=== PATIENT | female | born 1935 | race Caucasian/White ===

== ENCOUNTER → 2017-01-06 | Outpatient (CLI) | payer MEDICARE ==
[2016-04-15 11:15] VITALS: BP 99/36
[~2017-01-06] MED LIST: ASPI-630 PO; DORZ10DR3 OU; INSU100V11 IJ; MULT1TAB6 PO; NPH,100V SQ; NPH,100V5 SQ; TIMO5DRO26 OU; regular insulin SQ
--- NOTE | 2017-01-06 15:37 | RAD ---
Indication: Chronic low neck pain radiating to both shoulders. Time of exam 1510 hours. AP and lateral views of the cervical spine were obtained. Curvature is normal. There is minimal retrolisthesis of C2 on C3 and C3 on C4. There is multilevel degenerative disc disease, greatest at the C5-6 and C6-7 levels where there is moderate disc space narrowing and endplate osteophyte formation. There is multilevel facet arthropathy present as well. The prevertebral tissues are normal. No fractures are seen. Impression: Cervical spondylosis. No acute bony abnormality is detected.
--- NOTE | 2017-01-06 15:38 | RAD ---
Indication: Chronic back pain. Time of exam 1515 hours. AP and lateral views of the thoracic spine were obtained. Curvature and alignment of the thoracic spine is normal. The vertebral body heights are well-maintained. No acute compression fracture is detected. There is generalized degenerative disc disease. The pedicles and paraspinous line are intact. Impression: Thoracic spondylosis. No acute bony abnormality is detected.
== END | disposition home or self-care (01) ==
LOC: RAD 14:48
PROVIDERS: ATTEND Family Medicine
DX: M47.894 Other spondylosis, thoracic region (principal); M25.512 Pain in left shoulder; G89.29 Other chronic pain
CPT/HCPCS: 72040; 72072

== ENCOUNTER → 2017-01-19 | Outpatient (CLI) | payer MEDICARE ==
[2016-04-15 11:15] VITALS: BP 99/36
--- NOTE | 2017-01-19 13:37 | RAD ---
MRI of the cervical spine without contrast 01/19/2017 CLINICAL HISTORY: Neck pain with bilateral arm pain. TECHNIQUE: Unenhanced T1-weighted, T2-weighted and inversion recovery sagittal and gradient echo and T2-weighted axial images of the cervical spine were obtained. FINDINGS: Mild lateral curvature of the cervical spine is seen convex to the right. There is straightening of the normal cervical lordosis. Degenerative signal changes are seen involving all of the disks of the cervical spine. Degenerative signal changes are seen within the marrow surrounding all of the disks of the cervical spine. Loss of height of the C5-6 and C6-7 discs is noted. No area of abnormal signal intensity is seen involving the cervical spinal cord. Mild mucosal thickening is seen throughout the visualized paranasal sinuses. At the C2-3 disc space there is a mild generalized disc bulge. Degenerative changes are seen involving the uncovertebral and facet joints bilaterally. These findings do not result in significant central spinal canal or neural foraminal stenosis. At the C3-4 disc space there is a mild generalized disc bulge. Degenerative changes are seen involving the uncovertebral and facet joints, right greater than left. These findings do not result in significant central spinal canal or neural foraminal stenosis. At the C4-5 disc space there is a mild generalized disc bulge. Superimposed on this disc bulge is a central disc osteophyte complex. This measures 3 mm in AP diameter. Degenerative changes are seen involving the uncovertebral and facet joints, right greater than left. These findings efface the anterior and posterior CSF resulting in mild central spinal canal stenosis with mild cord impingement. Mild right-sided neural foraminal stenosis is seen. The left neural foramen is patent. At the C5-6 disc space there is a moderate generalized disc bulge. Degenerative changes are seen involving the uncovertebral and facet joints bilaterally. These findings efface the anterior and posterior CSF resulting in mild central spinal canal stenosis with mild cord impingement. Moderate bilateral neural foraminal stenosis is seen. At the C6-7 disc space there is a mild to moderate generalized disc bulge. Degenerative changes are seen uncovertebral and facet joints, left greater than right. These findings efface the anterior CSF resulting in mild central spinal canal stenosis without significant cord impingement. Mild left neural foraminal stenosis is seen. The right neural foramen is patent. At the C7-T1 disc space there is minimal generalized disc bulge. Degenerative changes are seen involving the facet joints bilaterally. These findings do not result in significant central spinal canal or neural foraminal stenosis. IMPRESSION: Degenerative changes are seen throughout the cervical spine. These findings result in mild central spinal canal stenosis with mild cord impingement at C4-5 and C5-6 and mild central spinal canal stenosis at C6-7. Mild right-sided neural foraminal stenosis is seen at C4-5. Moderate bilateral neural foraminal stenosis is seen at C5-6. Mild left neural foraminal stenosis is seen at C6-7. Electronically signed by: Dorian Rosa MD (01/19/2017 1:34 PM) [email or web address]
== END | disposition home or self-care (01) ==
LOC: MRI 13:50
PROVIDERS: ATTEND Family Medicine
DX: M47.892 Other spondylosis, cervical region (principal); M48.02 Spinal stenosis, cervical region
CPT/HCPCS: 72141

== ENCOUNTER → 2017-02-11 | Outpatient (CLI) | payer MEDICARE ==
[2016-04-15 11:15] VITALS: BP 99/36
[~2017-02-11] MED LIST changes: +methylPREDNISolone ACETATE 40 MG/ML VIAL. ONE; +methylPREDNISolone ACETATE 80 MG/ML VIAL. ONE
== END | disposition home or self-care (01) ==
LOC: PNCL 07:49
PROVIDERS: ATTEND Anesthesiology
DX: M50.123 Cervical disc disorder at C6-C7 level with radiculopathy (principal); M48.02 Spinal stenosis, cervical region; E66.9 Obesity, unspecified; F41.9 Anxiety disorder, unspecified; E78.00 Pure hypercholesterolemia, unspecified; F32.9 Major depressive disorder, single episode, unspecified; Z98.41 Cataract extraction status, right eye; Z98.42 Cataract extraction status, left eye; Z90.49 Acquired absence of other specified parts of digestive tract; Z68.45 Body mass index [BMI] 70 or greater, adult; Z86.39 Personal history of other endocrine, nutritional and metabolic disease; Z85.3 Personal history of malignant neoplasm of breast; Z83.3 Family history of diabetes mellitus; Z82.49 Family history of ischemic heart disease and other diseases of the circulatory system; Z88.1 Allergy status to other antibiotic agents; Z91.041 Radiographic dye allergy status; Z88.8 Allergy status to other drugs, medicaments and biological substances; Z91.048 Other nonmedicinal substance allergy status
CPT/HCPCS: 62321; J1030; J1040

== ENCOUNTER → 2017-06-21 | Outpatient (CLI) | payer MEDICARE ==
[2016-04-15 11:15] VITALS: BP 99/36
[~2017-06-21] MED LIST changes: -methylPREDNISolone ACETATE 40 MG/ML VIAL. ONE; -methylPREDNISolone ACETATE 80 MG/ML VIAL. ONE
--- NOTE | 2017-06-21 16:20 | CARD ---
APPROVED REPORT EXAM: Two-dimensional and M-mode echocardiogram with Doppler and color Doppler. Other Information Quality : GoodHR: 94bpm INDICATION Cardiomyopathy 2D DIMENSIONS RVDd2.8 (2.9-3.5cm)Left Atrium(2D)3.9 (1.6-4.0cm) IVSd1.3 (0.7-1.1cm)Aortic Root(2D)2.3 (2.0-3.7cm) LVDd5.2 (3.9-5.9cm)LVOT Diameter2.2 (1.8-2.4cm) PWd1.1 (0.7-1.1cm)LVDs3.3 (2.5-4.0cm) FS (%) 36.4 %PWs1.3 (0.8-1.2cm) SV83.4 mlLVEF(%)65.7 (>50%) Aortic Valve AoV Peak David.339.0cm/sAoV VTI72.7cm AO Peak GR.46.0mmHgLVOT Peak David.63.9cm/s LVOT VTI 12.27cmAO Mean GR.30mmHg DIGNA (VMAX)0.68xf2SAU (VTI)0.66cm2 AI P 1/2 Pngn370ql Mitral Valve MV E Qblvtqvq229.8cm/sMV E Peak Gr.138mmHg MV DECEL [id number] A Waqtbggx94.3cm/s MV SKM69dbR/A Ratio3.8 MVA (PHT)4.18cm2 TDI E/Lateral E'10.1E/Medial E'17.8 Tricuspid Valve TR P. Nbagezob394us/sRAP MGQMKDLU7veJa TR Peak Gr.40jdTzTDNN94fuFp Pulmonary Vein S1 Mnriokss59.2cm/sD2 Zyrwfutq37.2cm/s LEFT VENTRICLE The left ventricle is normal size. There is normal left ventricular wall thickness. Mild LV systolic dysfunction. EF 40-45% Septal motion suggestive of conduction abnormality, there is otherwise normal LV segmental wall motion. Tissue Doppler imaging reveals moderate left ventricular diastolic dysfunct ion. RIGHT VENTRICLE The right ventricle is normal size. The right ventricular systolic function is normal. ATRIA The left atrium is borderline dilated. The right atrium size is normal. The interatrial septum is int act with no evidence for an atrial septal defect or patent foramen ovale as noted on 2-D or Doppler i maging. AORTIC VALVE The aortic valve is moderately to severely calcified. Doppler and Color Flow revealed mild aortic reg urgitation. There is moderate to severe valvular aortic stenosis. MG 30 mm Hg, DIGNA 0.78. MG likely lo wer than actual due to mild LV dysfunction. MITRAL VALVE The mitral valve leaflets are thickened and calcified. There is no evidence of mitral valve prolapse. There is no mitral valve stenosis. Doppler and Color-flow revealed mild to moderate mitral regurgita tion. TRICUSPID VALVE The tricuspid valve leaflets are thickened or calcified, but open well. Doppler and Color Flow reveal ed mild to moderate tricuspid regurgitation. There is no tricuspid valve stenosis. PULMONIC VALVE Doppler and Color Flow revealed trace pulmonic valvular regurgitation. There is no pulmonic valvular stenosis. GREAT VESSELS The aortic root is normal in size. IVC was not enlarged but did not collape >50%. PERICARDIAL EFFUSION There is no pleural effusion. There is no evidence of significant pericardial effusion. Critical Notification Critical Value: No <Conclusion> Mild LV systolic dysfunction. EF 40-45% Septal motion suggestive of conduction abnormality, there is otherwise normal LV segmental wall motio n. Tissue Doppler imaging reveals moderate left ventricular diastolic dysfunction. There is moderate to severe valvular aortic stenosis. MG 30 mm Hg, DIGNA 0.78. MG likely lower than act ual due to mild LV dysfunction.
== END | disposition home or self-care (01) ==
LOC: ECHO 08:41
PROVIDERS: ATTEND Internal Medicine Cardiovascular Disease
DX: I42.9 Cardiomyopathy, unspecified (principal); I35.0 Nonrheumatic aortic (valve) stenosis; I34.0 Nonrheumatic mitral (valve) insufficiency
CPT/HCPCS: 93306

== ENCOUNTER 2017-07-16 07:32 | Emergency (ER) | payer MEDICARE ==
[2017-07-16] MEDS: IPRATRPIUM/ALBUTEROL 0.5/2.5MG 3 ML NEBU. NEB ×2 (07:59)
[2017-07-16 08:04] LABS: ADD MAN DIFF? NO
[2017-07-16 08:11] LABS: BASO # 0.1 x10^3/uL (0.0-0.2); BASO % 1 % (0-3); EOS # 0.2 x10^3/uL (0.0-0.7); EOS % 2 % (0-3); HEMATOCRIT 45.2 % (36.0-47.0); HEMOGLOBIN 14.8 g/dL (12.0-15.5); LYMPH % 15 % (24-48); MEAN CORPUSCULAR HEMOGLOBIN 29 pg (25-35); MEAN CORPUSCULAR HGB CONC 33 g/dL (31-37); MEAN CORPUSCULAR VOLUME 88 fL (79-100); MONO # 0.9 x10^3/uL (0.0-1.1); MONO % 13 % (0-9); NEUT # 4.8 x10^3uL (1.8-7.7); NEUT % 69 % (31-73); PLATELET COUNT 214 x10^3/uL (140-400); RED BLOOD COUNT 5.14 x10^6/uL (3.50-5.40); RED CELL DISTRIBUTION WIDTH 13.9 % (11.5-14.5); WHITE BLOOD COUNT 6.9 x10^3/uL (4.0-11.0)
[2017-07-16] MEDS ORDERED: ONDANSETRON PF 4 MG/2 ML VIAL. ×2 (08:14)
[2017-07-16 08:24] LABS: INFLUENZA A PATIENT NEGATIVE (NEGATIVE); INFLUENZA B PATIENT NEGATIVE (NEGATIVE); OBC FLU VALID
[2017-07-16] MEDS: ONDANSETRON PF 4 MG/2 ML VIAL. IV ×2 (08:25)
[2017-07-16 08:30] LABS: ANION GAP 6 (6-14); BLOOD UREA NITROGEN 13 mg/dL (7-20); BUN/CREATININE RATIO 19 (6-20); CALCIUM 8.7 mg/dL (8.5-10.1); CARBON DIOXIDE 27 mmol/L (21-32); CHLORIDE 102 mmol/L (98-107); CREATININE 0.7 mg/dL (0.6-1.0); GFR 80.3; GLUCOSE 177 mg/dL (70-99); POTASSIUM 4.3 mmol/L (3.5-5.1); SODIUM 135 mmol/L (136-145)
[2017-07-16 08:36] LABS: ALBUMIN 3.4 g/dL (3.4-5.0); ALBUMIN/GLOBULIN RATIO 0.9 (1.0-1.7); ALK PHOS 79 U/L (46-116); ALT (SGPT) 23 U/L (14-59); AST (SGOT) 22 U/L (15-37); TOTAL BILIRUBIN 0.5 mg/dL (0.2-1.0); TOTAL PROTEIN 7.3 g/dL (6.4-8.2)
[2017-07-16 08:40] LABS: TROPONINI < 0.017 ng/mL (0.000-0.055)
[2017-07-16 08:43] LABS: CKMB MASS 2.5 ng/mL (0.0-3.6); CREATINE KINASE 59 U/L (26-192)
[2017-07-16 08:43] LABS: NT-PRO BNP 1530 pg/mL (0-449)
[2017-07-16 09:05] LABS: BILIRUBIN,URINE NEGATIVE (NEG); CLARITY,URINE CLEAR; COLOR,URINE YELLOW; GLUCOSE,URINE 100 mg/dL (NEG); NITRITE,URINE NEGATIVE (NEG); PROTEIN,URINE NEGATIVE (NEG-TRACE); UROBILINOGEN,URINE 0.2 mg/dL (0.2 mg/dL)
[2017-07-16 09:17] LABS: BACTERIA,URINE FEW /HPF (0-FEW)
== END 2017-07-16 09:22 | disposition home or self-care (01) ==
LOC: ER 07:32
DX: J40 Bronchitis, not specified as acute or chronic (principal); N39.0 Urinary tract infection, site not specified; N30.00 Acute cystitis without hematuria; I25.10 Atherosclerotic heart disease of native coronary artery without angina pectoris; E10.40 Type 1 diabetes mellitus with diabetic neuropathy, unspecified; E10.39 Type 1 diabetes mellitus with other diabetic ophthalmic complication; H40.9 Unspecified glaucoma; H35.30 Unspecified macular degeneration; Z79.4 Long term (current) use of insulin; Z95.5 Presence of coronary angioplasty implant and graft; Z88.1 Allergy status to other antibiotic agents; Z88.5 Allergy status to narcotic agent; Z88.8 Allergy status to other drugs, medicaments and biological substances; Z91.041 Radiographic dye allergy status; Z90.12 Acquired absence of left breast and nipple; Z90.49 Acquired absence of other specified parts of digestive tract
CPT/HCPCS: 36415; 71046; 80053; 81001; 82553; 83880; 84484; 85025; 87086; 87186; 87804; 87804-59; 93005; 94640; 96374; 99285; 99285-25; J2405; J7620

== ENCOUNTER 2018-01-21 10:27 | Day surgery (SDC) | payer MEDICARE ==
[~2018-01-21 10:27] MED LIST changes: +0.9 % SODIUM CHLORIDE 10 ML DISP.SYRIN. IV; -ASPI-630 PO; -DORZ10DR3 OU; -INSU100V11 IJ; -MULT1TAB6 PO; -NPH,100V SQ; -NPH,100V5 SQ; -TIMO5DRO26 OU; -regular insulin SQ
[2018-01-21] MEDS: IV RINGERS,LACTATED 1000ML 1,000 ML IV (12:06)
[2018-01-21] MEDS ORDERED: LIDOCAINE 2% PF Vial for OR 5 ML VIAL. (12:21)
[2018-01-21] MEDS ORDERED: PROPOFOL 20 ML IV (12:21)
[2018-01-21 12:23] LABS: ANION GAP 8 (6-14); BLOOD UREA NITROGEN 17 mg/dL (7-20); CALCIUM 8.7 mg/dL (8.5-10.1); CARBON DIOXIDE 27 mmol/L (21-32); CHLORIDE 106 mmol/L (98-107); CREATININE 0.9 mg/dL (0.6-1.0); GFR 59.9; GLUCOSE 137 mg/dL (70-99); MAGNESIUM 1.8 mg/dL (1.8-2.4); POTASSIUM 4.1 mmol/L (3.5-5.1); SODIUM 141 mmol/L (136-145)
[2018-01-21 12:24] LABS: DIG < 0.2 ng/mL (0.9-2.0)
[2018-01-21 13:41] LABS: POC GLUCOSE 91 mg/dL (70-99)
== END 2018-01-21 14:54 | disposition home or self-care (01) ==
LOC: SURG 10:27
DX: I48.92 Unspecified atrial flutter (principal); I48.91 Unspecified atrial fibrillation; I25.10 Atherosclerotic heart disease of native coronary artery without angina pectoris; I35.0 Nonrheumatic aortic (valve) stenosis; E78.00 Pure hypercholesterolemia, unspecified; F41.9 Anxiety disorder, unspecified; Z88.1 Allergy status to other antibiotic agents; Z88.8 Allergy status to other drugs, medicaments and biological substances; Z98.42 Cataract extraction status, left eye; Z98.41 Cataract extraction status, right eye; Z96.1 Presence of intraocular lens; E11.39 Type 2 diabetes mellitus with other diabetic ophthalmic complication; H40.9 Unspecified glaucoma; Z95.5 Presence of coronary angioplasty implant and graft; Z95.0 Presence of cardiac pacemaker; Z87.01 Personal history of pneumonia (recurrent); Z90.49 Acquired absence of other specified parts of digestive tract; E66.9 Obesity, unspecified; Z85.3 Personal history of malignant neoplasm of breast; Z98.890 Other specified postprocedural states; Z79.4 Long term (current) use of insulin; Z79.82 Long term (current) use of aspirin; Z79.899 Other long term (current) drug therapy; Z68.27 Body mass index [BMI] 27.0-27.9, adult; Z83.3 Family history of diabetes mellitus; Z91.041 Radiographic dye allergy status; Z91.09 Other allergy status, other than to drugs and biological substances; Z95.4 Presence of other heart-valve replacement
CPT/HCPCS: 36415; 80048; 80162; 82962; 83735; 92960; 93005; J2001; J2704

== ENCOUNTER 2018-01-22 08:19 | Inpatient (IN) | payer MEDICARE ==
[2018-01-22 08:37] LABS: ADD MAN DIFF? NO
[2018-01-22 08:39] LABS: BASO % 0 % (0-3); EOS # 0.4 x10^3/uL (0.0-0.7); EOS % 6 % (0-3); HEMATOCRIT 38.9 % (36.0-47.0); LYMPH # 0.9 x10^3/uL (1.0-4.8); LYMPH % 14 % (24-48); MEAN CORPUSCULAR HEMOGLOBIN 30 pg (25-35); MEAN CORPUSCULAR HGB CONC 34 g/dL (31-37); MEAN CORPUSCULAR VOLUME 89 fL (79-100); MONO # 0.7 x10^3/uL (0.0-1.1); MONO % 11 % (0-9); NEUT # 4.6 x10^3uL (1.8-7.7); NEUT % 70 % (31-73); PLATELET COUNT 177 x10^3/uL (140-400); RED BLOOD COUNT 4.36 x10^6/uL (3.50-5.40); RED CELL DISTRIBUTION WIDTH 14.7 % (11.5-14.5); WHITE BLOOD COUNT 6.6 x10^3/uL (4.0-11.0)
[2018-01-22 08:48] LABS: INR 1.5 (0.8-1.1); PROTHROMBIN TIME PATIENT 17.7 SEC (11.7-14.0)
[2018-01-22 08:54] LABS: ANION GAP 5 (6-14); BLOOD UREA NITROGEN 20 mg/dL (7-20); BUN/CREATININE RATIO 22 (6-20); CALCIUM 8.8 mg/dL (8.5-10.1); CARBON DIOXIDE 28 mmol/L (21-32); CHLORIDE 102 mmol/L (98-107); CREATININE 0.9 mg/dL (0.6-1.0); GFR 59.9; GLUCOSE 262 mg/dL (70-99); POTASSIUM 4.6 mmol/L (3.5-5.1); SODIUM 135 mmol/L (136-145)
[2018-01-22 09:02] LABS: ALBUMIN 3.4 g/dL (3.4-5.0); ALK PHOS 111 U/L (46-116); ALT (SGPT) 37 U/L (14-59); AST (SGOT) 32 U/L (15-37); MAGNESIUM 1.7 mg/dL (1.8-2.4); TOTAL BILIRUBIN 1.1 mg/dL (0.2-1.0); TOTAL PROTEIN 6.8 g/dL (6.4-8.2)
[2018-01-22 09:03] LABS: TROPONINI < 0.017 ng/mL (0.000-0.055)
[2018-01-22 09:05] LABS: THYROID STIM HORMONE (TSH) 2.969 uIU/mL (0.358-3.74)
[2018-01-22 09:06] LABS: CKMB MASS 2.3 ng/mL (0.0-3.6); CREATINE KINASE 72 U/L (26-192)
[2018-01-22 09:06] LABS: NT-PRO BNP 1903 pg/mL (0-449)
[2018-01-22] MEDS ORDERED: ONDANSETRON PF 4 MG/2 ML VIAL. IV (10:30)
[2018-01-22 11:17] LABS: BILIRUBIN,URINE NEGATIVE (NEG); CLARITY,URINE CLEAR; COLOR,URINE YELLOW; GLUCOSE,URINE 100 mg/dL (NEG); NITRITE,URINE POSITIVE (NEG); PH,URINE 5.5; PROTEIN,URINE NEGATIVE (NEG-TRACE); UROBILINOGEN,URINE 0.2 mg/dL (0.2 mg/dL)
[2018-01-22 11:25] LABS: HYALINE CASTS, URINE FEW /HPF; SQUAMOUS EPITHELIAL CELL,UR FEW /LPF
[2018-01-22 11:27] LABS: BACTERIA,URINE MANY /HPF (0-FEW); WBC,URINE >40 /HPF (0-4)
[2018-01-22] MEDS: INSULIN LISPRO 300 UNITS/3 ML INSULN.PEN. SQ ×4 (12:00→21:00)
[2018-01-22] MEDS: DOXYCYCLINE HYCLATE 100 MG in IV DEXTROSE 5% 100ML 100 ML IV (12:04)
[2018-01-22 12:08] LABS: POC GLUCOSE 138 mg/dL (70-99)
[2018-01-22 15:03] LABS: TROPONINI < 0.017 ng/mL (0.000-0.055)
[2018-01-22] MEDS ORDERED: ENOXAPARIN 40 MG/0.4 ML SYRINGE. SQ (15:15)
[2018-01-22 15:34] LABS: ANION GAP 8 (6-14); BLOOD UREA NITROGEN 17 mg/dL (7-20); CALCIUM 8.8 mg/dL (8.5-10.1); CARBON DIOXIDE 27 mmol/L (21-32); CHLORIDE 103 mmol/L (98-107); CREATININE 0.8 mg/dL (0.6-1.0); GFR 68.7; GLUCOSE 189 mg/dL (70-99); POTASSIUM 4.2 mmol/L (3.5-5.1); SODIUM 138 mmol/L (136-145)
[2018-01-22] MEDS: TIMOLOL 0.5% OPHTH SOLUTION 5ML BOTTLE. OU (15:41)
[2018-01-22] MEDS: PANTOPRAZOLE 40 MG TABLET.DR. PO (15:49)
[2018-01-22] MEDS: ASPIRIN CHEWABLE 81 MG TABLET. PO (15:49)
[2018-01-22] MEDS: MULTIVITAMIN with MINERAL TABLET. PO ×2 (15:49→15:54)
[2018-01-22] MEDS: FUROSEMIDE 20 MG/2 ML VIAL. IVP (15:50)
[2018-01-22 15:58] LABS: POC GLUCOSE 187 mg/dL (70-99)
[2018-01-22] MEDS: INSULIN GLARGINE 300 UNITS/3 ML INSULN.PEN. SQ (21:00)
[2018-01-22 21:39] LABS: TROPONINI < 0.017 ng/mL (0.000-0.055)
[2018-01-22 22:01] LABS: POC GLUCOSE 57 mg/dL (70-99)
[2018-01-22] MEDS: DORZOLAMIDE 2% OPHTH SOLUTION 10ML BOTTLE. OU (22:04)
[2018-01-22] MEDS: APIXABAN 5 MG TABLET. PO (22:04)
[2018-01-22 22:22] LABS: POC GLUCOSE 72 mg/dL (70-99)
[2018-01-23 03:10] LABS: POC GLUCOSE 87 mg/dL (70-99)
[2018-01-23 04:05] LABS: ADD MAN DIFF? NO
[2018-01-23 04:22] LABS: BASO # 0.1 x10^3/uL (0.0-0.2); BASO % 2 % (0-3); EOS # 0.5 x10^3/uL (0.0-0.7); EOS % 7 % (0-3); HEMATOCRIT 38.8 % (36.0-47.0); HEMOGLOBIN 12.9 g/dL (12.0-15.5); LYMPH # 1.4 x10^3/uL (1.0-4.8); LYMPH % 20 % (24-48); MEAN CORPUSCULAR HEMOGLOBIN 29 pg (25-35); MEAN CORPUSCULAR HGB CONC 33 g/dL (31-37); MEAN CORPUSCULAR VOLUME 89 fL (79-100); MONO # 0.9 x10^3/uL (0.0-1.1); MONO % 14 % (0-9); NEUT # 4.1 x10^3uL (1.8-7.7); NEUT % 58 % (31-73); PLATELET COUNT 162 x10^3/uL (140-400); RED BLOOD COUNT 4.38 x10^6/uL (3.50-5.40)
[2018-01-23 04:37] LABS: ANION GAP 9 (6-14); BLOOD UREA NITROGEN 16 mg/dL (7-20); CALCIUM 8.5 mg/dL (8.5-10.1); CARBON DIOXIDE 27 mmol/L (21-32); CHLORIDE 105 mmol/L (98-107); CREATININE 0.9 mg/dL (0.6-1.0); GFR 59.9; GLUCOSE 96 mg/dL (70-99); MAGNESIUM 1.7 mg/dL (1.8-2.4); POTASSIUM 4.1 mmol/L (3.5-5.1); SODIUM 141 mmol/L (136-145)
[2018-01-23] MEDS: fentaNYL PF VIAL 100 MCG/2 ML VIAL IV (04:38)
[2018-01-23 05:01] LABS: TROPONINI < 0.017 ng/mL (0.000-0.055)
[2018-01-23 07:12] LABS: POC GLUCOSE 111 mg/dL (70-99)
[2018-01-23] MEDS: INSULIN LISPRO 300 UNITS/3 ML INSULN.PEN. SQ ×8 (07:30→21:00)
[2018-01-23] MEDS: PANTOPRAZOLE 40 MG TABLET.DR. PO (07:32)
[2018-01-23] MEDS: MULTIVITAMIN with MINERAL TABLET. PO (07:32)
[2018-01-23] MEDS: APIXABAN 5 MG TABLET. PO ×2 (07:33→21:26)
[2018-01-23] MEDS: FUROSEMIDE 20 MG/2 ML VIAL. IVP (07:33)
[2018-01-23] MEDS: ASPIRIN CHEWABLE 81 MG TABLET. PO (07:33)
[2018-01-23] MEDS: MAGNESIUM OXIDE 400 MG TABLET PO (08:18)
[2018-01-23] MEDS: DORZOLAMIDE 2% OPHTH SOLUTION 10ML BOTTLE. OU ×2 (08:19→21:26)
[2018-01-23] MEDS: INSULIN GLARGINE 300 UNITS/3 ML INSULN.PEN. SQ ×2 (08:21→21:27)
[2018-01-23] MEDS: TIMOLOL 0.5% OPHTH SOLUTION 5ML BOTTLE. OU (08:39)
[2018-01-23 11:09] LABS: POC GLUCOSE 236 mg/dL (70-99)
[2018-01-23] MEDS: ANTI-COAG MONITOR BY PHARMACY. MC (15:29)
[2018-01-23 16:52] LABS: POC GLUCOSE 75 mg/dL (70-99)
[2018-01-23 21:29] LABS: POC GLUCOSE 132 mg/dL (70-99)
[2018-01-24] MEDS: LORazepam 0.5 MG TABLET PO (00:28)
[2018-01-24] MEDS: INSULIN LISPRO 300 UNITS/3 ML INSULN.PEN. SQ ×7 (07:30→20:41)
[2018-01-24 08:10] LABS: POC GLUCOSE 102 mg/dL (70-99)
[2018-01-24] MEDS: INSULIN GLARGINE 300 UNITS/3 ML INSULN.PEN. SQ ×2 (08:18→20:42)
[2018-01-24] MEDS: MULTIVITAMIN with MINERAL TABLET. PO ×2 (09:00→09:47)
[2018-01-24] MEDS: TIMOLOL 0.5% OPHTH SOLUTION 5ML BOTTLE. OU (09:00)
[2018-01-24] MEDS: MAGNESIUM OXIDE 400 MG TABLET PO (09:47)
[2018-01-24] MEDS: DORZOLAMIDE 2% OPHTH SOLUTION 10ML BOTTLE. OU ×2 (09:47→20:51)
[2018-01-24] MEDS: PANTOPRAZOLE 40 MG TABLET.DR. PO (09:47)
[2018-01-24] MEDS: APIXABAN 5 MG TABLET. PO ×2 (09:47→20:40)
[2018-01-24] MEDS: ASPIRIN CHEWABLE 81 MG TABLET. PO (09:47)
[2018-01-24] MEDS: FUROSEMIDE 20 MG/2 ML VIAL. IVP (09:48)
[2018-01-24] MEDS: SMZ/TMP 800/160MG TABLET. PO ×2 (13:13→20:40)
[2018-01-24 13:55] LABS: MRSA BY PCR Negative (Negative)
[2018-01-24 17:09] LABS: POC GLUCOSE 140 mg/dL (70-99)
[2018-01-24 20:48] LABS: POC GLUCOSE 144 mg/dL (70-99)
[2018-01-25] MEDS: INSULIN LISPRO 300 UNITS/3 ML INSULN.PEN. SQ ×6 (07:30→17:36)
[2018-01-25] MEDS: PANTOPRAZOLE 40 MG TABLET.DR. PO (07:30)
[2018-01-25 07:49] LABS: POC GLUCOSE 98 mg/dL (70-99)
[2018-01-25] MEDS: ASPIRIN CHEWABLE 81 MG TABLET. PO (08:20)
[2018-01-25] MEDS: methylPREDNISolone SOD SUCC PF 125 MG/2 ML VIAL. IV (08:21)
[2018-01-25] MEDS: DORZOLAMIDE 2% OPHTH SOLUTION 10ML BOTTLE. OU (08:21)
[2018-01-25] MEDS: diphenhydrAMINE 50 MG/ML VIAL IV (08:21)
[2018-01-25] MEDS: FAMOTIDINE 20 MG/2 ML VIAL IVP (08:21)
[2018-01-25] MEDS ORDERED: IODIXANOL 320 MG/ML 100 ML VIAL. ×2 (08:37→09:22)
[2018-01-25] MEDS ORDERED: LIDOCAINE 2% 20 ML VIAL. (08:38)
[2018-01-25] MEDS: APIXABAN 5 MG TABLET. PO (09:00)
[2018-01-25] MEDS: MULTIVITAMIN with MINERAL TABLET. PO (09:00)
[2018-01-25] MEDS ORDERED: fentaNYL PF VIAL 100 MCG/2 ML VIAL (09:00)
[2018-01-25] MEDS: TIMOLOL 0.5% OPHTH SOLUTION 5ML BOTTLE. OU (09:00)
[2018-01-25] MEDS ORDERED: MIDAZOLAM HCL/PF 2 MG/2 ML VIAL. (09:00)
[2018-01-25] MEDS ORDERED: HEPARIN for IV BOLUS 10,000 UNIT/10 ML VIAL. (09:06)
[2018-01-25] MEDS ORDERED: VERAPAMIL 5 MG/2 ML VIAL. (09:06)
[2018-01-25] MEDS ORDERED: NITROGLYCERIN 200 MCG/2 ML SYRINGE FOR CATH/VASC LAB. (09:06)
[2018-01-25] MEDS: LIDOCAINE 2% 20 ML VIAL. IJ (09:15)
[2018-01-25] MEDS: fentaNYL PF VIAL 100 MCG/2 ML VIAL IV (09:42)
[2018-01-25] MEDS: VERAPAMIL 5 MG/2 ML VIAL. IART (09:43)
[2018-01-25] MEDS: NITROGLYCERIN 200 MCG/2 ML SYRINGE FOR CATH/VASC LAB. IART (09:43)
[2018-01-25] MEDS: MIDAZOLAM HCL/PF 2 MG/2 ML VIAL. IV (09:44)
[2018-01-25] MEDS: IODIXANOL 320 MG/ML 100 ML VIAL. IART (09:44)
[2018-01-25] MEDS: HEPARIN for IV BOLUS 10,000 UNIT/10 ML VIAL. IART (09:44)
[2018-01-25] MEDS ORDERED: NITROGLYCERIN SUBLINGUAL 0.4 MG BOTTLE OF 25. SL (10:30)
[2018-01-25] MEDS: MAGNESIUM OXIDE 400 MG TABLET PO (10:57)
[2018-01-25] MEDS: ISOSORBIDE MONONITRATE ER 30 MG TAB.ER.24H PO (10:57)
[2018-01-25] MEDS: FUROSEMIDE 20 MG TABLET PO (10:57)
[2018-01-25] MEDS: SMZ/TMP 800/160MG TABLET. PO (10:57)
[2018-01-25] MEDS: IV 1/2 NORMAL SALINE 1,000 ML IV (10:58)
[2018-01-25] MEDS: INSULIN GLARGINE 300 UNITS/3 ML INSULN.PEN. SQ (11:09)
[2018-01-25 11:58] LABS: POC GLUCOSE 239 mg/dL (70-99)
[2018-01-25 17:28] LABS: POC GLUCOSE 266 mg/dL (70-99)
[2018-01-25] MEDS ORDERED: LACTOBACILLUS RHAMNOSUS GG 1 CAPSULE. PO (21:00)
== END 2018-01-25 19:41 | disposition home or self-care (01) | DRG 286 ==
LOC: 1 WEST ICU 10:57 → ER 08:19 → 2 NORTH 01-24 09:30 → 1 WEST ICU 10:06
PROC: 4A023N7 Measurement of Cardiac Sampling and Pressure, Left Heart, Percutaneous Approach (ICD-10-PCS; principal; 2018-01-25)
PROC: B2111ZZ Fluoroscopy of Multiple Coronary Arteries using Low Osmolar Contrast (ICD-10-PCS; 2018-01-25)
DX: I11.0 Hypertensive heart disease with heart failure (principal); J96.01 Acute respiratory failure with hypoxia; I44.2 Atrioventricular block, complete; I48.92 Unspecified atrial flutter; N39.0 Urinary tract infection, site not specified; I20.1 Angina pectoris with documented spasm; I50.43 Acute on chronic combined systolic (congestive) and diastolic (congestive) heart failure; I42.9 Cardiomyopathy, unspecified; E11.40 Type 2 diabetes mellitus with diabetic neuropathy, unspecified; E78.5 Hyperlipidemia, unspecified; F41.9 Anxiety disorder, unspecified; H35.30 Unspecified macular degeneration; H40.9 Unspecified glaucoma; I25.111 Atherosclerotic heart disease of native coronary artery with angina pectoris with documented spasm; I35.0 Nonrheumatic aortic (valve) stenosis; I48.91 Unspecified atrial fibrillation; M19.90 Unspecified osteoarthritis, unspecified site; M48.02 Spinal stenosis, cervical region; Z82.49 Family history of ischemic heart disease and other diseases of the circulatory system; Z83.3 Family history of diabetes mellitus; Z85.3 Personal history of malignant neoplasm of breast; Z90.12 Acquired absence of left breast and nipple; Z90.49 Acquired absence of other specified parts of digestive tract; Z91.041 Radiographic dye allergy status; Z95.0 Presence of cardiac pacemaker; Z95.2 Presence of prosthetic heart valve
CPT/HCPCS: 36415; 71045; 80048; 80053; 80162; 81001; 82553; 82962; 83735; 83880; 84443; 84484; 85025; 85610; 87086; 87641; 93005; 93458; 93970; 97116-GP; 97161-GP; 99152; 99153; 99285; 99285-25; C1769; C1892; J1200; J1644; J1815; J2001; J2250; J2930; J3010; J3490; S0028

== ENCOUNTER → 2018-05-31 | Outpatient (CLI) | payer MEDICARE ==
[2018-01-25 15:00] VITALS: BP 152/61
[~2018-05-31] MED LIST changes: -0.9 % SODIUM CHLORIDE 10 ML DISP.SYRIN. IV; +APIX5TAB PO; +ASPI-630 PO; +DORZ10DR6 OU; +FURO20TA3 PO; +INSU100V11 IJ; +ISOS30TA4 PO; +MAGN400T22 PO; +MULT1TAB6 PO; +NPH,100V SQ; +NPH,100V5 SQ; +PANTOPRAZOLE PO; +PROAIR HFA8.5 GM INH; +SULF-143 PO; +TIMO5DRO26 OU; +regular insulin SQ
--- NOTE | 2018-05-31 12:25 | RAD ---
MRI Cervical Spine Without Contrast History: Worsening neck pain the last 2 years, left arm radiculopathy Technique: Multiplanar, multi sequential noncontrast MR imaging was performed of the cervical spine. Comparison: January 19, 2017 Findings: There is mild motion There is susceptibility artifact posteriorly of uncertain source. Cervical vertebral body stature is overall maintained. There is again advanced degenerative disc disease C6-7 and to lesser degree at C5-6. AP alignment is within normal limits. Cervical cord caliber is within limits without expansile signal change, limited evaluation for subtle signal change on this exam. There is trace C5-C6 endplate edema likely reactive/degenerative in etiology. C2-C3: There is buckling of the ligamentum flavum. There is very shallow posterior central protrusion. Central canal is borderline about 10 mm as measured on sagittal images. Neural foramina are adequate. C3-C4: Spinal canal and left neural foramen are adequate, mild narrowing of the right neural foramen due to minimal facet and uncovertebral degenerative change. C4-C5: There is mild buckling of the ligamentum flavum. There is fairly severe facet degenerative change bilaterally. There is posterior central protrusion as seen previously, indentation upon the ventral thecal sac with contact ventral cord. Central canal is narrowed to about 7 to 8 mm. There is very mild left and moderate to severe right neural foramina compromise, fairly similar. C5-C6: There is disc osteophyte complex and mild buckling of the ligamentum flavum, central canal narrowed to about 7 mm with effacement of ventral subarachnoid space and contact of the ventral surface of cord. There is bilateral facet and uncovertebral degenerative change contributing to severe left greater than right neural foramina compromise as seen previously. C6-C7: There is minimal disc osteophyte complex, central canal narrowed to 7-8 mm, effacement of ventral subarachnoid space. There is bilateral facet hypertrophic change and left uncovertebral degenerative change. There is again moderate to severe narrowing of the left neural foramen, right neural foramen overall adequate. C7-T1: Spinal canal and neural foramina are overall adequate. Impression: 1. Findings are similar compared with 2017 exam. There is again degenerative disc disease greatest at C6-7 and to lesser degree at C5-6. There is spinal stenosis on the order of 7 mm at C5-6 and to a somewhat lesser degree at C4-5 and C6-7. 2. Facet and uncovertebral degenerative change again contributes to neural foramina compromise as stated, more significant narrowing on the right at C4-C5, on the left at C6-7, and bilaterally at C5-6. Electronically signed by: Marck Stroud MD (05/31/2018 12:22 PM) [facility]
== END | disposition home or self-care (01) ==
LOC: MRI 10:48
PROVIDERS: ATTEND Family Medicine
DX: M50.322 Other cervical disc degeneration at C5-C6 level (principal); M50.221 Other cervical disc displacement at C4-C5 level; M48.02 Spinal stenosis, cervical region; M25.78 Osteophyte, vertebrae
CPT/HCPCS: 72141

== ENCOUNTER 2018-07-20 06:46 | Emergency (ER) | payer MEDICARE ==
[~2018-07-20] VITALS: Ht 172.7 cm; Wt 81.6 kg
[~2018-07-20 06:46] MED LIST changes: +ALBU2.5V8 INH; -PROAIR HFA8.5 GM INH
[2018-07-20] MEDS ORDERED: fentaNYL PF VIAL 100 MCG/2 ML VIAL IM ONE (07:15)
[2018-07-20] MEDS ORDERED: KETOROLAC 30 MG/ML VIAL. IM ONE (07:15)
--- NOTE | 2018-07-20 07:42 | PHYS DOC ---
Past Medical History Past Medical History: Arrhythmia, Bronchitis, CAD, Cancer, Diabetes-Type II, Glaucoma, Pneumonia Additional Past Medical Histor: DM neuropathy, degenerative disc disease, macular degeneration Past Surgical History: Appendectomy, Colectomy, Pacemaker, Other Additional Past Surgical Histo: L mastectomy, cardiac cath/stents x2, heart valve Alcohol Use: None Drug Use: None Adult General Chief Complaint Chief Complaint: BACK PAIN - NO INJURY HPI HPI Patient is an 82-year-old female who presents with complaint of right sided back pain. Patient has been suffering from upper respiratory viral infection for the last several days and has been coughing a lot. Patient states that she had a hard time sleeping last night because of the pain and states that she has not been Down flat. She states that at times the pain is worse with deep breathing. She denies any fever or shortness of breath. She states that the pain is intermittent in nature and only lasts for a few seconds at a time but states the pain is quite sharp and debilitated woman comes. She states that there appear to be no alleviating factors. Review of Systems Review of Systems Constitutional: Denies fever or chills [] Respiratory: Positive cough without shortness of breath [] Cardiovascular: No additional information not addressed in HPI [] GI: Denies abdominal pain, nausea, vomiting or diarrhea [] Musculoskeletal: Complains of right sided mid to upper back pain [] Integument: Denies rash or skin lesions [] Current Medications Current Medications Current Medications Medications (Trade) Dose Ordered Sig/Ashley Start Time Stop Time Status Last Admin Dose Admin Fentanyl Citrate (Fentanyl 2ml Vial) 50 mcg 1X ONCE 07/20/18 07:15 07/20/18 07:18 DC 07/20/18 07:35 50 MCG Ketorolac Tromethamine (Toradol 30mg Vial) 30 mg 1X ONCE 07/20/18 07:15 07/20/18 07:18 DC 07/20/18 07:35 30 MG Allergies Allergies Allergies Coded Allergies Type Severity Reaction Last Updated Verified iodine Allergy Severe Hives 01/23/18 Yes Shthksc-Ilu-Dul Reductase Inhibitor Allergy Intermediate 01/23/18 Yes clopidogrel Allergy Intermediate 01/23/18 Yes dobutamine Allergy Intermediate 01/22/18 Yes naproxen Allergy Intermediate 01/22/18 Yes prasugrel Allergy Intermediate 01/23/18 Yes fluticasone Allergy Unknown 07/20/18 Yes benzalkonium chloride Adverse Reaction Intermediate eye pain 01/23/18 Yes cefdinir Adverse Reaction Intermediate Nausea and Vomiting 01/19/18 Yes celecoxib Adverse Reaction Intermediate Nausea and Vomiting 01/19/18 Yes ciprofloxacin Adverse Reaction Intermediate Nausea and Vomiting 01/19/18 Yes clindamycin Adverse Reaction Intermediate Nausea and Vomiting 01/19/18 Yes cyclobenzaprine Adverse Reaction Intermediate Nausea and Vomiting 01/19/18 Yes dexamethasone Adverse Reaction Intermediate eye pain 01/23/18 Yes etodolac Adverse Reaction Intermediate Nausea and Vomiting 01/19/18 Yes gentamicin Adverse Reaction Intermediate eye pain and visioin changes (eye drops) 01/19/18 Yes hydrocodone Adverse Reaction Intermediate Nausea and Vomiting 01/19/18 Yes latanoprost Adverse Reaction Intermediate vision changes 01/19/18 Yes meloxicam Adverse Reaction Intermediate Nausea and Vomiting 01/19/18 Yes methocarbamol Adverse Reaction Intermediate Nausea and Vomiting 01/19/18 Yes omeprazole Adverse Reaction Intermediate nv 01/19/18 Yes oxycodone Adverse Reaction Intermediate SEVERE CONSTIPATION 01/19/18 Yes prednisone Adverse Reaction Intermediate Nausea and Vomiting 01/19/18 Yes ranitidine Adverse Reaction Intermediate Nausea and Vomiting 01/23/18 Yes timolol Adverse Reaction Intermediate vision changes 01/19/18 Yes travoprost Adverse Reaction Intermediate eye pain 01/23/18 Yes Physical Exam Physical Exam Constitutional: Well developed, well nourished, no acute distress, non-toxic appearance. [] Neck: Normal range of motion, no tenderness, supple, no stridor. [] Cardiovascular: Regular rate and rhythm [] Lungs & Thorax: Bilateral breath sounds clear to auscultation [] Skin: Warm, dry, no erythema, no rash. [] Back: There is tenderness to palpation in the right sided mid to upper paraspinal musculature. [] Current Patient Data Vital Signs Vital Signs Date Time Temp Pulse Resp B/P (MAP) Pulse Ox O2 Delivery O2 Flow Rate FiO2 07/20/18 07:00 97.5 80 18 126/83 (97) 99 Room Air 97.5 EKG EKG [] Radiology/Procedures Radiology/Procedures [] Impressions: PROCEDURE: RIBS RIGHT AND PA CHEST Right RIBS with chest, 3 views, 07/20/2017: HISTORY: Cough, back pain No right rib fracture is identified. A right-sided transvenous pacing device remains in place with 2 leads extending in the right heart. The heart is mildly enlarged. A stent-like radiopacity is projected over the aortic valve region probably representing an aortic valve replacement. There is calcific plaquing and tortuosity of the thoracic aorta. The pulmonary vascularity is normal. No pulmonary infiltrate is seen. There is no evidence of pleural fluid or pneumothorax. IMPRESSION: 1. No acute right rib abnormality is detected. 2. Mild cardiomegaly and aortic atherosclerosis. Electronically signed by: Tariq Castaneda MD (07/20/2018 7:51 AM) [facility] PROCEDURE: THORACIC SPINE 3V Thoracic spine, 07/20/2017: HISTORY: Cough, back pain The thoracic vertebral heights are well-maintained. There are mild scattered marginal spurs. No fracture or subluxation is evident. IMPRESSION: 1. Mild scattered degenerative changes. 2. No acute thoracic spine abnormality is detected. Electronically signed by: Tariq Castaneda MD (07/20/2018 7:52 AM) [facility] Course & Med Decision Making Course & Med Decision Making Pertinent Labs and Imaging studies reviewed. (See chart for details) [] Dragon Disclaimer Dragon Disclaimer This electronic medical record was generated, in whole or in part, using a voice recognition dictation system. Departure Departure Impression: Primary Impression: Upper back pain Additional Impression: Muscle spasm of back Disposition: 01 HOME, SELF-CARE Condition: STABLE Referrals: DE RANGEL MD (PCP) Patient Instructions: Back Pain, Adult Scripts Metaxalone (SKELAXIN) 800 Mg Tablet 0.5 TAB PO TID PRN for MUSCLE SPASMS, #30 TAB Prov: JEREMIAH ANDRADE Jr. DO 07/20/18 Problem Qualifiers JEREMIAH ANDRADE Jr. DO Jul 20, 2018 07:42
--- NOTE | 2018-07-20 07:55 | RAD ---
Right RIBS with chest, 3 views, 07/20/2017: HISTORY: Cough, back pain No right rib fracture is identified. A right-sided transvenous pacing device remains in place with 2 leads extending in the right heart. The heart is mildly enlarged. A stent-like radiopacity is projected over the aortic valve region probably representing an aortic valve replacement. There is calcific plaquing and tortuosity of the thoracic aorta. The pulmonary vascularity is normal. No pulmonary infiltrate is seen. There is no evidence of pleural fluid or pneumothorax. IMPRESSION: 1. No acute right rib abnormality is detected. 2. Mild cardiomegaly and aortic atherosclerosis. Electronically signed by: Tariq Castaneda MD (07/20/2018 7:51 AM) [facility]
--- NOTE | 2018-07-20 07:56 | RAD ---
Thoracic spine, 07/20/2017: HISTORY: Cough, back pain The thoracic vertebral heights are well-maintained. There are mild scattered marginal spurs. No fracture or subluxation is evident. IMPRESSION: 1. Mild scattered degenerative changes. 2. No acute thoracic spine abnormality is detected. Electronically signed by: Tariq Castaneda MD (07/20/2018 7:52 AM) [facility]
[2018-07-20] MEDS ORDERED: META-21 PO (08:14)
[2018-07-20 08:55] VITALS: BP 112/63
[2018-09-06] MEDS ORDERED: AMOX1TAB10 PO (17:01)
[2018-12-01] MEDS ORDERED: DOCU50LI12 PO (11:09)
[2018-12-01] MEDS ORDERED: POLY17PO28 PEG (12:04)
[2018-12-01] MEDS ORDERED: DOCU-109 PO (12:04)
[2018-12-01] MEDS ORDERED: PHEN177S7 PO (12:07)
[2019-02-09] MEDS ORDERED: SPIR25TA5 (17:07)
[2019-02-09] MEDS ORDERED: CARV3.123 (17:07)
[2019-02-10] MEDS ORDERED: HYDR25TA PO ×2 (08:28→08:46)
[2019-02-10] MEDS ORDERED: BUME1TAB3 PO ×2 (08:28)
[2019-02-10] MEDS ORDERED: SPIR25TA5 PO (08:28)
[2019-02-10] MEDS ORDERED: DOXY100C2 PO (08:48)
== END 2018-07-20 08:56 | disposition home or self-care (01) ==
LOC: ER 06:46
DX: M62.830 Muscle spasm of back (principal); R05 Cough; I51.7 Cardiomegaly; I70.0 Atherosclerosis of aorta; E11.40 Type 2 diabetes mellitus with diabetic neuropathy, unspecified; E11.39 Type 2 diabetes mellitus with other diabetic ophthalmic complication; I25.10 Atherosclerotic heart disease of native coronary artery without angina pectoris; Z90.89 Acquired absence of other organs; Z95.0 Presence of cardiac pacemaker; Z90.49 Acquired absence of other specified parts of digestive tract; Z95.5 Presence of coronary angioplasty implant and graft; Z91.041 Radiographic dye allergy status; Z88.5 Allergy status to narcotic agent; Z88.1 Allergy status to other antibiotic agents; Z88.6 Allergy status to analgesic agent; Z88.8 Allergy status to other drugs, medicaments and biological substances
CPT/HCPCS: 71101; 72072; 96372; 99283; J1885; J3010

== ENCOUNTER 2018-09-05 12:46 | Inpatient (IN) | payer MEDICARE ==
[~2018-09-05] VITALS: Ht 172.7 cm; Wt 88.6 kg
[~2018-09-05 12:46] MED LIST changes: +META-21 PO
--- NOTE | 2018-09-05 13:50 | NUR ---
The patient, PRATIMA COLON, 82 y/o, F admitted by DE ELENA MD, was given written information regarding hospital policies, unit procedures and contact persons. Valuables were checked and found to include clothing, socks and shoes. Pt oriented to room, hospital policies. Asked admission questions, with specific attention to allergies and code status. Pt and her son state she is a DNR, and DOES NOT wish to be resuscitated. Pt states this paperwork is on-file w/Dr. Elena, as well as the hospital records. Advised to bring a copy of DNR paperwork in to be placed in file.
[2018-09-05 15:00] VITALS: BP 112/75
[2018-09-05] MEDS ORDERED: PIP/TAZO PER PHARMACY MC PRN (16:15)
[2018-09-05] MEDS ORDERED: TIMOLOL 0.5% OPHTH SOLUTION 5ML BOTTLE. OU SCH (16:15)
--- NOTE | 2018-09-05 16:18 | RAD ---
DUPLEX SONOGRAPHY OF THE PERIPHERAL ARTERIAL SYSTEM OF [ ] Clinical indications: Diabetic left foot ulcer Findings: Duplex sonography of the peripheral arterial system of the left lower extremity including lai scale and color flow and spectral waveform analysis was performed. Biphasic No occlusive disease is seen. No significant plaque formation or stenosis is identified. The measurements were performed using the NASCET criteria. Peak systolic flow velocities are as follows: Left leg: common femoral artery- 167 cm/sec, profunda femoral artery -55 cm/sec, proximal superficial femoral artery- 129cm/sec, mid superficial femoral artery- 113 cm/sec, distal superficial femoral artery- 86 cm/sec, popliteal artery -87 cm/sec, distal posterior tibial artery- 65 cm/sec, peroneal artery -68 cm/sec, anterior tibial artery -69 cm/sec, dorsalis pedis artery- 107 cm/sec. Impression: No flow-limiting stenosis or occlusive disease of the left lower extremity is evident. Electronically signed by: Butch Stark MD (09/05/2018 4:15 PM) [facility]
[2018-09-05] MEDS: TIMOLOL 0.5% OPHTH SOLUTION 5ML BOTTLE. OU SCH (17:00)
--- NOTE | 2018-09-05 17:08 | RAD ---
Examination: CT left foot without contrast HISTORY: History of diabetic foot COMPARISON: None available Technique: Axial CT images of the left foot were performed without contrast. Coronal and sagittal reformats are performed. Exposure: One or more of the following individualized dose reduction techniques were utilized for this examination: 1. Automated exposure control 2. Adjustment of the mA and/or kV according to patient size 3. Use of iterative reconstruction technique FINDINGS: Hallux valgus identified. Mild degenerative changes identified in the first MTP joint. There is moderate degenerative changes identified in the tarsometatarsal joints. Os trigonum is identified. Small inferior calcaneal enthesophyte is identified. No evidence of cortical disruption is identified. Mild soft tissue edema identified in the foot diffusely. IMPRESSION: 1. No evidence of cortical disruption is identified. If there is clinical suspicion for osteomyelitis, recommend MRI or triphasic bone scan for further evaluation. 2. Moderate hallux valgus. Mild diffuse soft tissue swelling in the foot throughout. 3. Moderate degenerative changes tarsometatarsal joints. Electronically signed by: Conner Garcia MD (09/05/2018 5:05 PM) [facility]
--- NOTE | 2018-09-05 17:22 | HP ---
ADMIT DATE: 09/05/2018 CHIEF COMPLAINT: Left toe ulcer and leg swelling. HISTORY OF PRESENT ILLNESS AND HOSPITAL COURSE: This patient is an 82-year-old female who is seeing the photocopy operator and was found to have an open wound on left great toe. It was debrided and had redness consistent with possible infection. Therefore, she was transferred to the office for evaluation. She did have redness about her toe and some striations going upper extremity consistent with possible diabetic toe infection and cellulitis. Due to high risk for worsening infection and osteomyelitis, she was admitted for IV antibiotics and further evaluation by Infectious Disease and Wound Care. PAST MEDICAL HISTORY: Significant for: 1. Type 2 diabetes. 2. Valvular heart disease. 3. 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 4. Hyperlipidemia. 5. Macular degeneration. 6. Remote history of breast cancer. 7. Glaucoma. 8. History of atrial fibrillation status post cardioversion. 9. Aortic stenosis. ALLERGIES: The patient has a long list of allergies listed in multiple charts including PLAVIX, EFFIENT, IODINE, NAPROSYN, ZANTAC, MELOXICAM, PRILOSEC, CIPRO, FLEXERIL, CONTRAST DYE, STATIN MEDICATIONS, CLINDAMYCIN, METHOCARBAMOL, DOBUTAMINE, PROAIR, CODEINE, ZANAFLEX, ELIQUIS AND DOXYCYCLINE. MOST OF HER ALLERGIES ARE GI INTOLERANCES. 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 FAMILY HISTORY: Significant for mother who is and had osteoarthritis, father who is with complications of diabetes, and brother who is with complications of diabetes. SOCIAL HISTORY: The patient has never smoked. She does not use alcohol. She lives alone with support from her son. REVIEW OF SYSTEMS: The patient is having leg pains now for over 1 week, initially complaining of left heel pain as well as left leg swelling. She also had redness consistent with gouty arthritis. The patient developed an open wound on the day of admission and was debrided by Podiatry and felt to have a possible underlying infection. The patient complains of chronic back pains, neck pains, arm pains, lower extremity swelling. She denies fever, cough, congestion, nausea, vomiting or diarrhea. PHYSICAL EXAMINATION: GENERAL: This is a well-nourished, well-developed female, in mild distress. She is alert and oriented x 3. HEENT: Benign. NECK: Supple. CARDIAC: Regular rate and rhythm. LUNGS: Clear. ABDOMEN: Soft and nontender. EXTREMITIES: Poor pulses bilaterally with swelling and pallor noted. She also had a bleeding left great toe ulcer with crack in her metatarsal area and a bunion noted. She had redness and swelling to left lower extremity. ASSESSMENT: 1. Diabetic toe ulcer. 2. Peripheral vascular disease. 3. Coronary artery disease. 4. Osteoarthritis and spinal stenosis of lumbar spine and cervical spine. PLAN: To proceed with IV antibiotics. Infectious Disease consultation, Wound Care consultation and vascular studies. Consider consult to Vascular Surgery pending studies. DE RANGEL MD DR: GOYO/desirae JOB#: [id number] / [id number]
[2018-09-05 18:30] LABS: BASO % 1 % (0-3); EOS # 0.2 x10^3/uL (0.0-0.7); EOS % 3 % (0-3); HEMATOCRIT 41.5 % (36.0-47.0); HEMOGLOBIN 13.1 g/dL (12.0-15.5); LYMPH # 1.1 x10^3/uL (1.0-4.8); LYMPH % 18 % (24-48); MEAN CORPUSCULAR HEMOGLOBIN 27 pg (25-35); MEAN CORPUSCULAR HGB CONC 32 g/dL (31-37); MEAN CORPUSCULAR VOLUME 85 fL (79-100); MONO # 0.9 x10^3/uL (0.0-1.1); MONO % 15 % (0-9); NEUT # 3.9 x10^3uL (1.8-7.7); NEUT % 64 % (31-73); PLATELET COUNT 109 x10^3/uL (140-400); RED BLOOD COUNT 4.89 x10^6/uL (3.50-5.40); RED CELL DISTRIBUTION WIDTH 15.5 % (11.5-14.5); WHITE BLOOD COUNT 6.2 x10^3/uL (4.0-11.0)
[2018-09-05] MEDS: ENOXAPARIN 40 MG/0.4 ML SYRINGE. SQ SCH (18:31)
[2018-09-05] MEDS: INSULIN LISPRO 300 UNITS/3 ML INSULN.PEN. SQ SCH ×2 (18:38→21:54)
[2018-09-05 18:57] LABS: ALBUMIN 3.2 g/dL (3.4-5.0); ALBUMIN/GLOBULIN RATIO 0.9 (1.0-1.7); CALCIUM 8.9 mg/dL (8.5-10.1); CREATININE 1.3 mg/dL (0.6-1.0); GFR 39.2; POTASSIUM 3.8 mmol/L (3.5-5.1); TOTAL BILIRUBIN 1.1 mg/dL (0.2-1.0); TOTAL PROTEIN 6.7 g/dL (6.4-8.2)
[2018-09-05 19:00] VITALS: BP 119/74
[2018-09-05] MEDS: PIPERACILLIN/TAZOBACTAM 3.375 GM in IV NORMAL SALINE 50ML 50 ML IV SCH ×2 (19:52→23:51)
[2018-09-05] MEDS: TORSEMIDE 20 MG TABLET. PO SCH (21:44)
[2018-09-05] MEDS: DORZOLAMIDE 2% OPHTH SOLUTION 10ML BOTTLE. OU SCH (21:44)
[2018-09-05] MEDS: INSULIN GLARGINE 300 UNITS/3 ML INSULN.PEN. SQ SCH (21:53)
[2018-09-05 22:27] VITALS: BP 113/48
[2018-09-06 03:00] VITALS: BP 105/52
[2018-09-06 05:08] LABS: BASO # 0.1 x10^3/uL (0.0-0.2); BASO % 2 % (0-3); EOS # 0.2 x10^3/uL (0.0-0.7); EOS % 3 % (0-3); HEMATOCRIT 36.8 % (36.0-47.0); LYMPH # 1.2 x10^3/uL (1.0-4.8); LYMPH % 21 % (24-48); MEAN CORPUSCULAR HEMOGLOBIN 27 pg (25-35); MEAN CORPUSCULAR HGB CONC 33 g/dL (31-37); MEAN CORPUSCULAR VOLUME 84 fL (79-100); MONO % 17 % (0-9); NEUT # 3.5 x10^3uL (1.8-7.7); NEUT % 58 % (31-73); PLATELET COUNT 103 x10^3/uL (140-400); RED BLOOD COUNT 4.36 x10^6/uL (3.50-5.40); RED CELL DISTRIBUTION WIDTH 15.3 % (11.5-14.5)
[2018-09-06 05:22] LABS: CALCIUM 8.6 mg/dL (8.5-10.1); CREATININE 1.2 mg/dL (0.6-1.0); POTASSIUM 3.4 mmol/L (3.5-5.1)
[2018-09-06] MEDS: PIPERACILLIN/TAZOBACTAM 3.375 GM in IV NORMAL SALINE 50ML 50 ML IV SCH (06:14)
[2018-09-06] MEDS ORDERED: NITROGLYCERIN SUBLINGUAL 0.4 MG BOTTLE OF 25. SL ONE ×2 (06:36→07:00)
--- NOTE | 2018-09-06 06:44 | EKG ---
[facility] [address] [place] [address] Test Date: 2018-09-06 Test Time: 06:41:01 Pat Name: PRATIMA COLON Department: Room: [facility] Gender: F Emergency Manager: [facility] : 1935 Requested By: DE RANGEL Order Number: [id number] Reading MD: Cory Rothman Measurements Intervals [place] Rate: 86 P: 90 RI: 164 QRS: -77 QRSD: 188 T: 101 QT: 426 QTc: 513 Interpretive Statements ATRIAL SENSED VENTRICULAR PACED RHYTHM Electronically Signed On 09-13-2018 10:54:18 PRINT AND PATTERN DESIGNER by Cory Rothman
[2018-09-06 07:00] VITALS: BP 119/51
[2018-09-06] MEDS ORDERED: LIDO:MAALOX 1:1 20 ML SINGLE DOSE. SWSW ONE (07:30)
[2018-09-06] MEDS ORDERED: PANTOPRAZOLE 40 MG TABLET.DR. PO ONE (07:30)
--- NOTE | 2018-09-06 08:03 | NUR ---
Approximately 0615, patient reports chest discomfort, mid chest to epigastric pain, rapid called, 12 lead ekg obtained, Vanda, ICU chg nurse, read ekg, nitro x 1 sl given at 0637,reported a bit better, Monitor from crash cart connected as per Vanda rn request, call to Dr Hurley, orders rec d, ([id number]), denies to ae patient moved to monitored unit, to give protonix and GI cocktail and await troponin results, dressing changed, pictured.
[2018-09-06] MEDS: DORZOLAMIDE 2% OPHTH SOLUTION 10ML BOTTLE. OU SCH ×2 (08:31→21:18)
[2018-09-06] MEDS: TORSEMIDE 20 MG TABLET. PO SCH ×2 (08:32→21:19)
[2018-09-06] MEDS: TIMOLOL 0.5% OPHTH SOLUTION 5ML BOTTLE. OU SCH (08:34)
[2018-09-06] MEDS: INSULIN LISPRO 300 UNITS/3 ML INSULN.PEN. SQ SCH ×4 (08:48→21:25)
[2018-09-06] MEDS ORDERED: ASPIRIN CHEWABLE 81 MG TABLET. PO SCH (09:00)
[2018-09-06 11:00] VITALS: BP 115/52
--- NOTE | 2018-09-06 12:45 | PDOC ---
Infectious Disease Note Vital Sign Vital Signs Vital Signs Date Time Temp Pulse Resp B/P (MAP) Pulse Ox O2 Delivery O2 Flow Rate FiO2 09/06/18 11:00 98.1 76 19 115/52 (73) 98 Nasal Cannula 2.0 98.1 Labs Lab Laboratory Tests Test 09/05/18 13:41 09/05/18 17:40 09/05/18 18:15 09/05/18 21:30 Glucose (Fingerstick) 159 mg/dL (70-99) 253 mg/dL (70-99) 235 mg/dL (70-99) White Blood Count 6.2 x10^3/uL (4.0-11.0) Red Blood Count 4.89 x10^6/uL (3.50-5.40) Hemoglobin 13.1 g/dL (12.0-15.5) Hematocrit 41.5 % (36.0-47.0) Mean Corpuscular Volume 85 fL (79-100) Mean Corpuscular Hemoglobin 27 pg (25-35) Mean Corpuscular Hemoglobin Concent 32 g/dL (31-37) Red Cell Distribution Width 15.5 % (11.5-14.5) Platelet Count 109 x10^3/uL (140-400) Neutrophils (%) (Auto) 64 % (31-73) Lymphocytes (%) (Auto) 18 % (24-48) Monocytes (%) (Auto) 15 % (0-9) Eosinophils (%) (Auto) 3 % (0-3) Basophils (%) (Auto) 1 % (0-3) Neutrophils # (Auto) 3.9 x10^3uL (1.8-7.7) Lymphocytes # (Auto) 1.1 x10^3/uL (1.0-4.8) Monocytes # (Auto) 0.9 x10^3/uL (0.0-1.1) Eosinophils # (Auto) 0.2 x10^3/uL (0.0-0.7) Basophils # (Auto) 0.0 x10^3/uL (0.0-0.2) Erythrocyte Sedimentation Rate 1 (0-25) Sodium Level 138 mmol/L (136-145) Potassium Level 3.8 mmol/L (3.5-5.1) Chloride Level 98 mmol/L (98-107) Carbon Dioxide Level 35 mmol/L (21-32) Anion Gap 5 (6-14) Blood Urea Nitrogen 36 mg/dL (7-20) Creatinine 1.3 mg/dL (0.6-1.0) Estimated GFR (Cockcroft-Gault) 39.2 BUN/Creatinine Ratio 28 (6-20) Glucose Level 311 mg/dL (70-99) Uric Acid 8.1 mg/dL (2.6-6.0) Calcium Level 8.9 mg/dL (8.5-10.1) Total Bilirubin 1.1 mg/dL (0.2-1.0) Aspartate Amino Transf (AST/SGOT) 35 U/L (15-37) Alanine Aminotransferase (ALT/SGPT) 25 U/L (14-59) Alkaline Phosphatase 101 U/L (46-116) PG-Mrx-T-Type Natriuretic Peptide 1783 pg/mL (0-449) Total Protein 6.7 g/dL (6.4-8.2) Albumin 3.2 g/dL (3.4-5.0) Albumin/Globulin Ratio 0.9 (1.0-1.7) Test 09/06/18 04:10 09/06/18 07:25 09/06/18 07:32 White Blood Count 6.0 x10^3/uL (4.0-11.0) Red Blood Count 4.36 x10^6/uL (3.50-5.40) Hemoglobin 12.0 g/dL (12.0-15.5) Hematocrit 36.8 % (36.0-47.0) Mean Corpuscular Volume 84 fL (79-100) Mean Corpuscular Hemoglobin 27 pg (25-35) Mean Corpuscular Hemoglobin Concent 33 g/dL (31-37) Red Cell Distribution Width 15.3 % (11.5-14.5) Platelet Count 103 x10^3/uL (140-400) Neutrophils (%) (Auto) 58 % (31-73) Lymphocytes (%) (Auto) 21 % (24-48) Monocytes (%) (Auto) 17 % (0-9) Eosinophils (%) (Auto) 3 % (0-3) Basophils (%) (Auto) 2 % (0-3) Neutrophils # (Auto) 3.5 x10^3uL (1.8-7.7) Lymphocytes # (Auto) 1.2 x10^3/uL (1.0-4.8) Monocytes # (Auto) 1.0 x10^3/uL (0.0-1.1) Eosinophils # (Auto) 0.2 x10^3/uL (0.0-0.7) Basophils # (Auto) 0.1 x10^3/uL (0.0-0.2) Sodium Level 142 mmol/L (136-145) Potassium Level 3.4 mmol/L (3.5-5.1) Chloride Level 102 mmol/L (98-107) Carbon Dioxide Level 33 mmol/L (21-32) Anion Gap 7 (6-14) Blood Urea Nitrogen 36 mg/dL (7-20) Creatinine 1.2 mg/dL (0.6-1.0) Estimated GFR (Cockcroft-Gault) 43.0 Glucose Level 148 mg/dL (70-99) Calcium Level 8.6 mg/dL (8.5-10.1) Troponin I Quantitative 0.038 ng/mL (0.000-0.055) Glucose (Fingerstick) 131 mg/dL (70-99) Objective Assessment Left leg cellulitis Left foot wound DM HLD Plan Plan of Care change zosyn to augmentin leg elevation local care d/w dr Kassy DWYER,TESS [place] MD Sep 06, 2018 12:45
--- NOTE | 2018-09-06 13:12 | PDOC2 ---
NATALI JACOBS MEDICAL CODING SPECIALIST 09/06/18 1312: CARDIAC CONSULT DATE OF CONSULT Date of Consult DATE: 09/06/18 TIME: 12:52 REASON FOR CONSULT Reason for Consult: Chest pain REFERRING PHYSICIAN Referring Physician: Kassy SOURCE Source: Chart review, Patient HISTORY OF PRESENT ILLNESS HISTORY OF PRESENT ILLNESS This is a pleasant but anxious 82 yo female admitted for complains of leg swelling and redness to her LLE. Upon admission she has been noted with LLE cellulitis with toe wound needing IV antibiotics with possible osteomyelitis. She reports that since last night she has been having left chest discomfort none radiating felt like indigestion last night. This was not painful but just achy. No nausea or vomiting and no significant SOA compared to her baseline. No palpitations. She does not have any tele on 5 S as this is not equipped. She is currently sitting up in a WC getting ready for TTE and no discomfort or distress. PAST MEDICAL HISTORY Cardiovascular: AFIB (Past cardioversion), CAD, CHF, HTN, Hyperlipidemia, Aortic stenosis, Valve insufficiency Pulmonary: Pneumonia Heme/Onc: Cancer (breast) Psych: Anxiety Musculoskeletal: Osteoarthritis Rheumatologic: No pertinent hx Infectious disease: No pertinent hx ENT: Other (macular degeneration; glaucoma) Renal/: UTI Endocrine: Diabetes PAST SURGICAL HISTORY Past Surgical History: Pacemaker (medtronic), Other (TAVR; left lumpectomy) FAMILY HISTORY Family History: Diabetes SOCIAL HISTORY Smoke: Quit ALCOHOL: none Drugs: None Lives: Alone CURRENT MEDICATIONS CURRENT MEDICATIONS Current Medications Medications (Trade) Dose Ordered Sig/Ashley Route PRN Reason Start Time Stop Time Status Last Admin Dose Admin Aspirin (Children'S Aspirin) 81 mg DAILY PO 09/06/18 09:00 09/06/18 08:32 Dorzolamide HCl (Trusopt) 1 drop BID OU 09/05/18 21:00 09/06/18 08:31 Torsemide (Demadex) 20 mg BID PO 09/05/18 21:00 09/06/18 08:32 Insulin Glargine (Lantus) 15 units QHS SQ 09/05/18 21:00 09/05/18 21:53 Insulin Human Lispro (HumaLOG) 0-12 UNITS QIDACHS SQ 09/05/18 16:30 09/06/18 08:48 Enoxaparin Sodium (Lovenox 40mg Syringe) 40 mg Q24H SQ 09/05/18 17:00 09/05/18 18:31 Piperacillin Sod/ Tazobactam Sod 3.375 gm/Sodium Chloride 50 ml @ 100 mls/hr Q6HRS IV 09/05/18 17:00 09/06/18 12:44 DC 09/06/18 06:14 Pantoprazole Sodium (Protonix) 40 mg 1X ONCE PO 09/06/18 07:30 09/06/18 07:31 DC 09/06/18 07:47 Multi-Ingredient Mouthwash/Gargle (Gi Cocktail) 20 ml 1X ONCE SWSW 09/06/18 07:30 09/06/18 07:31 DC 09/06/18 07:46 ALLERGIES ALLERGIES: Coded Allergies: iodine (Verified Allergy, Severe, Hives, 01/23/18) Oiyswsa-Jdn-Nwe Reductase Inhibitor (Verified Allergy, Intermediate, ) clopidogrel (Verified Allergy, Intermediate, 01/23/18) dobutamine (Verified Allergy, Intermediate, 01/22/18) naproxen (Verified Allergy, Intermediate, 01/22/18) prasugrel (Verified Allergy, Intermediate, 01/23/18) fluticasone (Verified Allergy, Unknown, 07/20/18) benzalkonium chloride (Verified Adverse Reaction, Intermediate, eye pain, 01/23/18) cefdinir (Verified Adverse Reaction, Intermediate, Nausea and Vomiting, 05/29) celecoxib (Verified Adverse Reaction, Intermediate, Nausea and Vomiting, ) ciprofloxacin (Verified Adverse Reaction, Intermediate, Nausea and Vomiting, 01/19/18) clindamycin (Verified Adverse Reaction, Intermediate, Nausea and Vomiting , 01/19/18) cyclobenzaprine (Verified Adverse Reaction, Intermediate, Nausea and Vomiting, 01/19/18) dexamethasone (Verified Adverse Reaction, Intermediate, eye pain, 01/23/18) etodolac (Verified Adverse Reaction, Intermediate, Nausea and Vomiting, 05/29) gentamicin (Verified Adverse Reaction, Intermediate, eye pain and visioin changes (eye drops), 01/19/18) hydrocodone (Verified Adverse Reaction, Intermediate, Nausea and Vomiting , 01/19/18) DIARRHEA latanoprost (Verified Adverse Reaction, Intermediate, vision changes, 01/19) meloxicam (Verified Adverse Reaction, Intermediate, Nausea and Vomiting, ) methocarbamol (Verified Adverse Reaction, Intermediate, Nausea and Vomiting, 01/19/18) omeprazole (Verified Adverse Reaction, Intermediate, nv, 01/19/18) oxycodone (Verified Adverse Reaction, Intermediate, SEVERE CONSTIPATION, ) SEVERE CONSTIPATION prednisone (Verified Adverse Reaction, Intermediate, Nausea and Vomiting, 01/19/18) ranitidine (Verified Adverse Reaction, Intermediate, Nausea and Vomiting, 01/23/18) timolol (Verified Adverse Reaction, Intermediate, vision changes, 01/19/18) travoprost (Verified Adverse Reaction, Intermediate, eye pain, 01/23/18) ROS Review of System 14 point ROS evaluated with pertinent positives noted per HPI PHYSICAL EXAM General: Alert, Oriented X3, Cooperative, No acute distress HEENT: Atraumatic, Mucous membr. moist/pink Lungs: Other (diminished bases) Heart: Regular rate (paced per EKG), Other (3/6 systolic murmur to LLS border) Abdomen: Soft Extremities: No cyanosis, Other (2+ bilateral LE pitting edema) Skin: Other Neuro: Normal speech, Sensation intact Psych/Mental Status: Mental status NL, Other (anxious) MUSCULOSKELETAL: Osteoarthritic changes both hands VITALS VITALS Vital Signs Date Time Temp Pulse Resp B/P (MAP) Pulse Ox O2 Delivery O2 Flow Rate FiO2 09/06/18 11:00 98.1 76 19 115/52 (73) 98 Nasal Cannula 2.0 98.1 LABS Lab: Laboratory Tests Test 09/05/18 13:41 09/05/18 17:40 09/05/18 18:15 09/05/18 21:30 Glucose (Fingerstick) 159 mg/dL (70-99) 253 mg/dL (70-99) 235 mg/dL (70-99) White Blood Count 6.2 x10^3/uL (4.0-11.0) Red Blood Count 4.89 x10^6/uL (3.50-5.40) Hemoglobin 13.1 g/dL (12.0-15.5) Hematocrit 41.5 % (36.0-47.0) Mean Corpuscular Volume 85 fL (79-100) Mean Corpuscular Hemoglobin 27 pg (25-35) Mean Corpuscular Hemoglobin Concent 32 g/dL (31-37) Red Cell Distribution Width 15.5 % (11.5-14.5) Platelet Count 109 x10^3/uL (140-400) Neutrophils (%) (Auto) 64 % (31-73) Lymphocytes (%) (Auto) 18 % (24-48) Monocytes (%) (Auto) 15 % (0-9) Eosinophils (%) (Auto) 3 % (0-3) Basophils (%) (Auto) 1 % (0-3) Neutrophils # (Auto) 3.9 x10^3uL (1.8-7.7) Lymphocytes # (Auto) 1.1 x10^3/uL (1.0-4.8) Monocytes # (Auto) 0.9 x10^3/uL (0.0-1.1) Eosinophils # (Auto) 0.2 x10^3/uL (0.0-0.7) Basophils # (Auto) 0.0 x10^3/uL (0.0-0.2) Erythrocyte Sedimentation Rate 1 (0-25) Sodium Level 138 mmol/L (136-145) Potassium Level 3.8 mmol/L (3.5-5.1) Chloride Level 98 mmol/L (98-107) Carbon Dioxide Level 35 mmol/L (21-32) Anion Gap 5 (6-14) Blood Urea Nitrogen 36 mg/dL (7-20) Creatinine 1.3 mg/dL (0.6-1.0) Estimated GFR (Cockcroft-Gault) 39.2 BUN/Creatinine Ratio 28 (6-20) Glucose Level 311 mg/dL (70-99) Uric Acid 8.1 mg/dL (2.6-6.0) Calcium Level 8.9 mg/dL (8.5-10.1) Total Bilirubin 1.1 mg/dL (0.2-1.0) Aspartate Amino Transf (AST/SGOT) 35 U/L (15-37) Alanine Aminotransferase (ALT/SGPT) 25 U/L (14-59) Alkaline Phosphatase 101 U/L (46-116) FJ-Udc-U-Type Natriuretic Peptide 1783 pg/mL (0-449) Total Protein 6.7 g/dL (6.4-8.2) Albumin 3.2 g/dL (3.4-5.0) Albumin/Globulin Ratio 0.9 (1.0-1.7) Test 09/06/18 04:10 09/06/18 07:25 09/06/18 07:32 09/06/18 12:41 White Blood Count 6.0 x10^3/uL (4.0-11.0) Red Blood Count 4.36 x10^6/uL (3.50-5.40) Hemoglobin 12.0 g/dL (12.0-15.5) Hematocrit 36.8 % (36.0-47.0) Mean Corpuscular Volume 84 fL (79-100) Mean Corpuscular Hemoglobin 27 pg (25-35) Mean Corpuscular Hemoglobin Concent 33 g/dL (31-37) Red Cell Distribution Width 15.3 % (11.5-14.5) Platelet Count 103 x10^3/uL (140-400) Neutrophils (%) (Auto) 58 % (31-73) Lymphocytes (%) (Auto) 21 % (24-48) Monocytes (%) (Auto) 17 % (0-9) Eosinophils (%) (Auto) 3 % (0-3) Basophils (%) (Auto) 2 % (0-3) Neutrophils # (Auto) 3.5 x10^3uL (1.8-7.7) Lymphocytes # (Auto) 1.2 x10^3/uL (1.0-4.8) Monocytes # (Auto) 1.0 x10^3/uL (0.0-1.1) Eosinophils # (Auto) 0.2 x10^3/uL (0.0-0.7) Basophils # (Auto) 0.1 x10^3/uL (0.0-0.2) Sodium Level 142 mmol/L (136-145) Potassium Level 3.4 mmol/L (3.5-5.1) Chloride Level 102 mmol/L (98-107) Carbon Dioxide Level 33 mmol/L (21-32) Anion Gap 7 (6-14) Blood Urea Nitrogen 36 mg/dL (7-20) Creatinine 1.2 mg/dL (0.6-1.0) Estimated GFR (Cockcroft-Gault) 43.0 Glucose Level 148 mg/dL (70-99) Calcium Level 8.6 mg/dL (8.5-10.1) Troponin I Quantitative 0.038 ng/mL (0.000-0.055) Glucose (Fingerstick) 131 mg/dL (70-99) 189 mg/dL (70-99) ECHOCARDIOGRAM ECHOCARDIOGRAM <Conclusion> Mild LV systolic dysfunction. EF 40-45% Septal motion suggestive of conduction abnormality, there is otherwise normal LV segmental wall motion. Tissue Doppler imaging reveals moderate left ventricular diastolic dysfunction. There is moderate to severe valvular aortic stenosis. MG 30 mm Hg, DIGNA 0.78. MG likely lower than actual due to mild LV dysfunction. DATE: 06/21/17 1619 HEART CATH HEART CATH FINDINGS 1. Hemodynamics: Left ventricular end-diastolic pressure of 15 mmHg. No pullback gradient across the aortic valve. 2. Coronary angiography: a. The left main coronary artery arose from the left sinus of Valsalva, gave rise to the left anterior descending and left circumflex arteries and did not show any significant stenosis. b. The left anterior descending artery showed widely patent stent in the midsegment. c. The left circumflex artery showed chronic total occlusion involving the obtuse marginal branch (described in prior cardiac catheterizations) with distal reconstitution from right to left collaterals. d. The right coronary artery was a large and dominant vessel arising from the right sinus of Valsalva that showed long 70% stenosis involving the proximal to midsegment of the posterolateral branch that was medium caliber vessel at the most. Conclusion Widely patent previously placed stent in the left anterior descending artery, chronic total occlusion involving the obtuse marginal branch of left circumflex artery that was described in prior cardiac catheterizations and 70% stenosis involving a medium caliber posterolateral branch of right coronary artery that was described in last cardiac catheterization as well. Recommendations Medical Therapy DATE: 01/25/18 1020 ASSESSMENT/PLAN ASSESSMENT/PLAN 1. LLE cellulitis with toe wound with possible osteomyelitis: ID following 2. Atypical CP: no EKG changes Likely GI in etiology. 3. CAD: recent LHC as noted above. 4. Chronic systolic CHF: compensated 5. Hx of with TAVR 6. PPM in situ:CHB, medtronic Currently V paced. 7. PAFlutter: intrinsic atrial beat with V paced. 8. HTN: controlled 9. DM2/HLP 10. Multiple allergies including antiplatelets and iodine 11. JAVI vs CKD Recommendations TTE, PCXR, lipids, trend trop Replace K, continue diuretic. PPI Will consider for Outpt stress test. Limited options due to multiple allergies [facility]. Transfer to for tele TOR HUYNH MD 09/06/182032: CARDIAC CONSULT ASSESSMENT/PLAN ASSESSMENT/PLAN Patient seen and examined. Agree with [employer]INET ATTENDANT's assessment and plan. CP with atypical features and most probably GI etiology. TN ruled out. Recent cath results noted above. 2D echo showed EF 40-45%, unchanged from prior echo with normally functioning bioprosthetic aortic valve Chronic systolic HF well compensated. Continue current treatment for cellulitis. Thank you for your consultation. NATAIL JACOBS APRN Sep 06, 2018 13:12 TOR HUYNH MD Sep 06, 2018 20:33
--- NOTE | 2018-09-06 13:17 | PDOC ---
PROGRESS NOTES Subjective Subjective Patient eval shows no evidence of osteo. patient ready for d/c but had episode of Chest pain with sob card eval in progress. Objective Objective Vital Signs Date Time Temp Pulse Resp B/P (MAP) Pulse Ox O2 Delivery O2 Flow Rate FiO2 09/06/18 11:00 98.1 76 19 115/52 (73) 98 Nasal Cannula 2.0 98.1 Intake and Output 09/06/18 07:00 Intake Total 350 ml Output Total 200 ml Balance 150 ml Intake Oral 300 ml IV Total 50 ml Output Urine Total 200 ml # Voids 2 Physical Exam Abdomen: Normal bowel sounds Heart: Regular rate Extremities: No edema, Other (redness left pretibia area) General: Alert Assessment Assessment 1. Cellulitis left leg 2. Left great toe ulcer 3. Chest pain 4. Hyperlipidemia. 5. Type 2 diabetes 6. History of atrial fibrillation status post cardioversion 7. Aortic stenosis. 8. Valvular heart disease.. 9. Remote history of breast cancer 10..Macular degeneration. 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 Labs Laboratory Tests Test 09/05/18 13:41 09/05/18 17:40 09/05/18 18:15 09/05/18 21:30 Glucose (Fingerstick) 159 mg/dL (70-99) 253 mg/dL (70-99) 235 mg/dL (70-99) White Blood Count 6.2 x10^3/uL (4.0-11.0) Red Blood Count 4.89 x10^6/uL (3.50-5.40) Hemoglobin 13.1 g/dL (12.0-15.5) Hematocrit 41.5 % (36.0-47.0) Mean Corpuscular Volume 85 fL (79-100) Mean Corpuscular Hemoglobin 27 pg (25-35) Mean Corpuscular Hemoglobin Concent 32 g/dL (31-37) Red Cell Distribution Width 15.5 % (11.5-14.5) Platelet Count 109 x10^3/uL (140-400) Neutrophils (%) (Auto) 64 % (31-73) Lymphocytes (%) (Auto) 18 % (24-48) Monocytes (%) (Auto) 15 % (0-9) Eosinophils (%) (Auto) 3 % (0-3) Basophils (%) (Auto) 1 % (0-3) Neutrophils # (Auto) 3.9 x10^3uL (1.8-7.7) Lymphocytes # (Auto) 1.1 x10^3/uL (1.0-4.8) Monocytes # (Auto) 0.9 x10^3/uL (0.0-1.1) Eosinophils # (Auto) 0.2 x10^3/uL (0.0-0.7) Basophils # (Auto) 0.0 x10^3/uL (0.0-0.2) Erythrocyte Sedimentation Rate 1 (0-25) Sodium Level 138 mmol/L (136-145) Potassium Level 3.8 mmol/L (3.5-5.1) Chloride Level 98 mmol/L (98-107) Carbon Dioxide Level 35 mmol/L (21-32) Anion Gap 5 (6-14) Blood Urea Nitrogen 36 mg/dL (7-20) Creatinine 1.3 mg/dL (0.6-1.0) Estimated GFR (Cockcroft-Gault) 39.2 BUN/Creatinine Ratio 28 (6-20) Glucose Level 311 mg/dL (70-99) Uric Acid 8.1 mg/dL (2.6-6.0) Calcium Level 8.9 mg/dL (8.5-10.1) Total Bilirubin 1.1 mg/dL (0.2-1.0) Aspartate Amino Transf (AST/SGOT) 35 U/L (15-37) Alanine Aminotransferase (ALT/SGPT) 25 U/L (14-59) Alkaline Phosphatase 101 U/L (46-116) UP-Tui-E-Type Natriuretic Peptide 1783 pg/mL (0-449) Total Protein 6.7 g/dL (6.4-8.2) Albumin 3.2 g/dL (3.4-5.0) Albumin/Globulin Ratio 0.9 (1.0-1.7) Test 09/06/18 04:10 09/06/18 07:25 09/06/18 07:32 2/26/19 12:41 White Blood Count 6.0 x10^3/uL (4.0-11.0) Red Blood Count 4.36 x10^6/uL (3.50-5.40) Hemoglobin 12.0 g/dL (12.0-15.5) Hematocrit 36.8 % (36.0-47.0) Mean Corpuscular Volume 84 fL (79-100) Mean Corpuscular Hemoglobin 27 pg (25-35) Mean Corpuscular Hemoglobin Concent 33 g/dL (31-37) Red Cell Distribution Width 15.3 % (11.5-14.5) Platelet Count 103 x10^3/uL (140-400) Neutrophils (%) (Auto) 58 % (31-73) Lymphocytes (%) (Auto) 21 % (24-48) Monocytes (%) (Auto) 17 % (0-9) Eosinophils (%) (Auto) 3 % (0-3) Basophils (%) (Auto) 2 % (0-3) Neutrophils # (Auto) 3.5 x10^3uL (1.8-7.7) Lymphocytes # (Auto) 1.2 x10^3/uL (1.0-4.8) Monocytes # (Auto) 1.0 x10^3/uL (0.0-1.1) Eosinophils # (Auto) 0.2 x10^3/uL (0.0-0.7) Basophils # (Auto) 0.1 x10^3/uL (0.0-0.2) Sodium Level 142 mmol/L (136-145) Potassium Level 3.4 mmol/L (3.5-5.1) Chloride Level 102 mmol/L (98-107) Carbon Dioxide Level 33 mmol/L (21-32) Anion Gap 7 (6-14) Blood Urea Nitrogen 36 mg/dL (7-20) Creatinine 1.2 mg/dL (0.6-1.0) Estimated GFR (Cockcroft-Gault) 43.0 Glucose Level 148 mg/dL (70-99) Calcium Level 8.6 mg/dL (8.5-10.1) Troponin I Quantitative 0.038 ng/mL (0.000-0.055) Glucose (Fingerstick) 131 mg/dL (70-99) 189 mg/dL (70-99) Laboratory Tests Test 2/25/19 13:41 09/05/18 17:40 09/05/18 18:15 09/05/18 21:30 Glucose (Fingerstick) 159 mg/dL (70-99) 253 mg/dL (70-99) 235 mg/dL (70-99) White Blood Count 6.2 x10^3/uL (4.0-11.0) Red Blood Count 4.89 x10^6/uL (3.50-5.40) Hemoglobin 13.1 g/dL (12.0-15.5) Hematocrit 41.5 % (36.0-47.0) Mean Corpuscular Volume 85 fL (79-100) Mean Corpuscular Hemoglobin 27 pg (25-35) Mean Corpuscular Hemoglobin Concent 32 g/dL (31-37) Red Cell Distribution Width 15.5 % (11.5-14.5) Platelet Count 109 x10^3/uL (140-400) Neutrophils (%) (Auto) 64 % (31-73) Lymphocytes (%) (Auto) 18 % (24-48) Monocytes (%) (Auto) 15 % (0-9) Eosinophils (%) (Auto) 3 % (0-3) Basophils (%) (Auto) 1 % (0-3) Neutrophils # (Auto) 3.9 x10^3uL (1.8-7.7) Lymphocytes # (Auto) 1.1 x10^3/uL (1.0-4.8) Monocytes # (Auto) 0.9 x10^3/uL (0.0-1.1) Eosinophils # (Auto) 0.2 x10^3/uL (0.0-0.7) Basophils # (Auto) 0.0 x10^3/uL (0.0-0.2) Erythrocyte Sedimentation Rate 1 (0-25) Sodium Level 138 mmol/L (136-145) Potassium Level 3.8 mmol/L (3.5-5.1) Chloride Level 98 mmol/L (98-107) Carbon Dioxide Level 35 mmol/L (21-32) Anion Gap 5 (6-14) Blood Urea Nitrogen 36 mg/dL (7-20) Creatinine 1.3 mg/dL (0.6-1.0) Estimated GFR (Cockcroft-Gault) 39.2 BUN/Creatinine Ratio 28 (6-20) Glucose Level 311 mg/dL (70-99) Uric Acid 8.1 mg/dL (2.6-6.0) Calcium Level 8.9 mg/dL (8.5-10.1) Total Bilirubin 1.1 mg/dL (0.2-1.0) Aspartate Amino Transf (AST/SGOT) 35 U/L (15-37) Alanine Aminotransferase (ALT/SGPT) 25 U/L (14-59) Alkaline Phosphatase 101 U/L (46-116) ZA-Lda-U-Type Natriuretic Peptide 1783 pg/mL (0-449) Total Protein 6.7 g/dL (6.4-8.2) Albumin 3.2 g/dL (3.4-5.0) Albumin/Globulin Ratio 0.9 (1.0-1.7) Test 09/06/18 04:10 09/06/18 07:25 09/06/18 07:32 09/06/18 12:41 White Blood Count 6.0 x10^3/uL (4.0-11.0) Red Blood Count 4.36 x10^6/uL (3.50-5.40) Hemoglobin 12.0 g/dL (12.0-15.5) Hematocrit 36.8 % (36.0-47.0) Mean Corpuscular Volume 84 fL (79-100) Mean Corpuscular Hemoglobin 27 pg (25-35) Mean Corpuscular Hemoglobin Concent 33 g/dL (31-37) Red Cell Distribution Width 15.3 % (11.5-14.5) Platelet Count 103 x10^3/uL (140-400) Neutrophils (%) (Auto) 58 % (31-73) Lymphocytes (%) (Auto) 21 % (24-48) Monocytes (%) (Auto) 17 % (0-9) Eosinophils (%) (Auto) 3 % (0-3) Basophils (%) (Auto) 2 % (0-3) Neutrophils # (Auto) 3.5 x10^3uL (1.8-7.7) Lymphocytes # (Auto) 1.2 x10^3/uL (1.0-4.8) Monocytes # (Auto) 1.0 x10^3/uL (0.0-1.1) Eosinophils # (Auto) 0.2 x10^3/uL (0.0-0.7) Basophils # (Auto) 0.1 x10^3/uL (0.0-0.2) Sodium Level 142 mmol/L (136-145) Potassium Level 3.4 mmol/L (3.5-5.1) Chloride Level 102 mmol/L (98-107) Carbon Dioxide Level 33 mmol/L (21-32) Anion Gap 7 (6-14) Blood Urea Nitrogen 36 mg/dL (7-20) Creatinine 1.2 mg/dL (0.6-1.0) Estimated GFR (Cockcroft-Gault) 43.0 Glucose Level 148 mg/dL (70-99) Calcium Level 8.6 mg/dL (8.5-10.1) Troponin I Quantitative 0.038 ng/mL (0.000-0.055) Glucose (Fingerstick) 131 mg/dL (70-99) 189 mg/dL (70-99) Medications Current Medications Aspirin (Children'S Aspirin) 81 mg DAILY PO Last administered on 09/06/18 08: 32; Start 09/06/18 at 09:00 Dorzolamide HCl (Trusopt) 1 drop BID OU Last administered on 09/06/18at 08:31; Start 09/05/18 at 21:00 Timolol Maleate (Timoptic 0.5% [facility]) 1 drop DAILY OU ; Start 09/05/18 at 16:15 ; Stop 09/05/18 at 16:37; Status DC Torsemide (Demadex) 20 mg BID PO Last administered on 09/06/18at 08:32; Start at 21:00 Insulin Glargine (Lantus) 15 units QHS SQ Last administered on 09/05/18at 21:53 ; Start 09/05/18 at 21:00 Insulin Human Lispro (HumaLOG) 0-12 UNITS QIDACHS SQ Last administered on at 12:52; Start 09/05/18 at 16:30 Piperacillin Sod/ Tazobactam Sod (Zosyn Per Pharmacy) 1 each PRN DAILY PRN MC SEE COMMENTS; Start 09/05/18 at 16:15; Stop 09/06/18 at 12:46; Status DC Enoxaparin Sodium (Lovenox 40mg Syringe) 40 mg Q24H SQ Last administered on at 18:31; Start 09/05/18 at 17:00 Piperacillin Sod/ Tazobactam Sod 3.375 gm/Sodium Chloride 50 ml @ 100 mls/hr Q6HRS IV Last administered on 09/06/18at 06:14; Start 09/05/18 at 17:00; Stop at 12:44; Status DC Timolol Maleate (Timoptic 0.5% Ophth) 1 drop DAILY OU ; Start 09/05/18 at 17:00 Nitroglycerin (Nitrostat) 0.4 mg STK-MED ONCE SL ; Start 09/06/18 at 06:36; Stop 09/06/18 at 06:37; Status DC Pantoprazole Sodium (Protonix) 40 mg 1X ONCE PO Last administered on at 07:47; Start 09/06/18 at 07:30; Stop 09/06/18 at 07:31; Status DC Multi-Ingredient Mouthwash/Gargle (Gi Cocktail) 20 ml 1X ONCE SWSW Last administered on 09/06/18at 07:46; Start 09/06/18 at 07:30; Stop 09/06/18 at 07:31 ; Status DC Amoxicillin/ Clavulanate Potassium (Augmentin 500/ 125mg) 1 tab BID PO ; Start 09/06/18 at 13:30 Active Scripts Active Mag-Oxide (Magnesium Oxide) 400 Mg Tablet 400 Mg PO DAILY 30 Days Furosemide 20 Mg Tablet 20 Mg PO DAILY 30 Days Reported [Pantoprazole] 40 Mg PO DAILY Novolin R (Insulin Regular, Human) 100 Unit/1 Ml Vial 5 Unit IJ SUPPER TIME Novolin N (Nph, Human Insulin Isophane) 100 Unit/1 Ml Vial 5 Unit SQ HS Novolin N (Nph, Human Insulin Isophane) 100 Unit/1 Ml Vial 25 Unit SQ EVERY A.M. Centrum Complete Multivit Tab (Multivitamin/Iron/Folic Acid) 1 Each Tablet 1 Each PO DAILY LAST DOSE GIVEN: DATE:04/15/16 TIME:9:00 a.m. NEXT DOSE DUE: DATE:04/16/16 TIME:9:00 a.m. Aspirin 81 Mg Tab.chew 81 Mg PO DAILY continue home schedule Dorzolamide Hcl 10 Ml Drops 1 Drop OU BID LAST DOSE GIVEN: DATE:04/15/16 TIME:9:00 p.m. NEXT DOSE DUE: DATE:04/15/16 TIME:9:00 p.m. Betimol (Timolol) 5 Ml Drops 1 Drop OU DAILY Vitals/I & O Vital Sign - Last 24 Hours 09/05/18 09/05/18 09/05/18 09/05/18 13:50 13:50 15:00 19:00 Temp 97.8 97.8 97.8 97.8 Pulse 75 74 Resp 18 18 B/P (MAP) 112/75 (87) 119/74 (89) Pulse Ox 96 97 O2 Delivery Room Air Room Air Room Air Room Air 09/05/18 09/05/18 09/06/18 09/06/18 20:00 22:27 03:00 07:00 Temp 97.6 97.6 98.0 97.6 97.6 98.0 Pulse 84 67 83 Resp 16 17 21 B/P (MAP) 113/48 (69) 105/52 (69) 119/51 (73) Pulse Ox 96 96 98 O2 Delivery Room Air Room Air Room Air Room Air 09/06/18 09/06/18 08:00 11:00 Temp 98.1 98.1 Pulse 76 Resp 19 B/P (MAP) 115/52 (73) Pulse Ox 98 O2 Delivery Nasal Cannula Nasal Cannula O2 Flow Rate 2.0 Intake and Output 09/05/18 09/05/18 09/06/18 15:00 23:00 07:00 Intake Total 350 ml 0 ml Output Total 200 ml Balance 150 ml 0 ml DE RANGEL MD Sep 06, 2018 13:17
[2018-09-06] MEDS: AMOXICILLIN/K CLAV 500/125MG TABLET. PO SCH ×2 (13:30→21:19)
[2018-09-06 13:40] LABS: CHOLESTEROL/HDL RATIO 2.5
--- NOTE | 2018-09-06 14:03 | RAD ---
EXAM: Chest, single view. HISTORY: Shortness of air. COMPARISON: 01/21/2018 FINDINGS: A frontal view the chest obtained. There is stable central interstitial prominence without la congestion. There is stable suspected bilateral basilar atelectasis. There is a stable prominent cardiac silhouette and there are cardiac pacemaker leads in expected position. There is a calcified granuloma within the right upper lobe. IMPRESSION: 1. Stable mild central and interstitial prominence without la congestion. 2. Stable suspected bilateral basilar atelectasis and prominent cardiac silhouette. Electronically signed by: Rica Herring MD (09/06/2018 2:00 PM) [place] [id number]
--- NOTE | 2018-09-06 14:50 | NUR ---
This nurse spoke with Dr. Rose at nurses station before administering pt. 1200 zosyn. stated it was ok to administer and would be DC'd later. This nurse scanned and administered the medication but was unable to save the scan r/t already discontinuing medication in the eMAR.
--- NOTE | 2018-09-06 15:03 | PDOC2 ---
CONSULT Date of Consult Date of Consult DATE: 09/06/18 TIME: 14:51 Reason for Consult Reason for Consult: Left foot ulceration and cellulitis Referring Physician Referring Physician: Dr. Elena Identification/Chief Complaint Chief Complaint Left toe ulcer with swelling in a diabetic patient Source Source: Chart review, Patient History of Present Illness Reason for Visit: This is an 82-year-old patient recently admitted to the hospital with ulceration to the left medial forefoot. Evidence of cellulitis and concern for bone infection prompted hospital admission and IV antibiotic therapy. At this point she has undergone CT scan which was negative for bone involvement, sedimentation rate is 1 and arterial system duplex sonography demonstrated no flow limiting stenosis or occlusive disease of the left lower extremity. Patient reports improved redness. She is aware of some modest discomfort. She was not aware of other foot ulcerations or injuries. She does not wear special shoe wear. She has not been aware of fever, chills or significant change in energy level. Appetite and intake are marginal. Infectious diseases is managing an IV antibiotic therapy regimen. Past Medical History Cardiovascular: AFIB (Past cardioversion), CAD, CHF, HTN, Hyperlipidemia, Aortic stenosis, Valve insufficiency Pulmonary: Pneumonia Heme/Onc: Cancer (breast) Musculoskeletal: Osteoarthritis ENT: Other (macular degeneration; glaucoma) Renal/: UTI Endocrine: Diabetes Past Surgical History Past Surgical History: Pacemaker (medtronic), Other (TAVR; left lumpectomy) Family History Family History: Diabetes Social History Quit ALCOHOL: none Drugs: None Lives: Alone Current Medications Current Medications Current Medications Aspirin (Children'S Aspirin) 81 mg DAILY PO Last administered on 09/06/18at 08: 32; Start 09/06/18 at 09:00 Dorzolamide HCl (Trusopt) 1 drop BID OU Last administered on 09/06/18at 08:31; Start 09/05/18 at 21:00 Timolol Maleate (Timoptic 0.5% [facility]) 1 drop DAILY OU ; Start 09/05/18 at 16:15 ; Stop 09/05/18 at 16:37; Status DC Torsemide (Demadex) 20 mg BID PO Last administered on 09/06/18at 08:32; Start at 21:00 Insulin Glargine (Lantus) 15 units QHS SQ Last administered on 09/05/18at 21:53 ; Start 09/05/18 at 21:00 Insulin Human Lispro (HumaLOG) 0-12 UNITS QIDACHS SQ Last administered on at 12:52; Start 09/05/18 at 16:30 Piperacillin Sod/ Tazobactam Sod (Zosyn Per Pharmacy) 1 each PRN DAILY PRN MC SEE COMMENTS; Start 09/05/18 at 16:15; Stop 09/06/18 at 12:46; Status DC Enoxaparin Sodium (Lovenox 40mg Syringe) 40 mg Q24H SQ Last administered on at 18:31; Start 09/05/18 at 17:00 Piperacillin Sod/ Tazobactam Sod 3.375 gm/Sodium Chloride 50 ml @ 100 mls/hr Q6HRS IV Last administered on 09/06/18at 06:14; Start 09/05/18 at 17:00; Stop at 12:44; Status DC Timolol Maleate (Timoptic 0.5% Oph) 1 drop DAILY OU ; Start 09/05/18 at 17:00 Nitroglycerin (Nitrostat) 0.4 mg STK-MED ONCE SL ; Start 09/06/18 at 06:36; Stop 09/06/18 at 06:37; Status DC Pantoprazole Sodium (Protonix) 40 mg 1X ONCE PO Last administered on at 07:47; Start 09/06/18 at 07:30; Stop 09/06/18 at 07:31; Status DC Multi-Ingredient Mouthwash/Gargle (Gi Cocktail) 20 ml 1X ONCE SWSW Last administered on 09/06/18at 07:46; Start 09/06/18 at 07:30; Stop 09/06/18 at 07:31 ; Status DC Amoxicillin/ Clavulanate Potassium (Augmentin 500/ 125mg) 1 tab BID PO ; Start 09/06/18 at 13:30 Lactobacillus Rhamnosus (Culturelle) 1 cap BID PO ; Start 09/06/18 at 21:00 Active Scripts Active Mag-Oxide (Magnesium Oxide) 400 Mg Tablet 400 Mg PO DAILY 30 Days Furosemide 20 Mg Tablet 20 Mg PO DAILY 30 Days Reported [Pantoprazole] 40 Mg PO DAILY Novolin R (Insulin Regular, Human) 100 Unit/1 Ml Vial 5 Unit IJ SUPPER TIME Novolin N (Nph, Human Insulin Isophane) 100 Unit/1 Ml Vial 5 Unit SQ HS Novolin N (Nph, Human Insulin Isophane) 100 Unit/1 Ml Vial 25 Unit SQ EVERY A.M. Centrum Complete Multivit Tab (Multivitamin/Iron/Folic Acid) 1 Each Tablet 1 Each PO DAILY LAST DOSE GIVEN: DATE:04/15/16 TIME:9:00 a.m. NEXT DOSE DUE: DATE:04/16/16 TIME:9:00 a.m. Aspirin 81 Mg Tab.chew 81 Mg PO DAILY continue home schedule Dorzolamide Hcl 10 Ml Drops 1 Drop OU BID LAST DOSE GIVEN: DATE:04/15/16 TIME:9:00 p.m. NEXT DOSE DUE: DATE:04/15/16 TIME:9:00 p.m. Betimol (Timolol) 5 Ml Drops 1 Drop OU DAILY Allergies Allergies: Coded Allergies: iodine (Verified Allergy, Severe, Hives, 01/23/18) Dwgrwyh-Lja-Bkc Reductase Inhibitor (Verified Allergy, Intermediate, ) clopidogrel (Verified Allergy, Intermediate, 01/23/18) dobutamine (Verified Allergy, Intermediate, 01/22/18) naproxen (Verified Allergy, Intermediate, 01/22/18) prasugrel (Verified Allergy, Intermediate, 01/23/18) fluticasone (Verified Allergy, Unknown, 07/20/18) benzalkonium chloride (Verified Adverse Reaction, Intermediate, eye pain, 01/23/18) cefdinir (Verified Adverse Reaction, Intermediate, Nausea and Vomiting, 05/29) celecoxib (Verified Adverse Reaction, Intermediate, Nausea and Vomiting, ) ciprofloxacin (Verified Adverse Reaction, Intermediate, Nausea and Vomiting, 01/19/18) clindamycin (Verified Adverse Reaction, Intermediate, Nausea and Vomiting , 01/19/18) cyclobenzaprine (Verified Adverse Reaction, Intermediate, Nausea and Vomiting, 01/19/18) dexamethasone (Verified Adverse Reaction, Intermediate, eye pain, 01/23/18) etodolac (Verified Adverse Reaction, Intermediate, Nausea and Vomiting, 05/29) gentamicin (Verified Adverse Reaction, Intermediate, eye pain and visioin changes (eye drops), 01/19/18) hydrocodone (Verified Adverse Reaction, Intermediate, Nausea and Vomiting , 01/19/18) DIARRHEA latanoprost (Verified Adverse Reaction, Intermediate, vision changes, 01/19) meloxicam (Verified Adverse Reaction, Intermediate, Nausea and Vomiting, ) methocarbamol (Verified Adverse Reaction, Intermediate, Nausea and Vomiting, 01/19/18) omeprazole (Verified Adverse Reaction, Intermediate, nv, 01/19/18) oxycodone (Verified Adverse Reaction, Intermediate, SEVERE CONSTIPATION, ) SEVERE CONSTIPATION prednisone (Verified Adverse Reaction, Intermediate, Nausea and Vomiting, 01/19/18) ranitidine (Verified Adverse Reaction, Intermediate, Nausea and Vomiting, 01/23/18) timolol (Verified Adverse Reaction, Intermediate, vision changes, 01/19/18) travoprost (Verified Adverse Reaction, Intermediate, eye pain, 01/23/18) ROS Review of System Review of systems negative except as reported below Musculoskeletal: Yes Joint Pain (particularly large joints), Yes Joint Stiffness, Yes Other (chronic low back pain) Neurological: Yes Numbness/Tingling (lower extremities) Skin: Yes Dry Skin (she is aware of cracking in the feet and hands) Physical Exam General: Alert, Oriented X3, Cooperative, No acute distress HEENT: Atraumatic, Mucous membr. moist/pink Lungs: Clear to auscultation, Normal air movement Heart: Regular rate Abdomen: Soft, No tenderness Extremities: No clubbing, No cyanosis, No edema, Other (quanta flow is 1.05 on the left and 1.18 on the right) Skin: Other (left first MTP area medially demonstrates a diabetic Marshall 1 ulceration measuring 0.3 cm x 2.5 cm x 0.2 cm with evidence of skin breakdown only. Right third toe distal tip demonstrates a diabetic Marshall 1 ulceration measuring 0.3 cm x 0.3 cm x 0.3 cm with evidence of fat layer exposure. Modest periwound erythema is identified at the left great MTP ulceration.) Neuro: Normal speech, Other (patient requires assistance of walker for ambulation. Poor sensation is demonstrated at the plantar surface bilateral feet ) MUSCULOSKELETAL: Not examined Vitals VITALS Vital Signs Date Time Temp Pulse Resp B/P (MAP) Pulse Ox O2 Delivery O2 Flow Rate FiO2 09/06/18 11:00 98.1 76 19 115/52 (73) 98 Nasal Cannula 2.0 98.1 Labs Labs Laboratory Tests Test 09/05/18 13:41 2/25/19 17:40 09/05/18 18:15 09/05/18 21:30 Glucose (Fingerstick) 159 mg/dL (70-99) 253 mg/dL (70-99) 235 mg/dL (70-99) White Blood Count 6.2 x10^3/uL (4.0-11.0) Red Blood Count 4.89 x10^6/uL (3.50-5.40) Hemoglobin 13.1 g/dL (12.0-15.5) Hematocrit 41.5 % (36.0-47.0) Mean Corpuscular Volume 85 fL (79-100) Mean Corpuscular Hemoglobin 27 pg (25-35) Mean Corpuscular Hemoglobin Concent 32 g/dL (31-37) Red Cell Distribution Width 15.5 % (11.5-14.5) Platelet Count 109 x10^3/uL (140-400) Neutrophils (%) (Auto) 64 % (31-73) Lymphocytes (%) (Auto) 18 % (24-48) Monocytes (%) (Auto) 15 % (0-9) Eosinophils (%) (Auto) 3 % (0-3) Basophils (%) (Auto) 1 % (0-3) Neutrophils # (Auto) 3.9 x10^3uL (1.8-7.7) Lymphocytes # (Auto) 1.1 x10^3/uL (1.0-4.8) Monocytes # (Auto) 0.9 x10^3/uL (0.0-1.1) Eosinophils # (Auto) 0.2 x10^3/uL (0.0-0.7) Basophils # (Auto) 0.0 x10^3/uL (0.0-0.2) Erythrocyte Sedimentation Rate 1 (0-25) Sodium Level 138 mmol/L (136-145) Potassium Level 3.8 mmol/L (3.5-5.1) Chloride Level 98 mmol/L (98-107) Carbon Dioxide Level 35 mmol/L (21-32) Anion Gap 5 (6-14) Blood Urea Nitrogen 36 mg/dL (7-20) Creatinine 1.3 mg/dL (0.6-1.0) Estimated GFR (Cockcroft-Gault) 39.2 BUN/Creatinine Ratio 28 (6-20) Glucose Level 311 mg/dL (70-99) Uric Acid 8.1 mg/dL (2.6-6.0) Calcium Level 8.9 mg/dL (8.5-10.1) Total Bilirubin 1.1 mg/dL (0.2-1.0) Aspartate Amino Transf (AST/SGOT) 35 U/L (15-37) Alanine Aminotransferase (ALT/SGPT) 25 U/L (14-59) Alkaline Phosphatase 101 U/L (46-116) ZU-Tba-D-Type Natriuretic Peptide 1783 pg/mL (0-449) Total Protein 6.7 g/dL (6.4-8.2) Albumin 3.2 g/dL (3.4-5.0) Albumin/Globulin Ratio 0.9 (1.0-1.7) Test 09/06/18 04:10 09/06/18 07:25 09/06/18 07:32 09/06/18 12:10 White Blood Count 6.0 x10^3/uL (4.0-11.0) Red Blood Count 4.36 x10^6/uL (3.50-5.40) Hemoglobin 12.0 g/dL (12.0-15.5) Hematocrit 36.8 % (36.0-47.0) Mean Corpuscular Volume 84 fL (79-100) Mean Corpuscular Hemoglobin 27 pg (25-35) Mean Corpuscular Hemoglobin Concent 33 g/dL (31-37) Red Cell Distribution Width 15.3 % (11.5-14.5) Platelet Count 103 x10^3/uL (140-400) Neutrophils (%) (Auto) 58 % (31-73) Lymphocytes (%) (Auto) 21 % (24-48) Monocytes (%) (Auto) 17 % (0-9) Eosinophils (%) (Auto) 3 % (0-3) Basophils (%) (Auto) 2 % (0-3) Neutrophils # (Auto) 3.5 x10^3uL (1.8-7.7) Lymphocytes # (Auto) 1.2 x10^3/uL (1.0-4.8) Monocytes # (Auto) 1.0 x10^3/uL (0.0-1.1) Eosinophils # (Auto) 0.2 x10^3/uL (0.0-0.7) Basophils # (Auto) 0.1 x10^3/uL (0.0-0.2) Sodium Level 142 mmol/L (136-145) Potassium Level 3.4 mmol/L (3.5-5.1) Chloride Level 102 mmol/L (98-107) Carbon Dioxide Level 33 mmol/L (21-32) Anion Gap 7 (6-14) Blood Urea Nitrogen 36 mg/dL (7-20) Creatinine 1.2 mg/dL (0.6-1.0) Estimated GFR (Cockcroft-Gault) 43.0 Glucose Level 148 mg/dL (70-99) Calcium Level 8.6 mg/dL (8.5-10.1) Triglycerides Level 40 mg/dL (0-150) Cholesterol Level 96 mg/dL (0-200) LDL Cholesterol, Calculated 50 mg/dL (0-100) VLDL Cholesterol, Calculated 8 mg/dL (0-40) Non-HDL Cholesterol Calculated 58 mg/dL (0-129) HDL Cholesterol 38 mg/dL (40-60) Cholesterol/HDL Ratio 2.5 Troponin I Quantitative 0.038 ng/mL (0.000-0.055) 0.031 ng/mL (0.000-0.055) Glucose (Fingerstick) 131 mg/dL (70-99) Test 09/06/18 12:41 Glucose (Fingerstick) 189 mg/dL (70-99) Laboratory Tests Test 09/05/18 17:40 09/05/18 18:15 09/05/18 21:30 09/06/18 04:10 Glucose (Fingerstick) 253 mg/dL (70-99) 235 mg/dL (70-99) White Blood Count 6.2 x10^3/uL (4.0-11.0) 6.0 x10^3/uL (4.0-11.0) Red Blood Count 4.89 x10^6/uL (3.50-5.40) 4.36 x10^6/uL (3.50-5.40) Hemoglobin 13.1 g/dL (12.0-15.5) 12.0 g/dL (12.0-15.5) Hematocrit 41.5 % (36.0-47.0) 36.8 % (36.0-47.0) Mean Corpuscular Volume 85 fL (79-100) 84 fL (79-100) Mean Corpuscular Hemoglobin 27 pg (25-35) 27 pg (25-35) Mean Corpuscular Hemoglobin Concent 32 g/dL (31-37) 33 g/dL (31-37) Red Cell Distribution Width 15.5 % (11.5-14.5) 15.3 % (11.5-14.5) Platelet Count 109 x10^3/uL (140-400) 103 x10^3/uL (140-400) Neutrophils (%) (Auto) 64 % (31-73) 58 % (31-73) Lymphocytes (%) (Auto) 18 % (24-48) 21 % (24-48) Monocytes (%) (Auto) 15 % (0-9) 17 % (0-9) Eosinophils (%) (Auto) 3 % (0-3) 3 % (0-3) Basophils (%) (Auto) 1 % (0-3) 2 % (0-3) Neutrophils # (Auto) 3.9 x10^3uL (1.8-7.7) 3.5 x10^3uL (1.8-7.7) Lymphocytes # (Auto) 1.1 x10^3/uL (1.0-4.8) 1.2 x10^3/uL (1.0-4.8) Monocytes # (Auto) 0.9 x10^3/uL (0.0-1.1) 1.0 x10^3/uL (0.0-1.1) Eosinophils # (Auto) 0.2 x10^3/uL (0.0-0.7) 0.2 x10^3/uL (0.0-0.7) Basophils # (Auto) 0.0 x10^3/uL (0.0-0.2) 0.1 x10^3/uL (0.0-0.2) Erythrocyte Sedimentation Rate 1 (0-25) Sodium Level 138 mmol/L (136-145) 142 mmol/L (136-145) Potassium Level 3.8 mmol/L (3.5-5.1) 3.4 mmol/L (3.5-5.1) Chloride Level 98 mmol/L (98-107) 102 mmol/L (98-107) Carbon Dioxide Level 35 mmol/L (21-32) 33 mmol/L (21-32) Anion Gap 5 (6-14) 7 (6-14) Blood Urea Nitrogen 36 mg/dL (7-20) 36 mg/dL (7-20) Creatinine 1.3 mg/dL (0.6-1.0) 1.2 mg/dL (0.6-1.0) Estimated GFR (Cockcroft-Gault) 39.2 43.0 BUN/Creatinine Ratio 28 (6-20) Glucose Level 311 mg/dL (70-99) 148 mg/dL (70-99) Uric Acid 8.1 mg/dL (2.6-6.0) Calcium Level 8.9 mg/dL (8.5-10.1) 8.6 mg/dL (8.5-10.1) Total Bilirubin 1.1 mg/dL (0.2-1.0) Aspartate Amino Transf (AST/SGOT) 35 U/L (15-37) Alanine Aminotransferase (ALT/SGPT) 25 U/L (14-59) Alkaline Phosphatase 101 U/L (46-116) PR-Wgc-L-Type Natriuretic Peptide 1783 pg/mL (0-449) Total Protein 6.7 g/dL (6.4-8.2) Albumin 3.2 g/dL (3.4-5.0) Albumin/Globulin Ratio 0.9 (1.0-1.7) Triglycerides Level 40 mg/dL (0-150) Cholesterol Level 96 mg/dL (0-200) LDL Cholesterol, Calculated 50 mg/dL (0-100) VLDL Cholesterol, Calculated 8 mg/dL (0-40) Non-HDL Cholesterol Calculated 58 mg/dL (0-129) HDL Cholesterol 38 mg/dL (40-60) Cholesterol/HDL Ratio 2.5 Test 09/06/18 07:25 09/06/18 07:32 09/06/18 12:10 09/06/18 12:41 Troponin I Quantitative 0.038 ng/mL (0.000-0.055) 0.031 ng/mL (0.000-0.055) Glucose (Fingerstick) 131 mg/dL (70-99) 189 mg/dL (70-99) Images Images Arterial duplex sonogram and CT scan findings are reviewed Assessment/Plan Assessment/Plan Diabetic Marshall 1 ulceration left forefoot with evidence of skin breakdown only complicated by cellulitis Diabetic Marshall 1 ulceration right third toe with evidence of fat layer exposure Appropriate Xeroform dressings ordered and applied. These can be changed on every 2-3 day basis. Will accomplish transcutaneous oximetry in the next day to assess microvascular perfusion status. We'll be happy to follow along if needed. We do not she has retained podiatry care thank you for allowing us per to participate in this patient's care ERICK CLARKE DO Sep 06, 2018 15:03
--- NOTE | 2018-09-06 15:54 | NUR ---
Transfer Note: Received report on pt transferring to [facility]. Assessment, orientation to unit. Valuables checked. Verbalized understanding.
--- NOTE | 2018-09-06 16:10 | CARD ---
MR#: [id number] Date of Study: 09/06/2018 Ordering Physician: NATALI JACOBS, Referring Physician: DE RANGEL Tech: Giovana Gan JONAS APPROVED REPORT EXAM: Two-dimensional and M-mode echocardiogram with Doppler and color Doppler. Other Information Quality : Fair INDICATION Dyspnea Surgery/Intervention Pacemaker: Date: 2016 2D DIMENSIONS RVDd3.8 (2.9-3.5cm)Left Atrium(2D)4.9 (1.6-4.0cm) IVSd1.0 (0.7-1.1cm)Aortic Root(2D)2.1 (2.0-3.7cm) LVDd5.9 (3.9-5.9cm)LVOT Diameter2.0 (1.8-2.4cm) PWd1.0 (0.7-1.1cm)LVDs3.2 (2.5-4.0cm) FS (%) 20.0 %SV130.9 ml Aortic Valve AoV Peak David.164.1cm/sAoV VTI27.8cm AO Peak GR.10.8mmHgLVOT Peak David.64.9cm/s AO Mean GR.5mmHgAVA (VMAX)1.22cm2 DIGNA (VTI)1.43cm2 Mitral Valve MV E Ynkwbirl780.4cm/sMV DECEL [id number] MV A Vlzlwkzb03.9cm/sE/A Ratio2.1 Tricuspid Valve TR P. Doueurht523yf/sRAP EDVARZQB32dxVm TR Peak Gr.40hrJfIQUE48kuQk Pulmonary Vein S1 Weyauczp76.7cm/sD2 Jagycpto46.7cm/s LEFT VENTRICLE The Left Ventricle is borderline dilated. There is normal left ventricular wall thickness. Left ventr icle systolic function is mildly impaired. The Ejection Fraction is 40-45%. Apical motion consistent with pacemaker activation. There is global hypokinesis of the left ventricle. Transmitral Doppler mariam w pattern is Grade II-pseudonormal filling dynamics. RIGHT VENTRICLE The right ventricle is mild to moderately dilated. Systolic function is mildly reduced. There is a de vice lead in the right ventricle. ATRIA The left atrium is mildly dilated. The right atrium is mildly dilated. A device lead is seen in the r ight atrium consistent with history. The interatrial septum is intact with no evidence for an atrial septal defect or patent foramen ovale as noted on 2-D or Doppler imaging. AORTIC VALVE Doppler and Color Flow revealed no significant aortic regurgitation. Calculated aortic valve area is 1.4 cm2 with maximum pressure gradient of 11 mmHg and mean pressure gradient of 6 mmHg. A TAVR proced ure was done on this patient in 2017. MITRAL VALVE The mitral valve is mildly thickened but opens well. There is no evidence of mitral valve prolapse. T here is no mitral valve stenosis. Doppler and Color-flow revealed moderate mitral regurgitation. TRICUSPID VALVE The tricuspid valve is normal in structure and function. Doppler and Color Flow revealed moderate tri cuspid regurgitation. The PA pressure was estimated at 42 mmHg. There is no tricuspid valve stenosis. PULMONIC VALVE The pulmonic valve is not well visualized. Doppler and Color Flow revealed trace to mild pulmonic leia vular regurgitation. There is no pulmonic valvular stenosis. GREAT VESSELS The aortic root is normal in size. The ascending aorta is normal in size. The IVC is dilated and darrel apses <50% with inspiration. PERICARDIAL EFFUSION There is no evidence of significant pericardial effusion. Critical Notification Critical Value: No <Conclusion> The Left Ventricle is borderline dilated. Left ventricle systolic function is mildly impaired. The Ejection Fraction is 40-45%. Apical motion consistent with pacemaker activation. There is global hypokinesis of the left ventricle. The right ventricle is mild to moderately dilated. There is a device lead in the right ventricle. A TAVR procedure was done on this patient in 2017. Calculated aortic valve area is 1.4 cm2 with maximum pressure gradient of 11 mmHg and mean pressure g radient of 6 mmHg. Doppler and Color Flow revealed no significant aortic regurgitation. Doppler and Color-flow revealed moderate mitral regurgitation. Doppler and Color Flow revealed moderate tricuspid regurgitation. The PA pressure was estimated at 42 mmHg. Signed by : Jorge L Aldrich MD Electronically Approved : 09/06/2018 16:10:40
[2018-09-06] MEDS: ENOXAPARIN 40 MG/0.4 ML SYRINGE. SQ SCH (17:00)
[2018-09-06] MEDS ORDERED: AMOX1TAB10 PO (17:01)
[2018-09-06] MEDS ORDERED: POTASSIUM CHLORIDE 20 MEQ TABLET.ER. PO ONE (17:45)
[2018-09-06 19:00] VITALS: BP 104/49
[2018-09-06] MEDS ORDERED: LACTOBACILLUS RHAMNOSUS GG 1 CAPSULE. PO SCH (21:00)
[2018-09-06] MEDS: INSULIN GLARGINE 300 UNITS/3 ML INSULN.PEN. SQ SCH (21:26)
[2018-09-06 23:00] VITALS: BP 119/53
--- NOTE | 2018-09-07 00:53 | CONS ---
DATE OF CONSULTATION: 09/06/2018 REQUESTING PHYSICIAN: Dr. Elena. REASON FOR CONSULTATION: Cellulitis. HISTORY OF PRESENT ILLNESS: This is an 82-year-old female, who was admitted with left leg redness, swelling, and some pain. The patient was diagnosed with cellulitis, started from the left big toe. The patient was put on Zosyn and consult has been requested. The patient denies any fever or chills. Denies any nausea, vomiting, diarrhea, chest pain, or shortness of breath. Denies any trauma, although she is not able to see and not much able to feel. PAST MEDICAL HISTORY: Positive for diabetes mellitus, hyperlipidemia, macular degeneration, history of breast cancer in the past, glaucoma, history of atrial fibrillation with cardioversion done as well as aortic stenosis. ALLERGIES: SHE IS LISTED ALLERGIC TO MULTIPLE MEDICATIONS. She does not remember what happens with what, but SHE HAS LISTED CIPRO, CLINDAMYCIN, AND DOXYCYCLINE ANTIBIOTIC ALLERGIES. SOCIAL HISTORY: Negative for smoking, alcohol, or illicit drug use. CURRENT MEDICATIONS: Reviewed. REVIEW OF SYSTEMS: As per HPI, all other systems reviewed are negative. PHYSICAL EXAMINATION: GENERAL: Alert, oriented female, not in distress. VITAL SIGNS: Stable, afebrile. HEENT: NAD. NECK: Supple, no JVP, no lymphadenopathy. LUNGS: Clear. HEART: S1, S2 regular. ABDOMEN: Benign. EXTREMITIES: Right lower extremity is unremarkable. Left lower extremity, on the plantar surface, there appears to have a cut on first metatarsophalangeal area and there is erythema starting from there, the foot, and going to the leg. NEUROLOGIC: The patient is alert, awake, and appropriate, although vision is very poor. LABORATORY DATA: White count is normal. Sed rate is 1. BUN and creatinine is 36 and 1.2. IMPRESSION: 1. Left lower extremity cellulitis. 2. Left big toe laceration with secondary infection. 3. Diabetes. 4. Hypertension. 5. Peripheral vascular disease. 6. Coronary artery disease. PLAN: Recommend change Zosyn to p.o. Augmentin. Leg elevation, supportive care. Discussed with Dr. Elena. Thank you very much, Dr. Elena, for giving me the opportunity to participate in this patient's care. TESS R. DWYER, MD DR: ELBA/desirae JOB#: [id number] / [id number]
[2018-09-07 03:00] VITALS: BP 114/50
[2018-09-07] MEDS: INSULIN LISPRO 300 UNITS/3 ML INSULN.PEN. SQ SCH (07:30)
--- NOTE | 2018-09-07 08:52 | NUR ---
Discharge Note: PRATIMA COLON Discharge instructions and discharge home medications reviewed with Patient and a copy given. All questions have been answered and understanding verbalized. Discontinued lines and drains: peripheral line. Patient discharged to Home or Self Care with Family Member via Wheelchair
== END 2018-09-07 09:00 | disposition home or self-care (01) | DRG 683 ==
LOC: 5 SOUTH 12:58 → 5 NORTH 09-06 14:23
PROVIDERS: ADMIT Family Medicine; ATTEND Family Medicine
DX: N17.9 Acute kidney failure, unspecified (principal); L03.116 Cellulitis of left lower limb; I50.22 Chronic systolic (congestive) heart failure; I13.0 Hypertensive heart and chronic kidney disease with heart failure and stage 1 through stage 4 chronic kidney disease, or unspecified chronic kidney disease; L97.529 Non-pressure chronic ulcer of other part of left foot with unspecified severity; E11.621 Type 2 diabetes mellitus with foot ulcer; L97.519 Non-pressure chronic ulcer of other part of right foot with unspecified severity; E11.51 Type 2 diabetes mellitus with diabetic peripheral angiopathy without gangrene; I25.10 Atherosclerotic heart disease of native coronary artery without angina pectoris; M47.812 Spondylosis without myelopathy or radiculopathy, cervical region; M19.90 Unspecified osteoarthritis, unspecified site; I11.0 Hypertensive heart disease with heart failure; S91.112A Laceration without foreign body of left great toe without damage to nail, initial encounter; E11.22 Type 2 diabetes mellitus with diabetic chronic kidney disease; N18.9 Chronic kidney disease, unspecified; E78.5 Hyperlipidemia, unspecified; R07.89 Other chest pain; H35.30 Unspecified macular degeneration; H40.9 Unspecified glaucoma; I35.0 Nonrheumatic aortic (valve) stenosis; I48.91 Unspecified atrial fibrillation; M48.061 Spinal stenosis, lumbar region without neurogenic claudication; Z83.3 Family history of diabetes mellitus; Z85.3 Personal history of malignant neoplasm of breast; F41.9 Anxiety disorder, unspecified; I45.9 Conduction disorder, unspecified; Z87.01 Personal history of pneumonia (recurrent); Z87.440 Personal history of urinary (tract) infections; Z88.6 Allergy status to analgesic agent; Z88.4 Allergy status to anesthetic agent; Z88.1 Allergy status to other antibiotic agents; Z88.8 Allergy status to other drugs, medicaments and biological substances; Z91.048 Other nonmedicinal substance allergy status
CPT/HCPCS: 36415; 71045; 73700; 80048; 80053; 80061; 82962; 83880; 84484; 84550; 85025; 85651; 93005; 93306; 93926; J1650; J1815; J2543

== ENCOUNTER → 2018-09-14 | Outpatient (CLI) | payer MEDICARE ==
[2018-09-07 03:00] VITALS: BP 114/50
[~2018-09-14] MED LIST changes: +AMOX1TAB10 PO; +DOCU-109 PO; +DOCU50LI12 PO; +LATA2.5D3 EACHEYE; +PHEN177S7 PO; +POLY17PO28 PEG
== END | disposition home or self-care (01) ==
LOC: PMGWOUND 11:15
PROVIDERS: ATTEND Preventive Medicine Undersea and Hyperbaric Medicine
DX: E11.621 Type 2 diabetes mellitus with foot ulcer (principal); L97.511 Non-pressure chronic ulcer of other part of right foot limited to breakdown of skin; L97.421 Non-pressure chronic ulcer of left heel and midfoot limited to breakdown of skin; E11.51 Type 2 diabetes mellitus with diabetic peripheral angiopathy without gangrene; E11.40 Type 2 diabetes mellitus with diabetic neuropathy, unspecified; E11.39 Type 2 diabetes mellitus with other diabetic ophthalmic complication; H40.9 Unspecified glaucoma; I13.0 Hypertensive heart and chronic kidney disease with heart failure and stage 1 through stage 4 chronic kidney disease, or unspecified chronic kidney disease; E11.22 Type 2 diabetes mellitus with diabetic chronic kidney disease; N18.9 Chronic kidney disease, unspecified; I50.22 Chronic systolic (congestive) heart failure; L84 Corns and callosities; E78.5 Hyperlipidemia, unspecified; I48.91 Unspecified atrial fibrillation; F41.9 Anxiety disorder, unspecified; H35.30 Unspecified macular degeneration; M19.90 Unspecified osteoarthritis, unspecified site; E78.00 Pure hypercholesterolemia, unspecified; I25.10 Atherosclerotic heart disease of native coronary artery without angina pectoris; E66.9 Obesity, unspecified; Z68.31 Body mass index [BMI] 31.0-31.9, adult; Z79.4 Long term (current) use of insulin; Z85.3 Personal history of malignant neoplasm of breast; Z90.49 Acquired absence of other specified parts of digestive tract
CPT/HCPCS: 99214; G0463

== ENCOUNTER → 2018-09-19 | Outpatient (CLI) | payer MEDICARE ==
[2018-09-07 03:00] VITALS: BP 114/50
[~2018-09-19] MED LIST changes: +REGADENOSON 0.4 MG/5 ML DISP.SYRIN. IV ONE
--- NOTE | 2018-09-19 14:42 | RAD ---
MR#: [id number] Date of Study: 09/19/2018 Ordering Physician: TOR HUYNH Referring Physician: RY MO Tech: JOÃO Vergara APPROVED REPORT Test Type: Pharmacological Stress Nurse/Tech: Vijaya Barrientos RN Test Indications: Dyspnea, CAD Cardiac History: Diabetes,2 stents, heart valve,CHF,breast cancer Medications: See Electronic Medical Record Medical History: See Electronic Medical Record Resting ECG: Paced rhythm Resting Heart Rate: 78 bpm Resting Blood Pressure: 115/56mmHg Pretest Chest Pain: No chest pain Nurse/Tech Notes S1,S2 with click present. Lungs are diminished throughout. Consent: The procedure was explained to the patient in lay terms. Informed consent was witnessed. Jamel eout was entered into [employer]. History and Stress Test performed by JOÃO Vergara Pharm. Details Pharmacologic stress testing was performed using 0.4mg per 5ml of regadenoson given intravenously ove r 7-10 seconds. Stress Symptoms Shortness of breath. POST EXERCISE Reason for Termination: Infusion complete Target HR: Yes Max HR: 160 bpm Max Blood Pressure: 125/61mmHg Blood Pressure response to exercise: Normal blood pressure response during stress. Heart Rate response to exercise: WNL Chest Pain: No. Arrhythmia: No. ST Change: No. INTERPRETATION Stress EKG Conclusion: The resting EKG shows an A sensed, V paced rhythm. The patient remains in a V paced rhythm throughout the exam. Imaging Protocol IMAGE PROTOCOL: Rest Tc-99m/stress Tc-99m 1 day Rest: Stress: Viability: Radiopharm.Tc99m [id number] Sestamibi Dose10.9mCi 32mCi Duration 16min. 13min. Img Date 09/19/2018 09/19/2018 Inj-Img [id number]. 60min. Rest Admin Site:IV - Right HandAdministrator:JOÃO Vergara Stress Admin Site: IV - Right HandAdministrator: DANY Hall, ARRT (R)(N) STRESS DATA End Diast. Vol.132.0mlLVEDV index BSA65.0ml End Syst. Vol.59.0mlLVESV index BSA29.0ml Myocardial Xhjw444.0gEject. Ivafwcwo89.0% Stress Scores Regional WT0.00Summed WT21.00 Regional WM0.00Summed WM16.00 LV Perfusion The stress scans show a mild inferior and a mild anterior septal defect. The rest scans show any mild inferior and a mild anterior septal defect. 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 Wall Motion Left ventricular systolic function is normal with an ejection fraction of 55%. LV Perf. Quant 17 Seg. SSS16.00 17 Seg. SRS4.00 17 Seg. SDS12.00 Stress Defect Extent (% LAD)24.40Rest Defect Extent (% LAD)18.80Rev. Defect Extent (% LAD)0.60 Stress Defect Extent (% LCX) 53.80Rest Defect Extent (% LCX)17.50Rev. Defect Extent (% LCX)45.00 Stress Defect Extent (% RCA)15.60Rest Defect Extent (% RCA)0.00Rev. Defect Extent (% RCA)15.60 Stress Defect Extent (% MARIAM)29.10Rest Defect Extent (% MARIAM)11.50Rev. Defect Extent (% MARIAM)16.10 Conclusion 1. The patient remains in a V paced rhythm throughout the study. 2. Nuclear imaging shows a previous infarct in the anterior septal region. 3. Nuclear imaging shows a previous infarct in the inferior region with mild trevin-infarction reversib le ischemia. 4. Left ventricular systolic function is intact with an ejection fraction of 55%. 5. Moderate to moderately low risk test most significant for intact LV systolic function and trevin-inf arct ischemia in the inferior wall. Signed by : Jorge L Aldrich MD Electronically Approved : 09/19/2018 14:41:17
== END | disposition home or self-care (01) ==
LOC: NM 09:12
PROVIDERS: ATTEND Internal Medicine Cardiovascular Disease
DX: I25.10 Atherosclerotic heart disease of native coronary artery without angina pectoris (principal)
CPT/HCPCS: 78452; 93017; 96374; A9500; J2785

== ENCOUNTER → 2018-09-28 | Outpatient (CLI) | payer MEDICARE ==
[2018-09-07 03:00] VITALS: BP 114/50
[~2018-09-28] MED LIST changes: -REGADENOSON 0.4 MG/5 ML DISP.SYRIN. IV ONE
== END | disposition home or self-care (01) ==
LOC: PMGWOUND 10:20
PROVIDERS: ATTEND Preventive Medicine Undersea and Hyperbaric Medicine
DX: E11.621 Type 2 diabetes mellitus with foot ulcer (principal); L97.421 Non-pressure chronic ulcer of left heel and midfoot limited to breakdown of skin; L97.511 Non-pressure chronic ulcer of other part of right foot limited to breakdown of skin; E11.36 Type 2 diabetes mellitus with diabetic cataract; E11.40 Type 2 diabetes mellitus with diabetic neuropathy, unspecified; E11.51 Type 2 diabetes mellitus with diabetic peripheral angiopathy without gangrene; E11.319 Type 2 diabetes mellitus with unspecified diabetic retinopathy without macular edema; E11.39 Type 2 diabetes mellitus with other diabetic ophthalmic complication; H40.9 Unspecified glaucoma; L84 Corns and callosities; I13.0 Hypertensive heart and chronic kidney disease with heart failure and stage 1 through stage 4 chronic kidney disease, or unspecified chronic kidney disease; E11.22 Type 2 diabetes mellitus with diabetic chronic kidney disease; N18.9 Chronic kidney disease, unspecified; I50.22 Chronic systolic (congestive) heart failure; H35.30 Unspecified macular degeneration; I25.10 Atherosclerotic heart disease of native coronary artery without angina pectoris; I50.9 Heart failure, unspecified; I48.91 Unspecified atrial fibrillation; E78.00 Pure hypercholesterolemia, unspecified; M19.90 Unspecified osteoarthritis, unspecified site; F41.9 Anxiety disorder, unspecified; E66.9 Obesity, unspecified; Z68.31 Body mass index [BMI] 31.0-31.9, adult; Z95.0 Presence of cardiac pacemaker; Z79.4 Long term (current) use of insulin; Z88.4 Allergy status to anesthetic agent; Z88.6 Allergy status to analgesic agent; Z88.1 Allergy status to other antibiotic agents; Z85.3 Personal history of malignant neoplasm of breast; Z95.5 Presence of coronary angioplasty implant and graft; Z90.49 Acquired absence of other specified parts of digestive tract; Z88.8 Allergy status to other drugs, medicaments and biological substances
CPT/HCPCS: 11042

== ENCOUNTER 2018-11-28 08:46 | Inpatient (IN) | payer MEDICARE ==
[~2018-11-28] VITALS: Ht 165.1 cm; Wt 79.4 kg
[~2018-11-28 08:46] MED LIST changes: -DOCU-109 PO; -DOCU50LI12 PO; -LATA2.5D3 EACHEYE; -PHEN177S7 PO; -POLY17PO28 PEG
--- NOTE | 2018-11-28 09:15 | PHYS DOC ---
Past Medical History Past Medical History: Arrhythmia, Bronchitis, CAD, Cancer, Diabetes-Type II, Glaucoma, Pneumonia Additional Past Medical Histor: DM neuropathy, degenerative disc disease, macular degeneration (CASSANDRA OAKLEY APRN) Past Surgical History: Appendectomy, Colectomy, Pacemaker, Other Additional Past Surgical Histo: L mastectomy, cardiac cath/stents x2, heart valve (CASSANDRA OAKLEY APRN) Alcohol Use: None Drug Use: None (CASSANDRA OAKLEY APRN) Adult General Chief Complaint Chief Complaint: [facility] HPI Patient is a 83 year old female who presents with a large hematoma to her right forehead after she fell through the night. The patient states that she did not lose consciousness. She states that she purposefully kept herself awake. She did have a skin tear to her right forearm as well as a small abrasion to her right knee. She is able to move all extremities. The patient does have macular degeneration and has decreased vision. She also has a pacemaker that was placed after a valve replacement. The patient was recently hospitalized at [facility] for her congestive heart failure. Her daughter states that the were able to take approximately 40 pounds of excess fluid off of her. The daughter is upset thinking that she is losing too much weight currently. (CASSANDRA OAKLEY APRN) Review of Systems Review of Systems Constitutional: Denies fever or chills [] Eyes: Denies change in visual acuity, redness, or eye pain [] HENT: Denies nasal congestion or sore throat [] Respiratory: Denies cough or shortness of breath [] Cardiovascular: No additional information not addressed in HPI [] GI: Denies abdominal pain, nausea, vomiting, bloody stools or diarrhea [] : Denies dysuria or hematuria [] Musculoskeletal: Denies back pain or joint pain [] Integument: See history of present illness Neurologic: See history of present illness Endocrine: Denies polyuria or polydipsia [] All other systems were reviewed and found to be within normal limits, except as documented in this note. (CASSANDRA OAKLEY APRN) Allergies Allergies Allergies Coded Allergies Type Severity Reaction Last Updated Verified iodine Allergy Severe Hives 01/23/18 Yes Vmyifiv-Djn-Ndi Reductase Inhibitor Allergy Intermediate 01/23/18 Yes clopidogrel Allergy Intermediate 01/23/18 Yes dobutamine Allergy Intermediate 01/22/18 Yes naproxen Allergy Intermediate 01/22/18 Yes prasugrel Allergy Intermediate 01/23/18 Yes fluticasone Allergy Unknown 07/20/18 Yes benzalkonium chloride Adverse Reaction Intermediate eye pain 01/23/18 Yes cefdinir Adverse Reaction Intermediate Nausea and Vomiting 01/19/18 Yes celecoxib Adverse Reaction Intermediate Nausea and Vomiting 01/19/18 Yes ciprofloxacin Adverse Reaction Intermediate Nausea and Vomiting 01/19/18 Yes clindamycin Adverse Reaction Intermediate Nausea and Vomiting 01/19/18 Yes cyclobenzaprine Adverse Reaction Intermediate Nausea and Vomiting 01/19/18 Yes dexamethasone Adverse Reaction Intermediate eye pain 01/23/18 Yes etodolac Adverse Reaction Intermediate Nausea and Vomiting 01/19/18 Yes gentamicin Adverse Reaction Intermediate eye pain and visioin changes (eye drops) 01/19/18 Yes hydrocodone Adverse Reaction Intermediate Nausea and Vomiting 01/19/18 Yes latanoprost Adverse Reaction Intermediate vision changes 01/19/18 Yes meloxicam Adverse Reaction Intermediate Nausea and Vomiting 01/19/18 Yes methocarbamol Adverse Reaction Intermediate Nausea and Vomiting 01/19/18 Yes omeprazole Adverse Reaction Intermediate nv 01/19/18 Yes oxycodone Adverse Reaction Intermediate SEVERE CONSTIPATION 01/19/18 Yes prednisone Adverse Reaction Intermediate Nausea and Vomiting 01/19/18 Yes ranitidine Adverse Reaction Intermediate Nausea and Vomiting 01/23/18 Yes timolol Adverse Reaction Intermediate vision changes 01/19/18 Yes travoprost Adverse Reaction Intermediate eye pain 01/23/18 Yes (MERT LANTIGUA MD) Physical Exam Physical Exam Constitutional: Well developed, well nourished, no acute distress, non-toxic appearance. [] HENT: Normocephalic, hematoma to the right forehead with ecchymosis extending in to her right eyelid, no tenderness to the orbit, bilateral external ears normal, oropharynx moist, no oral exudates, nose normal. [] Eyes: PERRLA, EOMI, conjunctiva normal, no discharge. [] Neck: Normal range of motion, no tenderness, supple, no stridor. [] Cardiovascular:Heart rate irregular rhythm, paced, no murmur [] Lungs & Thorax: Bilateral breath sounds clear to auscultation [] Abdomen: Bowel sounds normal, soft, no tenderness, no masses, no pulsatile masses. [] Skin: Skin tear to the right forearm, small abrasion to the right knee Back: No tenderness, no CVA tenderness. [] Extremities: No tenderness, no cyanosis, no clubbing, ROM intact, no edema. [] Neurologic: Alert and oriented X 3, normal motor function, normal sensory function, no focal deficits noted. [] Psychologic: Affect normal, judgement normal, mood normal. [] (CASSANDRA OAKLEY Arnav CEVALLOS) Current Patient Data Vital Signs Vital Signs Date Time Temp Pulse Resp B/P (MAP) Pulse Ox O2 Delivery O2 Flow Rate FiO2 11/28/18 10:55 68 11/28/18 10:05 14 93 11/28/18 08:46 97.0 111/59 (76) Room Air 97.0 (MERT LANTIGUA MD) Lab Values Laboratory Tests Test 11/28/18 09:15 11/28/18 10:25 11/28/18 10:35 White Blood Count 13.1 x10^3/uL (4.0-11.0) H Red Blood Count 6.08 x10^6/uL (3.50-5.40) H Hemoglobin 15.4 g/dL (12.0-15.5) Hematocrit 47.5 % (36.0-47.0) H Mean Corpuscular Volume 78 fL (79-100) L Mean Corpuscular Hemoglobin 25 pg (25-35) Mean Corpuscular Hemoglobin Concent 32 g/dL (31-37) Red Cell Distribution Width 19.9 % (11.5-14.5) H Platelet Count 206 x10^3/uL (140-400) Neutrophils (%) (Auto) 76 % (31-73) H Lymphocytes (%) (Auto) 14 % (24-48) L Monocytes (%) (Auto) 9 % (0-9) Eosinophils (%) (Auto) 0 % (0-3) Basophils (%) (Auto) 1 % (0-3) Neutrophils # (Auto) 10.0 x10^3uL (1.8-7.7) H Lymphocytes # (Auto) 1.8 x10^3/uL (1.0-4.8) Monocytes # (Auto) 1.2 x10^3/uL (0.0-1.1) H Eosinophils # (Auto) 0.0 x10^3/uL (0.0-0.7) Basophils # (Auto) 0.1 x10^3/uL (0.0-0.2) Sodium Level 125 mmol/L (136-145) L Potassium Level 2.5 mmol/L (3.5-5.1) *L Chloride Level 80 mmol/L (98-107) L Carbon Dioxide Level 42 mmol/L (21-32) H Anion Gap 3 (6-14) L Blood Urea Nitrogen 116 mg/dL (7-20) H Creatinine 1.7 mg/dL (0.6-1.0) H Estimated GFR (Cockcroft-Gault) 28.7 BUN/Creatinine Ratio 68 (6-20) H Glucose Level 284 mg/dL (70-99) H Calcium Level 10.1 mg/dL (8.5-10.1) Magnesium Level 2.8 mg/dL (1.8-2.4) H Total Bilirubin 1.4 mg/dL (0.2-1.0) H Aspartate Amino Transferase (AST) 61 U/L (15-37) H Alanine Aminotransferase (ALT) 41 U/L (14-59) Alkaline Phosphatase 160 U/L (46-116) H Creatine Kinase 170 U/L (26-192) AA-Chv-Y-Type Natriuretic Peptide 1839 pg/mL (0-449) H Total Protein 8.1 g/dL (6.4-8.2) Albumin 3.8 g/dL (3.4-5.0) Albumin/Globulin Ratio 0.9 (1.0-1.7) L Urine Collection Type Unknown Urine Color Yellow Urine Clarity Clear Urine pH 7.0 Urine Specific [place] 1.010 Urine Protein Negative mg/dL (NEG-TRACE) Urine Glucose (UA) Negative mg/dL (NEG) Urine Ketones (Stick) Negative mg/dL (NEG) Urine Blood Negative (NEG) Urine Nitrite Negative (NEG) Urine Bilirubin Negative (NEG) Urine Urobilinogen Dipstick 0.2 mg/dL (0.2 mg/dL) Urine Leukocyte Esterase Moderate (NEG) Urine RBC 0 /HPF (0-2) Urine WBC >40 /HPF (0-4) Urine Squamous Epithelial Cells Occ /LPF Urine Bacteria Moderate /HPF (0-FEW) Urine Hyaline Casts Moderate /HPF Laboratory Tests 11/28/18 09:15 Laboratory Tests 11/28/18 10:25 (MERT LANTIGUA MD) Lab Values Laboratory Tests Test 11/28/18 09:15 11/28/18 10:25 11/28/18 10:35 White Blood Count 13.1 x10^3/uL (4.0-11.0) H Red Blood Count 6.08 x10^6/uL (3.50-5.40) H Hemoglobin 15.4 g/dL (12.0-15.5) Hematocrit 47.5 % (36.0-47.0) H Mean Corpuscular Volume 78 fL (79-100) L Mean Corpuscular Hemoglobin 25 pg (25-35) Mean Corpuscular Hemoglobin Concent 32 g/dL (31-37) Red Cell Distribution Width 19.9 % (11.5-14.5) H Platelet Count 206 x10^3/uL (140-400) Neutrophils (%) (Auto) 76 % (31-73) H Lymphocytes (%) (Auto) 14 % (24-48) L Monocytes (%) (Auto) 9 % (0-9) Eosinophils (%) (Auto) 0 % (0-3) Basophils (%) (Auto) 1 % (0-3) Neutrophils # (Auto) 10.0 x10^3uL (1.8-7.7) H Lymphocytes # (Auto) 1.8 x10^3/uL (1.0-4.8) Monocytes # (Auto) 1.2 x10^3/uL (0.0-1.1) H Eosinophils # (Auto) 0.0 x10^3/uL (0.0-0.7) Basophils # (Auto) 0.1 x10^3/uL (0.0-0.2) Sodium Level 125 mmol/L (136-145) L Potassium Level 2.5 mmol/L (3.5-5.1) *L Chloride Level 80 mmol/L (98-107) L Carbon Dioxide Level 42 mmol/L (21-32) H Anion Gap 3 (6-14) L Blood Urea Nitrogen 116 mg/dL (7-20) H Creatinine 1.7 mg/dL (0.6-1.0) H Estimated GFR (Cockcroft-Gault) 28.7 BUN/Creatinine Ratio 68 (6-20) H Glucose Level 284 mg/dL (70-99) H Calcium Level 10.1 mg/dL (8.5-10.1) Total Bilirubin 1.4 mg/dL (0.2-1.0) H Aspartate Amino Transferase (AST) 61 U/L (15-37) H Alanine Aminotransferase (ALT) 41 U/L (14-59) Alkaline Phosphatase 160 U/L (46-116) H GC-Pmp-W-Type Natriuretic Peptide 1839 pg/mL (0-449) H Total Protein 8.1 g/dL (6.4-8.2) Albumin 3.8 g/dL (3.4-5.0) Albumin/Globulin Ratio 0.9 (1.0-1.7) L Urine Collection Type Unknown Urine Color Yellow Urine Clarity Clear Urine pH 7.0 Urine Specific [place] 1.010 Urine Protein Negative mg/dL (NEG-TRACE) Urine Glucose (UA) Negative mg/dL (NEG) Urine Ketones (Stick) Negative mg/dL (NEG) Urine Blood Negative (NEG) Urine Nitrite Negative (NEG) Urine Bilirubin Negative (NEG) Urine Urobilinogen Dipstick 0.2 mg/dL (0.2 mg/dL) Urine Leukocyte Esterase Moderate (NEG) Urine RBC 0 /HPF (0-2) Urine WBC >40 /HPF (0-4) Urine Squamous Epithelial Cells Occ /LPF Urine Bacteria Moderate /HPF (0-FEW) Urine Hyaline Casts Moderate /HPF Laboratory Tests 11/28/18 09:15 Laboratory Tests 11/28/18 10:25 (CASSANDRA OAKLEY APRN) EKG EKG [] (CASSANDRA OAKLEY APRN) Radiology/Procedures Radiology/Procedures [] PATIENT: PRATIMA COLON ACCOUNT: [id number] : 1935 LOCATION: ER AGE: 83 SEX: F EXAM STATUS: REG ER ORD. PHYSICIAN: CASSANDRA OAKLEY APRN REASON: fall last night, hematoma to right forehead, on aspirin PROCEDURE: CT HEAD AND CERVICAL SPINE WO CT of the head without contrast, 11/28/2018: HISTORY: Head trauma, patient on aspirin There is a moderate scalp hematoma in the right frontal region. No underlying fracture is evident. There is mild cerebral atrophy compatible with patient's age. The ventricles are within normal limits in size. There is no shift of the midline structures. There is no evidence of acute intracranial hemorrhage or mass effect. There is calcific plaquing of the distal internal carotid and vertebral arteries. IMPRESSION: No acute intracranial abnormality is detected. CT of the cervical spine without contrast, 11/28/2018: Moderate disc space narrowing and marginal spurring at multiple levels in the lower cervical spine. Additional moderate spurs are present in the upper cervical spine. There are moderate degenerative changes involving multiple facet joints bilaterally. There is a sclerotic bony fragment related to the right superior articular facet at C5 which is probably due to old trauma. No acute fracture or subluxation is seen. At C4-5 there is a moderate focal partially calcified disc protrusion at the midline producing mild central spinal stenosis. Moderate posterior marginal spurring at C5-6 is causing moderate central spinal stenosis as well as moderate bilateral foraminal narrowing at that level. The lower cervical disc margins are not clearly defined due to artifacts. There is mild to moderate central spinal stenosis and mild foraminal narrowing at C6-7. There is moderate calcific plaquing at both carotid bifurcations. IMPRESSION: 1. Moderate to severe multilevel degenerative change in the cervical spine as described above. 2. No acute bony abnormality is detected. PQRS Compliance Statement: One or more of the following individualized dose reduction techniques were utilized for this examination: 1. Automated exposure control 2. Adjustment of the mA and/or kV according to patient size 3. Use of iterative reconstruction technique Electronically signed by: Tariq Castaneda MD (11/28/2018 10:01 AM) [facility] (CASSANDRA OAKLEY APRN) Course & Med Decision Making Course & Med Decision Making Pertinent Labs and Imaging studies reviewed. (See chart for details) []The patient's BUN was found to be 116. She also has hypokalemia at 2.5. Dr. Elena was notified and she has been accepted to his service. The patient was given by mouth potassium in the emergency department for replacement. The patient is on a fluid restriction to 1500 mL per day for her congestive heart failure. The patient is compliant with this. (CASSANDRA OAKLEY APRN) Course & Med Decision Making Staff Physician Addendum: I was working in the ER during the course of this patient's visit. I was available for consultation as needed, but I was not directly involved in the care of this patient. (MERT LANTIGUA MD) Dragon Disclaimer Dragon Disclaimer This electronic medical record was generated, in whole or in part, using a voice recognition dictation system. (CASSANDRA OAKLEY APRN) Departure Departure Impression: Primary Impression: Weakness Additional Impressions: Hypokalemia Acute kidney injury Disposition: ADMITTED INPATIENT Admitting Physician: Wm Elena (CASSANDRA OAKLEY APRN) Condition: GOOD Referrals: WM ELENA MD (PCP) Problem Qualifiers CASSANDRA OAKLEY APRN November 28, 2018 09:15 MERT LANTIGUA MD November 29, 2018 18:21
[2018-11-28 09:52] LABS: BASO # 0.1 x10^3/uL (0.0-0.2); BASO % 1 % (0-3); EOS % 0 % (0-3); HEMATOCRIT 47.5 % (36.0-47.0); HEMOGLOBIN 15.4 g/dL (12.0-15.5); LYMPH # 1.8 x10^3/uL (1.0-4.8); LYMPH % 14 % (24-48); MEAN CORPUSCULAR HEMOGLOBIN 25 pg (25-35); MEAN CORPUSCULAR HGB CONC 32 g/dL (31-37); MEAN CORPUSCULAR VOLUME 78 fL (79-100); MONO # 1.2 x10^3/uL (0.0-1.1); MONO % 9 % (0-9); NEUT % 76 % (31-73); PLATELET COUNT 206 x10^3/uL (140-400); RED BLOOD COUNT 6.08 x10^6/uL (3.50-5.40); RED CELL DISTRIBUTION WIDTH 19.9 % (11.5-14.5); WHITE BLOOD COUNT 13.1 x10^3/uL (4.0-11.0)
--- NOTE | 2018-11-28 10:04 | RAD ---
CT of the head without contrast, 11/28/2018: HISTORY: Head trauma, patient on aspirin There is a moderate scalp hematoma in the right frontal region. No underlying fracture is evident. There is mild cerebral atrophy compatible with patient's age. The ventricles are within normal limits in size. There is no shift of the midline structures. There is no evidence of acute intracranial hemorrhage or mass effect. There is calcific plaquing of the distal internal carotid and vertebral arteries. IMPRESSION: No acute intracranial abnormality is detected. CT of the cervical spine without contrast, 11/28/2018: Moderate disc space narrowing and marginal spurring at multiple levels in the lower cervical spine. Additional moderate spurs are present in the upper cervical spine. There are moderate degenerative changes involving multiple facet joints bilaterally. There is a sclerotic bony fragment related to the right superior articular facet at C5 which is probably due to old trauma. No acute fracture or subluxation is seen. At C4-5 there is a moderate focal partially calcified disc protrusion at the midline producing mild central spinal stenosis. Moderate posterior marginal spurring at C5-6 is causing moderate central spinal stenosis as well as moderate bilateral foraminal narrowing at that level. The lower cervical disc margins are not clearly defined due to artifacts. There is mild to moderate central spinal stenosis and mild foraminal narrowing at C6-7. There is moderate calcific plaquing at both carotid bifurcations. IMPRESSION: 1. Moderate to severe multilevel degenerative change in the cervical spine as described above. 2. No acute bony abnormality is detected. PQRS Compliance Statement: One or more of the following individualized dose reduction techniques were utilized for this examination: 1. Automated exposure control 2. Adjustment of the mA and/or kV according to patient size 3. Use of iterative reconstruction technique Electronically signed by: Tariq Castaneda MD (11/28/2018 10:01 AM) [facility]
[2018-11-28 10:49] LABS: ALBUMIN 3.8 g/dL (3.4-5.0); ALBUMIN/GLOBULIN RATIO 0.9 (1.0-1.7); CALCIUM 10.1 mg/dL (8.5-10.1); CREATININE 1.7 mg/dL (0.6-1.0); GFR 28.7; TOTAL BILIRUBIN 1.4 mg/dL (0.2-1.0); TOTAL PROTEIN 8.1 g/dL (6.4-8.2)
[2018-11-28 10:52] LABS: POTASSIUM 2.5 mmol/L (3.5-5.1)
[2018-11-28 10:56] LABS: BILIRUBIN,URINE NEGATIVE (NEG); CLARITY,URINE CLEAR; COLOR,URINE YELLOW; NITRITE,URINE NEGATIVE (NEG); PROTEIN,URINE NEGATIVE (NEG-TRACE); UROBILINOGEN,URINE 0.2 mg/dL (0.2 mg/dL)
[2018-11-28 11:15] LABS: BACTERIA,URINE MODERATE /HPF (0-FEW); HYALINE CASTS, URINE MODERATE /HPF; RBC,URINE 0 /HPF (0-2); SQUAMOUS EPITHELIAL CELL,UR OCC /LPF; WBC,URINE >40 /HPF (0-4)
[2018-11-28] MEDS ORDERED: POTASSIUM CHLORIDE 20 MEQ TABLET.ER. PO ONE (11:30)
--- NOTE | 2018-11-28 12:53 | EKG ---
[facility] [address] [place] [address] Test Date: 2018-11-28 Test Time: 09:05:20 Pat Name: PRATIMA COLON Department: Room: [facility] Gender: F [employer]: : 1935 Requested By: CASSANDRA OAKLEY Order Number: [id number] Reading MD: Cory Rothman Measurements Intervals [place] Rate: 67 P: -167 VA: 168 QRS: -84 QRSD: 230 T: 97 QT: 508 QTc: 540 Interpretive Statements ATRIAL SENSED VENTRICULAR PACED RHYTHM Electronically Signed On 12-16-2018 12:53:08 CDT by Cory Rothman
--- NOTE | 2018-11-28 14:06 | NUR ---
Patient arrived on the 6th floor around 1230 from the ED with her daughter accompanying her. Patient was oriented to the room and the unit and made comfortable in her bed.
[2018-11-28] MEDS ORDERED: ACETAMINOPHEN 325 MG TABLET. PO PRN (14:30)
[2018-11-28 15:00] VITALS: BP 115/51
[2018-11-28] MEDS: ASPIRIN CHEWABLE 81 MG TABLET. PO SCH (15:00)
[2018-11-28] MEDS: MULTIVITAMIN with MINERAL TABLET. PO SCH (15:20)
[2018-11-28] MEDS: MAGNESIUM OXIDE 400 MG TABLET PO SCH (15:20)
[2018-11-28] MEDS: SMZ/TMP 800/160MG TABLET. PO SCH (15:20)
--- NOTE | 2018-11-28 15:23 | PDOC2 ---
NATALI JACOBS SENIOR ACCOUNTANT 11/28/18 1523: CARDIAC CONSULT DATE OF CONSULT Date of Consult DATE: 11/28/18 TIME: 15:03 REASON FOR CONSULT Reason for Consult: Valvular heart disease REFERRING PHYSICIAN Referring Physician: Kassy SOURCE Source: Chart review, Patient HISTORY OF PRESENT ILLNESS HISTORY OF PRESENT ILLNESS This is a pleasant 83 yo female admitted for complains of fall. Family particularly the daughter told me that her carpet fidel is filled with irregularities and she use a walker. Many times in the past they have been trying to convince the pt to at least live with her daughter but has been defiant in regards to moving. She also has been treated at [facility] recently for CHF and significantly got diuresed significantly and has lost significant amount of wt. She also has constipation issues to which she took several laxatives and had diarrhea the other day as a result. Yesterday morning she was witnessed by her son falling to the floor and sustained a laceration to her right forearm. He thought that the walker got stuck on the carpet and she has also been weak lately resulting to fall. There was no lost of consciousness. Again last night this happened she was walking and fell. There was no lost of consciousness accdg to her and no lapse in memory from being upright to falling on the floor. she sustained large forehead hematoma and right knee abrasion. There was not concussion nor lost of consciousness post fall. No associated SOA, chest pain nor palpitations. It is unclear if hypoglycemia is also a culprit as her blood sugar was not checked. Last night she crawled to her bed and slept and eventually this morning she was checked by her children and was brought in ED. She also has visual issues due to macular degeneration. PAST MEDICAL HISTORY Past Medical History Cardiovascular: AFIB (Past cardioversion), CAD, CHF, HTN, Hyperlipidemia, Aortic stenosis, Valve insufficiency Pulmonary: Pneumonia Heme/Onc: Cancer (breast) Psych: Anxiety Musculoskeletal: Osteoarthritis Rheumatologic: No pertinent hx Infectious disease: No pertinent hx ENT: Other (macular degeneration; glaucoma) Renal/: UTI Endocrine: Diabetes PAST SURGICAL HISTORY Past Surgical History Pacemaker (medtronic), Other (TAVR; left lumpectomy), PCI/stent to LAD FAMILY HISTORY Family History: Diabetes SOCIAL HISTORY Smoke: No ALCOHOL: none Drugs: None Lives: with Family CURRENT MEDICATIONS CURRENT MEDICATIONS Current Medications Medications (Trade) Dose Ordered Sig/Ashley Route PRN Reason Start Time Stop Time Status Last Admin Dose Admin Potassium Chloride (Klor-Con) 40 meq 1X ONCE PO 11/28/18 11:30 11/28/18 11:31 DC 11/28/18 11:31 ALLERGIES ALLERGIES: Coded Allergies: iodine (Verified Allergy, Severe, Hives, 01/23/18) Ccofzbn-Uul-Eft Reductase Inhibitor (Verified Allergy, Intermediate, 01/23/18) clopidogrel (Verified Allergy, Intermediate, 01/23/18) dobutamine (Verified Allergy, Intermediate, 01/22/18) naproxen (Verified Allergy, Intermediate, 01/22/18) prasugrel (Verified Allergy, Intermediate, 01/23/18) fluticasone (Verified Allergy, Unknown, 07/20/18) benzalkonium chloride (Verified Adverse Reaction, Intermediate, eye pain, 01/23/18) cefdinir (Verified Adverse Reaction, Intermediate, Nausea and Vomiting, 05/29) celecoxib (Verified Adverse Reaction, Intermediate, Nausea and Vomiting, 01/19/18) ciprofloxacin (Verified Adverse Reaction, Intermediate, Nausea and Vomiting, 01/19/18) clindamycin (Verified Adverse Reaction, Intermediate, Nausea and Vomiting, 01/19/18) cyclobenzaprine (Verified Adverse Reaction, Intermediate, Nausea and Vomiting, 01/19/18) dexamethasone (Verified Adverse Reaction, Intermediate, eye pain, 01/23/18) etodolac (Verified Adverse Reaction, Intermediate, Nausea and Vomiting, 01/19/18) gentamicin (Verified Adverse Reaction, Intermediate, eye pain and visioin changes (eye drops), 01/19/18) hydrocodone (Verified Adverse Reaction, Intermediate, Nausea and Vomiting, 01/19/18) DIARRHEA latanoprost (Verified Adverse Reaction, Intermediate, vision changes, 01/19/18) meloxicam (Verified Adverse Reaction, Intermediate, Nausea and Vomiting, 01/19/18) methocarbamol (Verified Adverse Reaction, Intermediate, Nausea and Vomiting, 01/19/18) omeprazole (Verified Adverse Reaction, Intermediate, nv, 01/19/18) oxycodone (Verified Adverse Reaction, Intermediate, SEVERE CONSTIPATION, 01/19/18) SEVERE CONSTIPATION prednisone (Verified Adverse Reaction, Intermediate, Nausea and Vomiting, 01/19/18) ranitidine (Verified Adverse Reaction, Intermediate, Nausea and Vomiting, 01/23/18) timolol (Verified Adverse Reaction, Intermediate, vision changes, 01/19/18) travoprost (Verified Adverse Reaction, Intermediate, eye pain, 01/23/18) ROS Review of System 14 point ROS evaluated with pertinent positives noted per HPI PHYSICAL EXAM General: Alert, Oriented X3, Cooperative, No acute distress HEENT: Mucous membr. moist/pink, Other (large right forehead hematoma) Heart: Regular rate Abdomen: Soft, No tenderness Extremities: No cyanosis, No edema Skin: No breakdown, No significant lesion, Other (RFA laceration, right knee abrasion) Neuro: Normal speech, Sensation intact Psych/Mental Status: Mental status NL, Mood NL MUSCULOSKELETAL: Osteoarthritic changes both hands VITALS VITALS Vital Signs Date Time Temp Pulse Resp B/P (MAP) Pulse Ox O2 Delivery O2 Flow Rate FiO2 11/28/18 11:35 66 95 11/28/18 10:05 14 11/28/18 08:46 97.0 111/59 (76) Room Air 97.0 LABS Lab: Laboratory Tests Test 11/28/18 09:15 11/28/18 10:25 11/28/18 10:35 White Blood Count 13.1 x10^3/uL (4.0-11.0) Red Blood Count 6.08 x10^6/uL (3.50-5.40) Hemoglobin 15.4 g/dL (12.0-15.5) Hematocrit 47.5 % (36.0-47.0) Mean Corpuscular Volume 78 fL (79-100) Mean Corpuscular Hemoglobin 25 pg (25-35) Mean Corpuscular Hemoglobin Concent 32 g/dL (31-37) Red Cell Distribution Width 19.9 % (11.5-14.5) Platelet Count 206 x10^3/uL (140-400) Neutrophils (%) (Auto) 76 % (31-73) Lymphocytes (%) (Auto) 14 % (24-48) Monocytes (%) (Auto) 9 % (0-9) Eosinophils (%) (Auto) 0 % (0-3) Basophils (%) (Auto) 1 % (0-3) Neutrophils # (Auto) 10.0 x10^3uL (1.8-7.7) Lymphocytes # (Auto) 1.8 x10^3/uL (1.0-4.8) Monocytes # (Auto) 1.2 x10^3/uL (0.0-1.1) Eosinophils # (Auto) 0.0 x10^3/uL (0.0-0.7) Basophils # (Auto) 0.1 x10^3/uL (0.0-0.2) Sodium Level 125 mmol/L (136-145) Potassium Level 2.5 mmol/L (3.5-5.1) Chloride Level 80 mmol/L (98-107) Carbon Dioxide Level 42 mmol/L (21-32) Anion Gap 3 (6-14) Blood Urea Nitrogen 116 mg/dL (7-20) Creatinine 1.7 mg/dL (0.6-1.0) Estimated GFR (Cockcroft-Gault) 28.7 BUN/Creatinine Ratio 68 (6-20) Glucose Level 284 mg/dL (70-99) Calcium Level 10.1 mg/dL (8.5-10.1) Total Bilirubin 1.4 mg/dL (0.2-1.0) Aspartate Amino Transf (AST/SGOT) 61 U/L (15-37) Alanine Aminotransferase (ALT/SGPT) 41 U/L (14-59) Alkaline Phosphatase 160 U/L (46-116) BA-Mui-A-Type Natriuretic Peptide 1839 pg/mL (0-449) Total Protein 8.1 g/dL (6.4-8.2) Albumin 3.8 g/dL (3.4-5.0) Albumin/Globulin Ratio 0.9 (1.0-1.7) Urine Collection Type Unknown Urine Color Yellow Urine Clarity Clear Urine pH 7.0 Urine Specific [place] 1.010 Urine Protein Negative mg/dL (NEG-TRACE) Urine Glucose (UA) Negative mg/dL (NEG) Urine Ketones (Stick) Negative mg/dL (NEG) Urine Blood Negative (NEG) Urine Nitrite Negative (NEG) Urine Bilirubin Negative (NEG) Urine Urobilinogen Dipstick 0.2 mg/dL (0.2 mg/dL) Urine Leukocyte Esterase Moderate (NEG) Urine RBC 0 /HPF (0-2) Urine WBC >40 /HPF (0-4) Urine Squamous Epithelial Cells Occ /LPF Urine Bacteria Moderate /HPF (0-FEW) Urine Hyaline Casts Moderate /HPF ECHOCARDIOGRAM ECHOCARDIOGRAM <Conclusion> The Left Ventricle is borderline dilated. Left ventricle systolic function is mildly impaired. The Ejection Fraction is 40-45%. Apical motion consistent with pacemaker activation. There is global hypokinesis of the left ventricle. The right ventricle is mild to moderately dilated. There is a device lead in the right ventricle. A TAVR procedure was done on this patient in 2017. Calculated aortic valve area is 1.4 cm2 with maximum pressure gradient of 11 mmHg and mean pressure gradient of 6 mmHg. Doppler and Color Flow revealed no significant aortic regurgitation. Doppler and Color-flow revealed moderate mitral regurgitation. Doppler and Color Flow revealed moderate tricuspid regurgitation. The PA pressure was estimated at 42 mmHg. DATE: 09/06/18 1610 STRESS TEST STRESS TEST Conclusion 1. The patient remains in a V paced rhythm throughout the study. 2. Nuclear imaging shows a previous infarct in the anterior septal region. 3. Nuclear imaging shows a previous infarct in the inferior region with mild trevin-infarction reversible ischemia. 4. Left ventricular systolic function is intact with an ejection fraction of 55%. 5. Moderate to moderately low risk test most significant for intact LV systolic function and trevin-infarct ischemia in the inferior wall. DATE: 09/19/18 1441 HEART CATH HEART CATH Conclusion Widely patent previously placed stent in the left anterior descending artery, chronic total occlusion involving the obtuse marginal branch of left circumflex artery that was described in prior cardiac catheterizations and 70% stenosis involving a medium caliber posterolateral branch of right coronary artery that was described in last cardiac catheterization as well. Recommendations Medical Therapy DATE: 01/25/18 1020 ASSESSMENT/PLAN ASSESSMENT/PLAN 1. Mechanical fall with multiple contusions: verbalized no lost of consciousness. No orthostasis 2. UTI/weakness 3. JAVI on CKD3: uremic, dehydration associated with diuretics, poor hydration, laxatives. 4. Hyponatremia/hypokalemia 5. Chronic diastolic/systolic CHF: compensated 6. S/P TAVR: 2017, recent TTE revealed moderate . 7. 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 8. 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 Medtronic. Currently V paced 9. PAFIB/flutter: V paced with artifact 10. HTN: controlled 11. DM2/HLP; could not rule out contributing hypoglycemia wwith insulin use. 12. Multiple allergies including antiplatelets and iodine Recommendations 1. Interrogate device 2. Hold diuretics. Pt does take benadryl prior to bumex and aldactone due to pruritus. She is also on zaroxylyn. 3. Hold ARB or ACEi. IV hydrate. Consider alternative to bactrim given her JAVI 4. Check CK, Mg, INR. 5. Limited TTE. K replacement 6. Consult nephrology 7. Continue coreg per BP trend. ASA. Poor candidate for shelter OAC/NOAC 8. High risk for falls with also macular degeneration, Consider [facility] TOR HUYNH MD 11/28/18 1730: CARDIAC CONSULT ASSESSMENT/PLAN ASSESSMENT/PLAN Patient seen and examined. Agree with CAR INSTALLATIONS SUPERVISOR's assessment and plan. Fall appears to be mechanical based on patient's and family's account She is clinically dehydrated and prerenal - agree with holding Lasix and intravenous hydration Recent 2-D echo showed LVEF 40-45% TAVR, CAD status clinically stable Device interrogation showed normal function Thank you for your consultation NATALI JACOBS APRN November 28, 2018 15:23 TOR HUYNH MD November 28, 2018 17:30
[2018-11-28 16:42] LABS: MAGNESIUM 2.8 mg/dL (1.8-2.4)
[2018-11-28] MEDS: INSULIN LISPRO 300 UNITS/3 ML INSULN.PEN. SQ SCH (17:19)
[2018-11-28 17:29] LABS: PROTHROMBIN TIME PATIENT 13.9 SEC (11.7-14.0)
[2018-11-28 19:30] VITALS: BP 99/56
[2018-11-28] MEDS: DORZOLAMIDE 2% OPHTH SOLUTION 10ML BOTTLE. OU SCH (20:44)
[2018-11-28] MEDS ORDERED: INSULIN GLARGINE 300 UNITS/3 ML INSULN.PEN. SQ SCH (21:00)
[2018-11-28 23:35] VITALS: BP 111/61
[2018-11-29 03:35] VITALS: BP 99/50
[2018-11-29 03:59] LABS: BASO # 0.1 x10^3/uL (0.0-0.2); BASO % 1 % (0-3); EOS # 0.1 x10^3/uL (0.0-0.7); EOS % 1 % (0-3); HEMATOCRIT 46.9 % (36.0-47.0); HEMOGLOBIN 15.3 g/dL (12.0-15.5); LYMPH # 1.9 x10^3/uL (1.0-4.8); LYMPH % 20 % (24-48); MEAN CORPUSCULAR HEMOGLOBIN 25 pg (25-35); MEAN CORPUSCULAR HGB CONC 33 g/dL (31-37); MEAN CORPUSCULAR VOLUME 78 fL (79-100); MONO # 1.1 x10^3/uL (0.0-1.1); MONO % 11 % (0-9); NEUT # 6.3 x10^3uL (1.8-7.7); NEUT % 67 % (31-73); PLATELET COUNT 196 x10^3/uL (140-400); RED BLOOD COUNT 6.02 x10^6/uL (3.50-5.40); RED CELL DISTRIBUTION WIDTH 20.2 % (11.5-14.5); WHITE BLOOD COUNT 9.3 x10^3/uL (4.0-11.0)
[2018-11-29 04:32] LABS: CALCIUM 9.3 mg/dL (8.5-10.1); CREATININE 1.4 mg/dL (0.6-1.0); GFR 35.9
[2018-11-29 04:49] LABS: POTASSIUM 2.2 mmol/L (3.5-5.1)
[2018-11-29 07:00] VITALS: BP 115/60
[2018-11-29] MEDS: PANTOPRAZOLE 40 MG TABLET.DR. PO SCH (08:24)
[2018-11-29] MEDS: DORZOLAMIDE 2% OPHTH SOLUTION 10ML BOTTLE. OU SCH ×2 (08:25→21:19)
[2018-11-29] MEDS: INSULIN LISPRO 300 UNITS/3 ML INSULN.PEN. SQ SCH ×3 (08:28→17:38)
[2018-11-29] MEDS: INSULIN GLARGINE 300 UNITS/3 ML INSULN.PEN. SQ SCH (08:29)
[2018-11-29] MEDS: ASPIRIN CHEWABLE 81 MG TABLET. PO SCH (08:33)
[2018-11-29] MEDS: MAGNESIUM OXIDE 400 MG TABLET PO SCH (08:34)
[2018-11-29] MEDS: MULTIVITAMIN with MINERAL TABLET. PO SCH (08:34)
[2018-11-29] MEDS: SMZ/TMP 800/160MG TABLET. PO SCH (08:34)
[2018-11-29] MEDS ORDERED: TIMOLOL OU SCH (09:00)
--- NOTE | 2018-11-29 09:47 | HP ---
ADMIT DATE: 11/28/2018 ADDENDUM PLAN: Proceed with gentle hydration, proceed with potassium supplementation. Consult Cardiology for further evaluation. Proceed with PT and OT modalities. Treat sepsis with p.o. antibiotics at this time due to multiple allergies. Continue to follow the patient's physical status and proceed with fdc when stable. DE RANGEL MD DR: GOYO/desirae JOB#: [id number] / [id number]
--- NOTE | 2018-11-29 09:47 | HP ---
ADMIT DATE: 11/28/2018 CHIEF COMPLAINT: Multiple falls. HISTORY OF PRESENT ILLNESS AND HOSPITAL COURSE: This is an 83-year-old female with known history of significant spinal stenosis and arthritis as well as congestive heart failure due to valvular heart disease, has been noted by family to have fallen, thinking that she had tripped with her walker. She did hit her head. Initially, the patient was not taken to the ER, but on followup and second fall the patient was brought to the ER by family. There she was found to have a UTI as well as significant dehydration with BUN of 116 and creatinine of 1.7. She did sustain a hematoma above her right eye, but had no evidence of loss of consciousness or concussion. The patient did have a slightly elevated white count at 13.1. She also had significant hyponatremia with a sodium of 125 and hypokalemia with a potassium of 2.5. Due to these multiple findings, she was admitted for hydration, PT, OT modalities, antibiotic treatment and Cardiology consultation. PAST MEDICAL HISTORY: Significant for: 1. Type 2 diabetes. 2. Coronary artery disease. 3. Aortic stenosis, status post TAVR. 4. Atrial fibrillation, status post cardioversion. 5. Osteoarthritis with spinal stenosis of L-spine and C-spine. 6. Macular degeneration. 7. Hyperlipidemia. 8. Remote history of breast cancer. 9. Recent hospitalization for congestive heart failure. 10. Sick sinus syndrome with pacer. PAST SURGICAL HISTORY: Significant for: 1. Pacemaker placement after complete heart block immediately post TAVR procedure. 2. TAVR. 3. Left lumpectomy. 4. Stent to LAD. 5. Cholecystectomy. 6. Laminectomy L2 and L3. FAMILY HISTORY: Mother with arthritis. Father with complications of diabetes. She had a brother who is with complications of diabetes. SOCIAL HISTORY: The patient lives with support from her daughter who works and a son who is on disability at home 24 hours a day. The patient has never smoked. She has never used alcohol. ALLERGIES: THE PATIENT HAS MULTIPLE ALLERGIES LISTED WITH NO REACTIONS LISTED. ALLERGIES INCLUDE PLAVIX, EFFIENT, IODINE, NAPROSYN, WHICH CAUSES UPSET STOMACH; ZANTAC, MELOXICAM, AGAIN UPSET STOMACH; OMEPRAZOLE, CIPROFLOXACIN, FLEXERIL, CONTRAST DYE, STATIN MEDICATIONS, CLINDAMYCIN, METHOCARBAMOL, DOBUTAMINE CAUSING CHEST PAIN, PROAIR CAUSING THROAT ITCHING, CODEINE, ZANAFLEX, ELIQUIS CAUSING THROAT SWELLING, DOXYCYCLINE. REVIEW OF SYSTEMS: The patient has had a significant weight loss, had recent hospitalization at [facility], losing almost 40 pounds. PHYSICAL EXAMINATION: GENERAL: This is a frail-appearing female, in no apparent distress with ecchymosis above her right eye. She is alert and oriented. HEENT: Benign. NECK: Supple. CARDIAC: Regular rate and rhythm. LUNGS: Clear. ABDOMEN: Soft and nontender. EXTREMITIES: No edema. NEUROLOGIC: Showed no unilateral findings. ASSESSMENT: 1. Mechanical fall with contusion. 2. Acute renal failure with baseline creatinine of 0.85 up to 1.7 and baseline BUN of 19 up to 116. 3. Hyponatremia. 4. Hypokalemia. 5. Urinary tract infection. 6. Suspected sepsis. 7. Debilitation. PLAN: To proceed with PT, OT modalities. Proceed DE RANGEL MD DR: GOYO/desirae JOB#: [id number] / [id number]
[2018-11-29 11:00] VITALS: BP 100/42
--- NOTE | 2018-11-29 12:27 | HP ---
ADMIT DATE: 11/28/2018 CHIEF COMPLAINT: Multiple falls. HISTORY OF PRESENT ILLNESS AND HOSPITAL COURSE: This is an 83-year-old female with known history of significant spinal stenosis and arthritis as well as congestive heart failure due to valvular heart disease, has been noted by family to have fallen, thinking that she had tripped with her walker. She did hit her head. Initially, the patient was not taken to the ER, but on followup and second fall the patient was brought to the ER by family. There she was found to have a UTI as well as significant dehydration with BUN of 116 and creatinine of 1.7. She did sustain a hematoma above her right eye, but had no evidence of loss of consciousness or concussion. The patient did have a slightly elevated white count at 13.1. She also had significant hyponatremia with a sodium of 125 and hypokalemia with a potassium of 2.5. Due to these multiple findings, she was admitted for hydration, PT, OT modalities, antibiotic treatment and Cardiology consultation. PAST MEDICAL HISTORY: Significant for: 1. Type 2 diabetes. 2. Coronary artery disease. 3. Aortic stenosis, status post TAVR. 4. Atrial fibrillation, status post cardioversion. 5. Osteoarthritis with spinal stenosis of L-spine and C-spine. 6. Macular degeneration. 7. Hyperlipidemia. 8. Remote history of breast cancer. 9. Recent hospitalization for congestive heart failure. 10. Sick sinus syndrome with pacer. PAST SURGICAL HISTORY: Significant for: 1. Pacemaker placement after complete heart block immediately post TAVR procedure. 2. TAVR. 3. Left lumpectomy. 4. Stent to LAD. 5. Cholecystectomy. 6. Laminectomy L2 and L3. FAMILY HISTORY: Mother with arthritis. Father with complications of diabetes. She had a brother who is with complications of diabetes. SOCIAL HISTORY: The patient lives with support from her daughter who works and a son who is on disability at home 24 hours a day. The patient has never smoked. She has never used alcohol. ALLERGIES: THE PATIENT HAS MULTIPLE ALLERGIES LISTED WITH NO REACTIONS LISTED. ALLERGIES INCLUDE PLAVIX, EFFIENT, IODINE, NAPROSYN, WHICH CAUSES UPSET STOMACH; ZANTAC, MELOXICAM, AGAIN UPSET STOMACH; OMEPRAZOLE, CIPROFLOXACIN, FLEXERIL, CONTRAST DYE, STATIN MEDICATIONS, CLINDAMYCIN, METHOCARBAMOL, DOBUTAMINE CAUSING CHEST PAIN, PROAIR CAUSING THROAT ITCHING, CODEINE, ZANAFLEX, ELIQUIS CAUSING THROAT SWELLING, DOXYCYCLINE. REVIEW OF SYSTEMS: The patient has had a significant weight loss, had recent hospitalization at [facility], losing almost 40 pounds. PHYSICAL EXAMINATION: GENERAL: This is a frail-appearing female, in no apparent distress with ecchymosis above her right eye. She is alert and oriented. HEENT: Benign. NECK: Supple. CARDIAC: Regular rate and rhythm. LUNGS: Clear. ABDOMEN: Soft and nontender. EXTREMITIES: No edema. NEUROLOGIC: Showed no unilateral findings. ASSESSMENT: 1. Mechanical fall with contusion. 2. Acute renal failure with baseline creatinine of 0.85 up to 1.7 and baseline BUN of 19 up to 116. 3. Hyponatremia. 4. Hypokalemia. 5. Urinary tract infection. 6. Suspected sepsis. 7. Debilitation. PLAN: Proceed with gentle hydration, proceed with potassium supplementation. Consult Cardiology for further evaluation. Proceed with PT and OT modalities. Treat sepsis with p.o. antibiotics at this time due to multiple allergies. Continue to follow the patient's physical status and proceed with assisted when stable. DE RANGEL MD DR: GOYO/desirae JOB#: [id number] / [id number]
[2018-11-29] MEDS ORDERED: POTASSIUM CHLORIDE 20 MEQ TABLET.ER. PO ONE (12:30)
[2018-11-29] MEDS ORDERED: POTASSIUM CHLORIDE 20 MEQ/15 ML ORAL LIQUID. PO ONE (13:00)
--- NOTE | 2018-11-29 13:04 | PDOC ---
PROGRESS NOTES Subjective Subjective Patient c/o right arm pain but cannot tolerate pain meds. Patient having issues with swallowing will change k+ and antibx to liquid. c/o constipation as well. K+ down despite supplement. Objective Objective Vital Signs Date Time Temp Pulse Resp B/P (MAP) Pulse Ox O2 Delivery O2 Flow Rate FiO2 11/29/18 11:00 96.5 66 18 100/42 (61) Room Air 91.0 96.5 11/29/18 07:00 95 Intake and Output 11/29/18 06:59 Intake Total 2580 ml Output Total 300 ml Balance 2280 ml Intake Oral 1580 ml IV Total 1000 ml Output Urine Total 300 ml # Voids 10 Physical Exam Abdomen: Normal bowel sounds Heart: Regular rate Extremities: No edema General: Alert Lungs: Clear to auscultation Assessment Assessment Problems Medical Problems: (1) Acute kidney injury Status: Acute 1. Mechanical fall with contusion. 2. Acute renal failure with baseline creatinine of 0.85 up to 1.7 and baseline BUN of 19 up to 116. 3. Hyponatremia. 4. Hypokalemia. 5. Urinary tract infection. 6. Suspected sepsis. 7. Debilitation. 8. Constipation 9. Dysphasia Plan Plan of Care Increased hydration increase K+ supplementation continue card care consult renal med PT/OT as tolerated speech eval follow labs miralax and Colace daily Comment Review of Relevant I have reviewed the following items vito (where applicable) has been applied. Labs Laboratory Tests Test 11/28/18 09:15 11/28/18 10:25 11/28/18 10:35 11/28/18 16:20 White Blood Count 13.1 x10^3/uL (4.0-11.0) Red Blood Count 6.08 x10^6/uL (3.50-5.40) Hemoglobin 15.4 g/dL (12.0-15.5) Hematocrit 47.5 % (36.0-47.0) Mean Corpuscular Volume 78 fL (79-100) Mean Corpuscular Hemoglobin 25 pg (25-35) Mean Corpuscular Hemoglobin Concent 32 g/dL (31-37) Red Cell Distribution Width 19.9 % (11.5-14.5) Platelet Count 206 x10^3/uL (140-400) Neutrophils (%) (Auto) 76 % (31-73) Lymphocytes (%) (Auto) 14 % (24-48) Monocytes (%) (Auto) 9 % (0-9) Eosinophils (%) (Auto) 0 % (0-3) Basophils (%) (Auto) 1 % (0-3) Neutrophils # (Auto) 10.0 x10^3uL (1.8-7.7) Lymphocytes # (Auto) 1.8 x10^3/uL (1.0-4.8) Monocytes # (Auto) 1.2 x10^3/uL (0.0-1.1) Eosinophils # (Auto) 0.0 x10^3/uL (0.0-0.7) Basophils # (Auto) 0.1 x10^3/uL (0.0-0.2) Sodium Level 125 mmol/L (136-145) Potassium Level 2.5 mmol/L (3.5-5.1) Chloride Level 80 mmol/L (98-107) Carbon Dioxide Level 42 mmol/L (21-32) Anion Gap 3 (6-14) Blood Urea Nitrogen 116 mg/dL (7-20) Creatinine 1.7 mg/dL (0.6-1.0) Estimated GFR (Cockcroft-Gault) 28.7 BUN/Creatinine Ratio 68 (6-20) Glucose Level 284 mg/dL (70-99) Calcium Level 10.1 mg/dL (8.5-10.1) Magnesium Level 2.8 mg/dL (1.8-2.4) Total Bilirubin 1.4 mg/dL (0.2-1.0) Aspartate Amino Transf (AST/SGOT) 61 U/L (15-37) Alanine Aminotransferase (ALT/SGPT) 41 U/L (14-59) Alkaline Phosphatase 160 U/L (46-116) Creatine Kinase 170 U/L (26-192) WU-Pwb-F-Type Natriuretic Peptide 1839 pg/mL (0-449) Total Protein 8.1 g/dL (6.4-8.2) Albumin 3.8 g/dL (3.4-5.0) Albumin/Globulin Ratio 0.9 (1.0-1.7) Urine Collection Type Unknown Urine Color Yellow Urine Clarity Clear Urine pH 7.0 Urine Specific [place] 1.010 Urine Protein Negative mg/dL (NEG-TRACE) Urine Glucose (UA) Negative mg/dL (NEG) Urine Ketones (Stick) Negative mg/dL (NEG) Urine Blood Negative (NEG) Urine Nitrite Negative (NEG) Urine Bilirubin Negative (NEG) Urine Urobilinogen Dipstick 0.2 mg/dL (0.2 mg/dL) Urine Leukocyte Esterase Moderate (NEG) Urine RBC 0 /HPF (0-2) Urine WBC >40 /HPF (0-4) Urine Squamous Epithelial Cells Occ /LPF Urine Bacteria Moderate /HPF (0-FEW) Urine Hyaline Casts Moderate /HPF Glucose (Fingerstick) 219 mg/dL (70-99) Test 11/28/18 16:50 11/28/18 20:49 11/29/18 02:55 11/29/18 07:25 Prothrombin Time 13.9 SEC (11.7-14.0) Prothromb Time International Ratio 1.1 (0.8-1.1) Glucose (Fingerstick) 348 mg/dL (70-99) 149 mg/dL (70-99) White Blood Count 9.3 x10^3/uL (4.0-11.0) Red Blood Count 6.02 x10^6/uL (3.50-5.40) Hemoglobin 15.3 g/dL (12.0-15.5) Hematocrit 46.9 % (36.0-47.0) Mean Corpuscular Volume 78 fL (79-100) Mean Corpuscular Hemoglobin 25 pg (25-35) Mean Corpuscular Hemoglobin Concent 33 g/dL (31-37) Red Cell Distribution Width 20.2 % (11.5-14.5) Platelet Count 196 x10^3/uL (140-400) Neutrophils (%) (Auto) 67 % (31-73) Lymphocytes (%) (Auto) 20 % (24-48) Monocytes (%) (Auto) 11 % (0-9) Eosinophils (%) (Auto) 1 % (0-3) Basophils (%) (Auto) 1 % (0-3) Neutrophils # (Auto) 6.3 x10^3uL (1.8-7.7) Lymphocytes # (Auto) 1.9 x10^3/uL (1.0-4.8) Monocytes # (Auto) 1.1 x10^3/uL (0.0-1.1) Eosinophils # (Auto) 0.1 x10^3/uL (0.0-0.7) Basophils # (Auto) 0.1 x10^3/uL (0.0-0.2) Sodium Level 127 mmol/L (136-145) Potassium Level 2.2 mmol/L (3.5-5.1) Chloride Level 83 mmol/L (98-107) Carbon Dioxide Level 36 mmol/L (21-32) Anion Gap 8 (6-14) Blood Urea Nitrogen 99 mg/dL (7-20) Creatinine 1.4 mg/dL (0.6-1.0) Estimated GFR (Cockcroft-Gault) 35.9 Glucose Level 208 mg/dL (70-99) Calcium Level 9.3 mg/dL (8.5-10.1) Test 11/29/18 12:21 Glucose (Fingerstick) 185 mg/dL (70-99) Laboratory Tests Test 11/28/18 16:20 11/28/18 16:50 11/28/18 20:49 11/29/18 02:55 Glucose (Fingerstick) 219 mg/dL (70-99) 348 mg/dL (70-99) Prothrombin Time 13.9 SEC (11.7-14.0) Prothromb Time International Ratio 1.1 (0.8-1.1) White Blood Count 9.3 x10^3/uL (4.0-11.0) Red Blood Count 6.02 x10^6/uL (3.50-5.40) Hemoglobin 15.3 g/dL (12.0-15.5) Hematocrit 46.9 % (36.0-47.0) Mean Corpuscular Volume 78 fL (79-100) Mean Corpuscular Hemoglobin 25 pg (25-35) Mean Corpuscular Hemoglobin Concent 33 g/dL (31-37) Red Cell Distribution Width 20.2 % (11.5-14.5) Platelet Count 196 x10^3/uL (140-400) Neutrophils (%) (Auto) 67 % (31-73) Lymphocytes (%) (Auto) 20 % (24-48) Monocytes (%) (Auto) 11 % (0-9) Eosinophils (%) (Auto) 1 % (0-3) Basophils (%) (Auto) 1 % (0-3) Neutrophils # (Auto) 6.3 x10^3uL (1.8-7.7) Lymphocytes # (Auto) 1.9 x10^3/uL (1.0-4.8) Monocytes # (Auto) 1.1 x10^3/uL (0.0-1.1) Eosinophils # (Auto) 0.1 x10^3/uL (0.0-0.7) Basophils # (Auto) 0.1 x10^3/uL (0.0-0.2) Sodium Level 127 mmol/L (136-145) Potassium Level 2.2 mmol/L (3.5-5.1) Chloride Level 83 mmol/L (98-107) Carbon Dioxide Level 36 mmol/L (21-32) Anion Gap 8 (6-14) Blood Urea Nitrogen 99 mg/dL (7-20) Creatinine 1.4 mg/dL (0.6-1.0) Estimated GFR (Cockcroft-Gault) 35.9 Glucose Level 208 mg/dL (70-99) Calcium Level 9.3 mg/dL (8.5-10.1) Test 11/29/18 07:25 11/29/18 12:21 Glucose (Fingerstick) 149 mg/dL (70-99) 185 mg/dL (70-99) Medications Current Medications Potassium Chloride (Klor-Con) 40 meq 1X ONCE PO Last administered on 11/28/18at 11:31; Start 11/28/18 at 11:30; Stop 11/28/18 at 11:31; Status DC Aspirin (Children'S Aspirin) 81 mg DAILY PO Last administered on 11/29/18at 08:33; Start 11/28/18 at 15:00 Dorzolamide HCl (Trusopt) 1 drop BID OU Last administered on 11/29/18at 08:25; Start 11/28/18 at 21:00 Insulin Human Lispro (HumaLOG) 5 units TIDWMEALS SQ Last administered on 11/29/18at 08:28; Start 11/28/18 at 17:00 Magnesium Oxide (Magnesium Oxide) 400 mg DAILY PO Last administered on 11/29/18at 08:34; Start 11/28/18 at 15:00 Multivitamins (Thera M Plus) 1 tab DAILY PO Last administered on 11/29/18at 08:34; Start 11/28/18 at 15:00 Insulin Glargine (Lantus) 5 units QHS SQ Last administered on 11/28/18at 20:52; Start 11/28/18 at 21:00; Stop 11/29/18 at 12:51; Status DC Insulin Glargine (Lantus) 25 units DAILY SQ Last administered on 11/29/18at 08:29; Start 11/29/18 at 09:00 Non-Formulary Medication (Timolol (Betimol)) 1 drop DAILY OU ; Start 11/29/18 at 09:00; Status UNV Pantoprazole Sodium (Protonix) 40 mg DAILYAC PO Last administered on 11/29/18at 08:24; Start 11/29/18 at 07:30 Potassium Chloride/Sodium Chloride 1,000 ml @ 125 mls/hr Q8H IV Last administered on 11/29/18at 02:32; Start 11/28/18 at 14:28 Acetaminophen (Tylenol) 650 mg PRN Q6HRS PRN PO Headaches, Temp > 101.5F; Start 11/28/18 at 14:30 Trimethoprim/ Sulfamethoxazole (Bactrim Ds) 1 tab DAILY PO Last administered on 11/29/18at 08:34; Start 11/28/18 at 15:00; Stop 11/29/18 at 12:51; Status DC Potassium Chloride (Klor-Con) 40 meq 1X ONCE PO ; Start 11/29/18 at 12:30; Stop 11/29/18 at 12:51; Status DC Potassium Chloride (Klor-Con) 20 meq DAILYWBKFT PO ; Start 11/30/18 at 08:00; Stop 11/30/18 at 08:00; Status DC Potassium Chloride (KCl Oral Soln) 40 meq 1X ONCE PO ; Start 11/29/18 at 13:00; Stop 11/29/18 at 13:01; Status UNV Potassium Chloride (KCl Oral Soln) 20 meq BID PO ; Start 11/29/18 at 21:00; Status UNV Trimethoprim/ Sulfamethoxazole (Bactrim Oral Susp) 15 ml BID PEG ; Start 11/29/18 at 21:00; Status UNV Active Scripts Active Mag-Oxide (Magnesium Oxide) 400 Mg Tablet 400 Mg PO DAILY 30 Days Furosemide 20 Mg Tablet 20 Mg PO DAILY 30 Days Reported [Pantoprazole] 40 Mg PO DAILY Novolin R (Insulin Regular, Human) 100 Unit/1 Ml Vial 5 Unit IJ SUPPER TIME Novolin N (Nph, Human Insulin Isophane) 100 Unit/1 Ml Vial 5 Unit SQ HS Novolin N (Nph, Human Insulin Isophane) 100 Unit/1 Ml Vial 25 Unit SQ EVERY A.M. Centrum Complete Multivit Tab (Multivitamin/Iron/Folic Acid) 1 Each Tablet 1 Each PO DAILY LAST DOSE GIVEN: DATE:04/15/16 TIME:9:00 a.m. NEXT DOSE DUE: DATE:04/16/16 TIME:9:00 a.m. Aspirin 81 Mg Tab.chew 81 Mg PO DAILY continue home schedule Dorzolamide Hcl 10 Ml Drops 1 Drop OU BID LAST DOSE GIVEN: DATE:04/15/16 TIME:9:00 p.m. NEXT DOSE DUE: DATE:04/15/16 TIME:9:00 p.m. Betimol (Timolol) 5 Ml Drops 1 Drop OU DAILY Vitals/I & O Vital Sign - Last 24 Hours 11/28/18 11/28/18 11/28/18 11/28/18 15:00 18:33 19:30 20:00 Temp 98.0 97.6 98.0 97.6 Pulse 61 78 Resp 18 16 B/P (MAP) 115/51 (72) 99/56 (70) Pulse Ox 98 97 O2 Delivery Room Air Room Air Room Air Room Air 11/28/18 11/29/18 11/29/18 11/29/18 23:35 03:35 07:00 11:00 Temp 97.4 98.0 97.3 96.5 97.4 98.0 97.3 96.5 Pulse 72 74 78 66 Resp 16 18 16 18 B/P (MAP) 111/61 (78) 99/50 (66) 115/60 (78) 100/42 (61) Pulse Ox 96 97 95 O2 Delivery Room Air Room Air Room Air Room Air O2 Flow Rate 91.0 l Intake and Output 11/28/18 11/28/18 11/29/18 14:59 22:59 06:59 Intake Total 1100 ml 1480 ml Output Total 150 ml 0 ml 150 ml Balance -150 ml 1100 ml 1330 ml Nutrition Consultation Dietary Evaluation: Recommendations by RD: Increase Calorie Intake, Protein supplementation Comments: shyanne bid mvi Expected Outcomes/Goals: to meet > 75% est nutr needs Interpretation of weight loss: >5% in 1 month Malnutrition Findings: Body Fat Depletion (Non Severe: Mild Depletion Weight Status: Appropriate DE RANGEL MD November 29, 2018 13:04
--- NOTE | 2018-11-29 13:20 | PDOC2 ---
CONSULT Date of Consult Date of Consult DATE: 11/29/18 TIME: 13:16 Reason for Consult Reason for Consult: Hyponatremia and ARF Identification/Chief Complaint Chief Complaint "I m not feeling very good" Source Source: Chart review, Patient History of Present Illness Reason for Visit: Pt is not a good Historian, no family at bedside Hx Obtained from Chart review and RN Pt is a 83 yo female admitted for complains of fall, likely tripping with walker and uneven carpeting at home She was recently at [facility] for CHF and got diuresed and has lost significant amount of wt. She has chronic constipation issues, took several laxatives and had diarrhea She had a recent fall witnessed by her son and sustained a laceration to her right forearm. He thought that the walker got stuck on the carpet There was no lost of consciousness and happened 2 nd time she was walking and fell. She sustained large forehead hematoma and right knee abrasion. No associated SOA, chest pain nor palpitations. She also has visual issues due to macular degeneration. Currently she states she is not feeling well. Doesn't report any specific complaints. States was at [facility] maybe 1-2 months back Denies any Urinary complaints , doesn't know her home med list Past Medical History Cardiovascular: AFIB, CAD, CHF, HTN, Hyperlipidemia, Aortic stenosis, Valve insufficiency Pulmonary: Pneumonia Heme/Onc: Cancer Psych: Anxiety Musculoskeletal: Osteoarthritis Rheumatologic: No pertinent hx Infectious disease: No pertinent hx Renal/: UTI Endocrine: Diabetes Past Surgical History Past Surgical History: Pacemaker, Other Family History Family History: Diabetes Social History No ALCOHOL: none Drugs: None Lives: with Family Current Problem List Problem List Problems Medical Problems: (1) Acute kidney injury Status: Acute Current Medications Current Medications Current Medications Potassium Chloride (Klor-Con) 40 meq 1X ONCE PO Last administered on 11/28/18at 11:31; Start 11/28/18 at 11:30; Stop 11/28/18 at 11:31; Status DC Aspirin (Children'S Aspirin) 81 mg DAILY PO Last administered on 11/29/18at 08:33; Start 11/28/18 at 15:00 Dorzolamide HCl (Trusopt) 1 drop BID OU Last administered on 11/29/18at 08:25; Start 11/28/18 at 21:00 Insulin Human Lispro (HumaLOG) 5 units TIDWMEALS SQ Last administered on 11/29/18at 12:54; Start 11/28/18 at 17:00 Magnesium Oxide (Magnesium Oxide) 400 mg DAILY PO Last administered on 11/29/18at 08:34; Start 11/28/18 at 15:00 Multivitamins (Thera M Plus) 1 tab DAILY PO Last administered on 11/29/18at 08:34; Start 11/28/18 at 15:00 Insulin Glargine (Lantus) 5 units QHS SQ Last administered on 11/28/18at 20:52; Start 11/28/18 at 21:00; Stop 11/29/18 at 12:51; Status DC Insulin Glargine (Lantus) 25 units DAILY SQ Last administered on 11/29/18at 08:29; Start 11/29/18 at 09:00 Non-Formulary Medication (Timolol (Betimol)) 1 drop DAILY OU ; Start 11/29/18 at 09:00; Status UNV Pantoprazole Sodium (Protonix) 40 mg DAILYAC PO Last administered on 11/29/18at 08:24; Start 11/29/18 at 07:30 Potassium Chloride/Sodium Chloride 1,000 ml @ 125 mls/hr Q8H IV Last administered on 11/29/18at 02:32; Start 11/28/18 at 14:28 Acetaminophen (Tylenol) 650 mg PRN Q6HRS PRN PO Headaches, Temp > 101.5F; Start 11/28/18 at 14:30 Trimethoprim/ Sulfamethoxazole (Bactrim Ds) 1 tab DAILY PO Last administered on 11/29/18at 08:34; Start 11/28/18 at 15:00; Stop 11/29/18 at 12:51; Status DC Potassium Chloride (Klor-Con) 40 meq 1X ONCE PO ; Start 11/29/18 at 12:30; Stop 11/29/18 at 12:51; Status DC Potassium Chloride (Klor-Con) 20 meq DAILYWBKFT PO ; Start 11/30/18 at 08:00; Stop 11/30/18 at 08:00; Status DC Potassium Chloride (KCl Oral Soln) 40 meq 1X ONCE PO ; Start 11/29/18 at 13:00; Stop 11/29/18 at 13:01; Status DC Potassium Chloride (KCl Oral Soln) 20 meq BID PEG ; Start 11/29/18 at 21:00 Trimethoprim/ Sulfamethoxazole (Bactrim Oral Susp) 15 ml BID PEG ; Start 11/29/18 at 21:00; Stop 11/29/18 at 21:00; Status DC Polyethylene Glycol (miraLAX PACKET) 17 gm DAILY PEG ; Start 11/30/18 at 09:00 Docusate Sodium (Colace Solution) 100 mg BID PO ; Start 11/29/18 at 21:00 Trimethoprim/ Sulfamethoxazole (Bactrim Oral Susp) 20 ml BID PEG ; Start 11/29/18 at 21:00 Active Scripts Active Mag-Oxide (Magnesium Oxide) 400 Mg Tablet 400 Mg PO DAILY 30 Days Furosemide 20 Mg Tablet 20 Mg PO DAILY 30 Days Reported [Pantoprazole] 40 Mg PO DAILY Novolin R (Insulin Regular, Human) 100 Unit/1 Ml Vial 5 Unit IJ SUPPER TIME Novolin N (Nph, Human Insulin Isophane) 100 Unit/1 Ml Vial 5 Unit SQ HS Novolin N (Nph, Human Insulin Isophane) 100 Unit/1 Ml Vial 25 Unit SQ EVERY A.M. Centrum Complete Multivit Tab (Multivitamin/Iron/Folic Acid) 1 Each Tablet 1 Each PO DAILY LAST DOSE GIVEN: DATE:04/15/16 TIME:9:00 a.m. NEXT DOSE DUE: DATE:04/16/16 TIME:9:00 a.m. Aspirin 81 Mg Tab.chew 81 Mg PO DAILY continue home schedule Dorzolamide Hcl 10 Ml Drops 1 Drop OU BID LAST DOSE GIVEN: DATE:04/15/16 TIME:9:00 p.m. NEXT DOSE DUE: DATE:04/15/16 TIME:9:00 p.m. Betimol (Timolol) 5 Ml Drops 1 Drop OU DAILY Allergies Allergies: Coded Allergies: iodine (Verified Allergy, Severe, Hives, 01/23/18) Njapouq-Ezz-Efe Reductase Inhibitor (Verified Allergy, Intermediate, 01/23/18) clopidogrel (Verified Allergy, Intermediate, 01/23/18) dobutamine (Verified Allergy, Intermediate, 01/22/18) naproxen (Verified Allergy, Intermediate, 01/22/18) prasugrel (Verified Allergy, Intermediate, 01/23/18) fluticasone (Verified Allergy, Unknown, 07/20/18) benzalkonium chloride (Verified Adverse Reaction, Intermediate, eye pain, 01/23/18) cefdinir (Verified Adverse Reaction, Intermediate, Nausea and Vomiting, 01/19/18) celecoxib (Verified Adverse Reaction, Intermediate, Nausea and Vomiting, 01/19/18) ciprofloxacin (Verified Adverse Reaction, Intermediate, Nausea and Vomiting, 01/19/18) clindamycin (Verified Adverse Reaction, Intermediate, Nausea and Vomiting, 01/19/18) cyclobenzaprine (Verified Adverse Reaction, Intermediate, Nausea and Vomiting, 01/19/18) dexamethasone (Verified Adverse Reaction, Intermediate, eye pain, 01/23/18) etodolac (Verified Adverse Reaction, Intermediate, Nausea and Vomiting, 01/19/18) gentamicin (Verified Adverse Reaction, Intermediate, eye pain and visioin changes (eye drops), 01/19/18) hydrocodone (Verified Adverse Reaction, Intermediate, Nausea and Vomiting, 01/19/18) DIARRHEA latanoprost (Verified Adverse Reaction, Intermediate, vision changes, 01/19/18) meloxicam (Verified Adverse Reaction, Intermediate, Nausea and Vomiting, ) methocarbamol (Verified Adverse Reaction, Intermediate, Nausea and Vomiting, 01/19/18) omeprazole (Verified Adverse Reaction, Intermediate, nv, 01/19/18) oxycodone (Verified Adverse Reaction, Intermediate, SEVERE CONSTIPATION, 01/19/18) SEVERE CONSTIPATION prednisone (Verified Adverse Reaction, Intermediate, Nausea and Vomiting, 01/19/18) ranitidine (Verified Adverse Reaction, Intermediate, Nausea and Vomiting, 01/23/18) timolol (Verified Adverse Reaction, Intermediate, vision changes, 01/19/18) travoprost (Verified Adverse Reaction, Intermediate, eye pain, 01/23/18) ROS Review of System As per HPI Physical Exam Physical Exam General: No acute distress HEENT: large right forehead hematoma Neck Supple Heart: Regular rate Abdomen: Soft, No tenderness Extremities: No cyanosis, No edema Skin: No breakdown, No significant lesion, RFA laceration, right knee abrasion Neuro: Grossly normal - No Allen Vital Signs Vital Signs Date Time Temp Pulse Resp B/P (MAP) Pulse Ox O2 Delivery O2 Flow Rate FiO2 11/29/18 11:00 96.5 66 18 100/42 (61) Room Air 91.0 96.5 11/29/18 07:00 95 Assessment & Plan JAVI - Suspect pre-renal /Dehydration BUN significantly high due to overdiuresis / UTI IV NS increase rate,monitor closely for signs of vol Overload Hold diuretics strict I/O, if inadequate UOp bladder scan prn Daily standing weight Obtain records from [facility] CKD stage 3 Hyponatremia- suspect sec to above Fall with multiple contusions UTI- On Bactrim per primary Hypokalemia- Replace as per protocol Chronic diastolic/systolic CHF: compensated S/P TAVR: 2017, recent TTE revealed moderate . 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 Complete Heart Block - has a Pacemaker PAFIB/flutter: V paced with artifact HTN: controlled DM2 Multiple allergies i Discuss with RN, No family at bedside Labs Labs Laboratory Tests Test 11/28/18 09:15 11/28/18 10:25 11/28/18 10:35 11/28/18 16:20 White Blood Count 13.1 x10^3/uL (4.0-11.0) Red Blood Count 6.08 x10^6/uL (3.50-5.40) Hemoglobin 15.4 g/dL (12.0-15.5) Hematocrit 47.5 % (36.0-47.0) Mean Corpuscular Volume 78 fL (79-100) Mean Corpuscular Hemoglobin 25 pg (25-35) Mean Corpuscular Hemoglobin Concent 32 g/dL (31-37) Red Cell Distribution Width 19.9 % (11.5-14.5) Platelet Count 206 x10^3/uL (140-400) Neutrophils (%) (Auto) 76 % (31-73) Lymphocytes (%) (Auto) 14 % (24-48) Monocytes (%) (Auto) 9 % (0-9) Eosinophils (%) (Auto) 0 % (0-3) Basophils (%) (Auto) 1 % (0-3) Neutrophils # (Auto) 10.0 x10^3uL (1.8-7.7) Lymphocytes # (Auto) 1.8 x10^3/uL (1.0-4.8) Monocytes # (Auto) 1.2 x10^3/uL (0.0-1.1) Eosinophils # (Auto) 0.0 x10^3/uL (0.0-0.7) Basophils # (Auto) 0.1 x10^3/uL (0.0-0.2) Sodium Level 125 mmol/L (136-145) Potassium Level 2.5 mmol/L (3.5-5.1) Chloride Level 80 mmol/L (98-107) Carbon Dioxide Level 42 mmol/L (21-32) Anion Gap 3 (6-14) Blood Urea Nitrogen 116 mg/dL (7-20) Creatinine 1.7 mg/dL (0.6-1.0) Estimated GFR (Cockcroft-Gault) 28.7 BUN/Creatinine Ratio 68 (6-20) Glucose Level 284 mg/dL (70-99) Calcium Level 10.1 mg/dL (8.5-10.1) Magnesium Level 2.8 mg/dL (1.8-2.4) Total Bilirubin 1.4 mg/dL (0.2-1.0) Aspartate Amino Transf (AST/SGOT) 61 U/L (15-37) Alanine Aminotransferase (ALT/SGPT) 41 U/L (14-59) Alkaline Phosphatase 160 U/L (46-116) Creatine Kinase 170 U/L (26-192) JJ-Ucm-T-Type Natriuretic Peptide 1839 pg/mL (0-449) Total Protein 8.1 g/dL (6.4-8.2) Albumin 3.8 g/dL (3.4-5.0) Albumin/Globulin Ratio 0.9 (1.0-1.7) Urine Collection Type Unknown Urine Color Yellow Urine Clarity Clear Urine pH 7.0 Urine Specific [place] 1.010 Urine Protein Negative mg/dL (NEG-TRACE) Urine Glucose (UA) Negative mg/dL (NEG) Urine Ketones (Stick) Negative mg/dL (NEG) Urine Blood Negative (NEG) Urine Nitrite Negative (NEG) Urine Bilirubin Negative (NEG) Urine Urobilinogen Dipstick 0.2 mg/dL (0.2 mg/dL) Urine Leukocyte Esterase Moderate (NEG) Urine RBC 0 /HPF (0-2) Urine WBC >40 /HPF (0-4) Urine Squamous Epithelial Cells Occ /LPF Urine Bacteria Moderate /HPF (0-FEW) Urine Hyaline Casts Moderate /HPF Glucose (Fingerstick) 219 mg/dL (70-99) Test 11/28/18 16:50 11/28/18 20:49 11/29/18 02:55 11/29/18 07:25 Prothrombin Time 13.9 SEC (11.7-14.0) Prothromb Time International Ratio 1.1 (0.8-1.1) Glucose (Fingerstick) 348 mg/dL (70-99) 149 mg/dL (70-99) White Blood Count 9.3 x10^3/uL (4.0-11.0) Red Blood Count 6.02 x10^6/uL (3.50-5.40) Hemoglobin 15.3 g/dL (12.0-15.5) Hematocrit 46.9 % (36.0-47.0) Mean Corpuscular Volume 78 fL (79-100) Mean Corpuscular Hemoglobin 25 pg (25-35) Mean Corpuscular Hemoglobin Concent 33 g/dL (31-37) Red Cell Distribution Width 20.2 % (11.5-14.5) Platelet Count 196 x10^3/uL (140-400) Neutrophils (%) (Auto) 67 % (31-73) Lymphocytes (%) (Auto) 20 % (24-48) Monocytes (%) (Auto) 11 % (0-9) Eosinophils (%) (Auto) 1 % (0-3) Basophils (%) (Auto) 1 % (0-3) Neutrophils # (Auto) 6.3 x10^3uL (1.8-7.7) Lymphocytes # (Auto) 1.9 x10^3/uL (1.0-4.8) Monocytes # (Auto) 1.1 x10^3/uL (0.0-1.1) Eosinophils # (Auto) 0.1 x10^3/uL (0.0-0.7) Basophils # (Auto) 0.1 x10^3/uL (0.0-0.2) Sodium Level 127 mmol/L (136-145) Potassium Level 2.2 mmol/L (3.5-5.1) Chloride Level 83 mmol/L (98-107) Carbon Dioxide Level 36 mmol/L (21-32) Anion Gap 8 (6-14) Blood Urea Nitrogen 99 mg/dL (7-20) Creatinine 1.4 mg/dL (0.6-1.0) Estimated GFR (Cockcroft-Gault) 35.9 Glucose Level 208 mg/dL (70-99) Calcium Level 9.3 mg/dL (8.5-10.1) Test 11/29/18 12:21 Glucose (Fingerstick) 185 mg/dL (70-99) Laboratory Tests Test 11/28/18 16:20 11/28/18 16:50 11/28/18 20:49 11/29/18 02:55 Glucose (Fingerstick) 219 mg/dL (70-99) 348 mg/dL (70-99) Prothrombin Time 13.9 SEC (11.7-14.0) Prothromb Time International Ratio 1.1 (0.8-1.1) White Blood Count 9.3 x10^3/uL (4.0-11.0) Red Blood Count 6.02 x10^6/uL (3.50-5.40) Hemoglobin 15.3 g/dL (12.0-15.5) Hematocrit 46.9 % (36.0-47.0) Mean Corpuscular Volume 78 fL (79-100) Mean Corpuscular Hemoglobin 25 pg (25-35) Mean Corpuscular Hemoglobin Concent 33 g/dL (31-37) Red Cell Distribution Width 20.2 % (11.5-14.5) Platelet Count 196 x10^3/uL (140-400) Neutrophils (%) (Auto) 67 % (31-73) Lymphocytes (%) (Auto) 20 % (24-48) Monocytes (%) (Auto) 11 % (0-9) Eosinophils (%) (Auto) 1 % (0-3) Basophils (%) (Auto) 1 % (0-3) Neutrophils # (Auto) 6.3 x10^3uL (1.8-7.7) Lymphocytes # (Auto) 1.9 x10^3/uL (1.0-4.8) Monocytes # (Auto) 1.1 x10^3/uL (0.0-1.1) Eosinophils # (Auto) 0.1 x10^3/uL (0.0-0.7) Basophils # (Auto) 0.1 x10^3/uL (0.0-0.2) Sodium Level 127 mmol/L (136-145) Potassium Level 2.2 mmol/L (3.5-5.1) Chloride Level 83 mmol/L (98-107) Carbon Dioxide Level 36 mmol/L (21-32) Anion Gap 8 (6-14) Blood Urea Nitrogen 99 mg/dL (7-20) Creatinine 1.4 mg/dL (0.6-1.0) Estimated GFR (Cockcroft-Gault) 35.9 Glucose Level 208 mg/dL (70-99) Calcium Level 9.3 mg/dL (8.5-10.1) Test 11/29/18 07:25 11/29/18 12:21 Glucose (Fingerstick) 149 mg/dL (70-99) 185 mg/dL (70-99) Review All relevant outside records, renal labs, imaging studies, telemetry/EKG's were reviewed. ULYSSES SNIDER MD November 29, 2018 13:20
--- NOTE | 2018-11-29 14:23 | RAD ---
EXAM: Right humerus, 2 views. HISTORY: Fall. Pain. COMPARISON: None. FINDINGS: 2 views the right humerus are obtained. There is no fracture, dislocation or subluxation. There is mild acromioclavicular osteoarthritis with a small inferiorly directed distal clavicular spur. There is a cardiac pacemaker overlying the right chest wall. There are calcified granulomas within the right lung. There is a chronic corticated ossicle adjacent to the lateral epicondyle, likely sequela of remote injury. IMPRESSION: No acute osseous finding. Electronically signed by: Rica Herring MD (11/29/2018 2:21 PM) [place] [id number]
--- NOTE | 2018-11-29 14:56 | NUR ---
Wound Care Wound care consult for wound screen. Pt has ST to right lower arm, pictured/measured, and redressed wound with contact layer and foam, recommend to change every 2-3 days. Right knee abrasion and Right 3rd toe wound are resolved at this time. No other wounds noted on full skin inspection. Pt on P500 bed, c/o sore buttocks, no wounds found. Pt educated on PU prevention, will need reinforcement due to mental status. Discussed POC with Karla BLACKMAN. WC will continue to follow for possible changes.
[2018-11-29 15:00] VITALS: BP 121/47
--- NOTE | 2018-11-29 16:14 | NUR ---
SW consulted for dc needs. Chart reviewed. Pt is from home and PT/OT is pending. SW will await for PT/OT recommendation to assess needs. Will continue to follow.
[2018-11-29 19:35] VITALS: BP 110/87
[2018-11-29] MEDS ORDERED: SMZ/TMP 200MG/40MG 5 ML ORAL.SUSP. PEG SCH (21:00)
[2018-11-29] MEDS: SMZ/TMP 200MG/40MG 5 ML ORAL.SUSP. PEG SCH (21:19)
[2018-11-29] MEDS: POTASSIUM CHLORIDE 20 MEQ/15 ML ORAL LIQUID. PEG SCH (21:20)
[2018-11-29] MEDS: DOCUSATE 100 MG/10 ML SOLUTION. PO SCH (21:22)
[2018-11-29] MEDS: LACTOBACILLUS RHAMNOSUS GG 1 CAPSULE. PO SCH (21:23)
[2018-11-29 23:35] VITALS: BP 113/47
[2018-11-30 03:35] VITALS: BP 116/49
[2018-11-30 07:35] VITALS: BP 118/34
[2018-11-30 07:48] LABS: ALBUMIN 3.3 g/dL (3.4-5.0); CALCIUM 8.9 mg/dL (8.5-10.1); CREATININE 1.2 mg/dL (0.6-1.0); GFR 42.9; POTASSIUM 3.8 mmol/L (3.5-5.1)
[2018-11-30] MEDS ORDERED: POTASSIUM CHLORIDE 20 MEQ TABLET.ER. PO SCH (08:00)
[2018-11-30] MEDS: PANTOPRAZOLE 40 MG TABLET.DR. PO SCH (08:19)
[2018-11-30] MEDS: MAGNESIUM OXIDE 400 MG TABLET PO SCH (08:19)
[2018-11-30] MEDS: LACTOBACILLUS RHAMNOSUS GG 1 CAPSULE. PO SCH ×2 (08:19→20:41)
[2018-11-30] MEDS: MULTIVITAMIN with MINERAL TABLET. PO SCH ×2 (08:19→09:00)
[2018-11-30] MEDS: SMZ/TMP 200MG/40MG 5 ML ORAL.SUSP. PEG SCH ×2 (08:20→20:43)
[2018-11-30] MEDS: ASPIRIN CHEWABLE 81 MG TABLET. PO SCH (08:21)
[2018-11-30] MEDS: DOCUSATE 100 MG/10 ML SOLUTION. PO SCH ×2 (08:21→20:42)
[2018-11-30] MEDS: DORZOLAMIDE 2% OPHTH SOLUTION 10ML BOTTLE. OU SCH ×2 (08:36→20:48)
[2018-11-30] MEDS: POTASSIUM CHLORIDE 20 MEQ/15 ML ORAL LIQUID. PEG SCH (09:00)
[2018-11-30] MEDS: INSULIN GLARGINE 300 UNITS/3 ML INSULN.PEN. SQ SCH (09:05)
[2018-11-30] MEDS: INSULIN LISPRO 300 UNITS/3 ML INSULN.PEN. SQ SCH ×3 (09:07→17:01)
[2018-11-30 10:33] VITALS: BP 106/49
--- NOTE | 2018-11-30 10:36 | PDOC ---
SUBJECTIVE ROS Stable, No new complaints OBJECTIVE Vital Signs Vital Signs Date Time Temp Pulse Resp B/P (MAP) Pulse Ox O2 Delivery O2 Flow Rate FiO2 11/30/18 08:00 Room Air 11/30/18 07:35 98.2 76 18 118/34 (62) 96 98.2 11/29/18 11:00 91.0 I & 0 Intake and Output 11/30/18 07:00 Intake Total 1340 ml Output Total 1000 ml Balance 340 ml Intake Oral 1340 ml Output Urine Total 1000 ml # Voids 2 PHYSICAL EXAM Physical Exam General: No acute distress HEENT: large right forehead hematoma Neck Supple Heart: Regular rate Abdomen: Soft, No tenderness Extremities: No cyanosis, No edema Skin: No breakdown, No significant lesion, RFA laceration, right knee abrasion Neuro: Grossly normal - No Allen DIAGNOSIS/ASSESSMENT Assessment & Plan JAVI - Suspect pre-renal /Dehydration BUN significantly high due to overdiuresis / UTI Renal Function improving with IVF Holding diuretics strict I/O, CKD stage 3 - Follow with [facility] as OP post dc (Routine Non Urgent) Hyponatremia- suspect sec to above Improving Fall with multiple contusions UTI- On Bactrim per primary Hypokalemia- Replace as per protocol Chronic diastolic/systolic CHF: compensated S/P TAVR: 2017, recent TTE revealed moderate . 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 Complete Heart Block - has a Pacemaker PAFIB/flutter: V paced with artifact HTN: controlled DM2 Multiple allergies i Discuss with RN, COMMENT/RELEVANT DATA Meds Current Medications Medications (Trade) Dose Ordered Sig/Ashley Start Time Stop Time Status Last Admin Dose Admin Acetaminophen (Tylenol) 650 mg PRN Q6HRS PRN 11/28/18 14:30 Aspirin (Children'S Aspirin) 81 mg DAILY 11/28/18 15:00 11/30/18 08:21 81 MG Docusate Sodium (Colace Solution) 100 mg BID 11/29/18 21:00 11/30/18 08:21 100 MG Dorzolamide HCl (Trusopt) 1 drop BID 11/28/18 21:00 11/30/18 08:36 1 DROP Insulin Glargine (Lantus) 25 units DAILY 11/29/18 09:00 11/30/18 09:05 25 UNITS Insulin Human Lispro (HumaLOG) 5 units TIDWMEALS 11/28/18 17:00 11/30/18 09:07 5 UNITS Lactobacillus Rhamnosus (Culturelle) 1 cap BID 11/29/18 21:00 11/30/18 08:19 1 CAP Magnesium Oxide (Magnesium Oxide) 400 mg DAILY 11/28/18 15:00 11/30/18 08:19 400 MG Multivitamins (Thera M Plus) 1 tab DAILY 11/28/18 15:00 11/30/18 08:19 1 TAB Non-Formulary Medication (Timolol (Betimol)) 1 drop DAILY 11/29/18 09:00 UNV Pantoprazole Sodium (Protonix) 40 mg DAILYAC 11/29/18 07:30 11/30/18 08:19 40 MG Polyethylene Glycol (miraLAX PACKET) 17 gm DAILY 11/30/18 09:00 Potassium Chloride/Sodium Chloride 1,000 ml @ 125 mls/hr Q8H 11/28/18 14:28 11/30/18 05:36 125 MLS/HR Potassium Chloride (KCl Oral Soln) 20 meq BID 11/29/18 21:00 11/29/18 21:20 20 MEQ Potassium Chloride (Klor-Con) 20 meq DAILYWBKFT 11/30/18 08:00 11/30/18 08:00 DC Trimethoprim/ Sulfamethoxazole (Bactrim Ds) 1 tab DAILY 11/28/18 15:00 11/29/18 12:51 DC 11/29/18 08:34 1 TAB Trimethoprim/ Sulfamethoxazole (Bactrim Oral Susp) 20 ml BID 11/29/18 21:00 11/30/18 08:20 20 ML Lab Laboratory Tests Test 11/29/18 12:21 11/29/18 17:16 11/29/18 21:05 11/30/18 05:05 Glucose (Fingerstick) 185 mg/dL (70-99) 156 mg/dL (70-99) 176 mg/dL (70-99) Sodium Level 132 mmol/L (136-145) Potassium Level 3.8 mmol/L (3.5-5.1) Chloride Level 94 mmol/L (98-107) Carbon Dioxide Level 31 mmol/L (21-32) Anion Gap 7 (6-14) Blood Urea Nitrogen 53 mg/dL (7-20) Creatinine 1.2 mg/dL (0.6-1.0) Estimated GFR (Cockcroft-Gault) 42.9 Glucose Level 205 mg/dL (70-99) Calcium Level 8.9 mg/dL (8.5-10.1) Phosphorus Level 2.0 mg/dL (2.6-4.7) Albumin 3.3 g/dL (3.4-5.0) Thyroid Stimulating Hormone (TSH) 1.530 uIU/mL (0.358-3.74) Test 11/30/18 07:35 Glucose (Fingerstick) 199 mg/dL (70-99) Results All relevant outside records, renal labs, imaging studies, telemetry/EKG's were reviewed. ULYSSES SNIDER MD November 30, 2018 10:36
--- NOTE | 2018-11-30 11:06 | NUR ---
Non administered multivitamin, patient's daughter claimed it was stopped because of interaction with the eyedrops. The patient's daughter was aggressive verbally, said that the nursing staff is "killing her mother". This nurse reviewed with her the patient's home medications. She said that the patient cannot have generic timolol eyedrops. Patient also complained of pain 9/10 on her shoulders, has tylenol as prn. Medicine was offered to the patient, however refused. Paged Dr. Elena for new order of pain medicine.
[2018-11-30] MEDS: POLYETHYLENE GLYCOL 3350 17 GM PACKET. PEG SCH (12:26)
--- NOTE | 2018-11-30 14:07 | PDOC ---
PROGRESS NOTES Subjective Subjective Patient complains of sore throat after taking large doses of liquid potassium. Patient's potassium now normal. By mouth potassium discontinued. Patient suffering with dysphagia and cannot swallow large her potassium pills. Patient also complains of ongoing right arm pain. Patient had negative x-ray yesterday for fracture. Patient intolerant to most medications for pain. Patient resistant to most treatments at this time but declines palliative care. Objective Objective Vital Signs Date Time Temp Pulse Resp B/P (MAP) Pulse Ox O2 Delivery O2 Flow Rate FiO2 11/30/18 10:33 98.1 75 17 106/49 (68) 96 Room Air 98.1 11/29/18 11:00 91.0 Intake and Output 11/30/18 07:00 Intake Total 1340 ml Output Total 1000 ml Balance 340 ml Intake Oral 1340 ml Output Urine Total 1000 ml # Voids 2 Physical Exam Abdomen: Normal bowel sounds Heart: Regular rate Extremities: No edema General: Alert Lungs: Clear to auscultation Assessment Assessment Problems Medical Problems: (1) Acute kidney injury Status: Acute 1. Mechanical fall with contusion. 2. Acute renal failure improved with creatinine down to 1.2 baseline 0.8. 3. Hyponatremia. Improving 4. Hypokalemia improved 5. Urinary tract infection. 6. Suspected sepsis. 7. Debilitation. 8. Dysphasia Plan Plan of Care Continue gentle hydration Plan for transfer to intermediate if indicated. continue card care PT/OT as tolerated speech eval follow labs Comment Review of Relevant I have reviewed the following items vito (where applicable) has been applied. Labs Laboratory Tests Test 11/28/18 16:20 11/28/18 16:50 11/28/18 20:49 11/29/18 02:55 Glucose (Fingerstick) 219 mg/dL (70-99) 348 mg/dL (70-99) Prothrombin Time 13.9 SEC (11.7-14.0) Prothromb Time International Ratio 1.1 (0.8-1.1) White Blood Count 9.3 x10^3/uL (4.0-11.0) Red Blood Count 6.02 x10^6/uL (3.50-5.40) Hemoglobin 15.3 g/dL (12.0-15.5) Hematocrit 46.9 % (36.0-47.0) Mean Corpuscular Volume 78 fL (79-100) Mean Corpuscular Hemoglobin 25 pg (25-35) Mean Corpuscular Hemoglobin Concent 33 g/dL (31-37) Red Cell Distribution Width 20.2 % (11.5-14.5) Platelet Count 196 x10^3/uL (140-400) Neutrophils (%) (Auto) 67 % (31-73) Lymphocytes (%) (Auto) 20 % (24-48) Monocytes (%) (Auto) 11 % (0-9) Eosinophils (%) (Auto) 1 % (0-3) Basophils (%) (Auto) 1 % (0-3) Neutrophils # (Auto) 6.3 x10^3uL (1.8-7.7) Lymphocytes # (Auto) 1.9 x10^3/uL (1.0-4.8) Monocytes # (Auto) 1.1 x10^3/uL (0.0-1.1) Eosinophils # (Auto) 0.1 x10^3/uL (0.0-0.7) Basophils # (Auto) 0.1 x10^3/uL (0.0-0.2) Sodium Level 127 mmol/L (136-145) Potassium Level 2.2 mmol/L (3.5-5.1) Chloride Level 83 mmol/L (98-107) Carbon Dioxide Level 36 mmol/L (21-32) Anion Gap 8 (6-14) Blood Urea Nitrogen 99 mg/dL (7-20) Creatinine 1.4 mg/dL (0.6-1.0) Estimated GFR (Cockcroft-Gault) 35.9 Glucose Level 208 mg/dL (70-99) Calcium Level 9.3 mg/dL (8.5-10.1) Test 11/29/18 07:25 11/29/18 12:21 11/29/18 17:16 11/29/18 21:05 Glucose (Fingerstick) 149 mg/dL (70-99) 185 mg/dL (70-99) 156 mg/dL (70-99) 176 mg/dL (70-99) Test 11/30/18 05:05 11/30/18 07:35 11/30/18 11:15 Sodium Level 132 mmol/L (136-145) Potassium Level 3.8 mmol/L (3.5-5.1) Chloride Level 94 mmol/L (98-107) Carbon Dioxide Level 31 mmol/L (21-32) Anion Gap 7 (6-14) Blood Urea Nitrogen 53 mg/dL (7-20) Creatinine 1.2 mg/dL (0.6-1.0) Estimated GFR (Cockcroft-Gault) 42.9 Glucose Level 205 mg/dL (70-99) Calcium Level 8.9 mg/dL (8.5-10.1) Phosphorus Level 2.0 mg/dL (2.6-4.7) Albumin 3.3 g/dL (3.4-5.0) Thyroid Stimulating Hormone (TSH) 1.530 uIU/mL (0.358-3.74) Glucose (Fingerstick) 199 mg/dL (70-99) 279 mg/dL (70-99) Laboratory Tests Test 11/29/18 17:16 11/29/18 21:05 11/30/18 05:05 11/30/18 07:35 Glucose (Fingerstick) 156 mg/dL (70-99) 176 mg/dL (70-99) 199 mg/dL (70-99) Sodium Level 132 mmol/L (136-145) Potassium Level 3.8 mmol/L (3.5-5.1) Chloride Level 94 mmol/L (98-107) Carbon Dioxide Level 31 mmol/L (21-32) Anion Gap 7 (6-14) Blood Urea Nitrogen 53 mg/dL (7-20) Creatinine 1.2 mg/dL (0.6-1.0) Estimated GFR (Cockcroft-Gault) 42.9 Glucose Level 205 mg/dL (70-99) Calcium Level 8.9 mg/dL (8.5-10.1) Phosphorus Level 2.0 mg/dL (2.6-4.7) Albumin 3.3 g/dL (3.4-5.0) Thyroid Stimulating Hormone (TSH) 1.530 uIU/mL (0.358-3.74) Test 11/30/18 11:15 Glucose (Fingerstick) 279 mg/dL (70-99) Microbiology 11/28/18 Urine Culture - Final, Complete 11/28/18 Urine Culture Result 1 (MARIANNE) - Final, Complete Medications Current Medications Potassium Chloride (Klor-Con) 40 meq 1X ONCE PO Last administered on 11/28/18at 11:31; Start 11/28/18 at 11:30; Stop 11/28/18 at 11:31; Status DC Aspirin (Children'S Aspirin) 81 mg DAILY PO Last administered on 11/30/18at 08:21; Start 11/28/18 at 15:00 Dorzolamide HCl (Trusopt) 1 drop BID OU Last administered on 11/30/18at 08:36; Start 11/28/18 at 21:00 Insulin Human Lispro (HumaLOG) 5 units TIDWMEALS SQ Last administered on 11/30/18at 12:36; Start 11/28/18 at 17:00 Magnesium Oxide (Magnesium Oxide) 400 mg DAILY PO Last administered on 11/30/18at 08:19; Start 11/28/18 at 15:00 Multivitamins (Thera M Plus) 1 tab DAILY PO Last administered on 11/29/18at 08:34; Start 11/28/18 at 15:00; Stop 11/30/18 at 11:35; Status DC Insulin Glargine (Lantus) 5 units QHS SQ Last administered on 11/28/18at 20:52; Start 11/28/18 at 21:00; Stop 11/29/18 at 12:51; Status DC Insulin Glargine (Lantus) 25 units DAILY SQ Last administered on 11/30/18at 09:05; Start 11/29/18 at 09:00 Non-Formulary Medication (Timolol (Betimol)) 1 drop DAILY OU ; Start 11/29/18 at 09:00; Status UNV Pantoprazole Sodium (Protonix) 40 mg DAILYAC PO Last administered on 11/30/18at 08:19; Start 11/29/18 at 07:30 Potassium Chloride/Sodium Chloride 1,000 ml @ 125 mls/hr Q8H IV Last administered on 11/30/18at 05:36; Start 11/28/18 at 14:28; Stop 11/30/18 at 11:37; Status DC Acetaminophen (Tylenol) 650 mg PRN Q6HRS PRN PO Headaches, Temp > 101.5F; Start 11/28/18 at 14:30 Trimethoprim/ Sulfamethoxazole (Bactrim Ds) 1 tab DAILY PO Last administered on 11/29/18at 08:34; Start 11/28/18 at 15:00; Stop 11/29/18 at 12:51; Status DC Potassium Chloride (Klor-Con) 40 meq 1X ONCE PO ; Start 11/29/18 at 12:30; Stop 11/29/18 at 12:51; Status DC Potassium Chloride (Klor-Con) 20 meq DAILYWBKFT PO ; Start 11/30/18 at 08:00; Stop 11/30/18 at 08:00; Status DC Potassium Chloride (KCl Oral Soln) 40 meq 1X ONCE PO Last administered on 11/29/18at 14:24; Start 11/29/18 at 13:00; Stop 11/29/18 at 13:01; Status DC Potassium Chloride (KCl Oral Soln) 20 meq BID PEG Last administered on 11/29/18at 21:20; Start 11/29/18 at 21:00; Stop 11/30/18 at 11:35; Status DC Trimethoprim/ Sulfamethoxazole (Bactrim Oral Susp) 15 ml BID PEG ; Start 11/29/18 at 21:00; Stop 11/29/18 at 21:00; Status DC Polyethylene Glycol (miraLAX PACKET) 17 gm DAILY PEG Last administered on 11/30/18at 12:26; Start 11/30/18 at 09:00 Docusate Sodium (Colace Solution) 100 mg BID PO Last administered on 11/30/18at 08:21; Start 11/29/18 at 21:00 Trimethoprim/ Sulfamethoxazole (Bactrim Oral Susp) 20 ml BID PEG Last administered on 11/30/18at 08:20; Start 11/29/18 at 21:00 Lactobacillus Rhamnosus (Culturelle) 1 cap BID PO Last administered on 11/30/18at 08:19; Start 11/29/18 at 21:00 Potassium Chloride/Sodium Chloride 1,000 ml @ 100 mls/hr Q10H IV ; Start 11/30/18 at 12:00 Active Scripts Active Mag-Oxide (Magnesium Oxide) 400 Mg Tablet 400 Mg PO DAILY 30 Days Furosemide 20 Mg Tablet 20 Mg PO DAILY 30 Days Reported [Pantoprazole] 40 Mg PO DAILY Novolin R (Insulin Regular, Human) 100 Unit/1 Ml Vial 5 Unit IJ SUPPER TIME Novolin N (Nph, Human Insulin Isophane) 100 Unit/1 Ml Vial 5 Unit SQ HS Novolin N (Nph, Human Insulin Isophane) 100 Unit/1 Ml Vial 25 Unit SQ EVERY A.M. Aspirin 81 Mg Tab.chew 81 Mg PO DAILY continue home schedule Dorzolamide Hcl 10 Ml Drops 1 Drop OU BID LAST DOSE GIVEN: DATE:04/15/16 TIME:9:00 p.m. NEXT DOSE DUE: DATE:04/15/16 TIME:9:00 p.m. Betimol (Timolol) 5 Ml Drops 1 Drop OU DAILY Vitals/I & O Vital Sign - Last 24 Hours 11/29/18 11/29/18 11/29/18 11/29/18 15:00 19:35 20:00 23:35 Temp 97.3 97.7 97.9 97.3 97.7 97.9 Pulse 94 78 80 Resp 16 16 18 B/P (MAP) 121/47 (71) 110/87 (95) 113/47 (69) Pulse Ox 100 97 100 O2 Delivery Room Air Room Air Room Air Room Air 11/30/18 11/30/18 11/30/18 11/30/18 03:35 07:35 08:00 10:33 Temp 97.4 98.2 98.1 97.4 98.2 98.1 Pulse 77 76 75 Resp 18 18 17 B/P (MAP) 116/49 (71) 118/34 (62) 106/49 (68) Pulse Ox 98 96 96 O2 Delivery Room Air Room Air Room Air Room Air Intake and Output 11/29/18 11/29/18 11/30/18 15:00 23:00 07:00 Intake Total 500 ml 540 ml 300 ml Output Total 100 ml 100 ml 800 ml Balance 400 ml 440 ml -500 ml Nutrition Consultation Dietary Evaluation: Recommendations by RD: Increase Calorie Intake, Protein supplementation Comments: shyanne bid mvi Expected Outcomes/Goals: to meet > 75% est nutr needs Interpretation of weight loss: >5% in 1 month Malnutrition Findings: Body Fat Depletion (Non Severe: Mild Depletion Weight Status: Appropriate DE RANGEL MD November 30, 2018 14:07
[2018-11-30 14:51] VITALS: BP 107/44
--- NOTE | 2018-11-30 15:00 | NUR ---
DISCHARGE INSTRUCTIONS GIVEN, SALINE LOCK REMOVED FROM LEFT FOREARM AND BANDAGE APPLIED PER THIS CFD ENGINEER, QUESTIONS AND CONCERNS ANSWERED, PATIENT VERBALIZED UNDERSTANDING OF DISCHARGE INFORMATION INCLUDING TAKING ALL MEDICATIONS INSTRUCTED AND FOLLOWING UP WITH HER PRIMARY PROVIDER IN 1-2 WEEKS. PATIENT INFORMED THAT HER PRESCRIPTION FOR CIPRO HAS BEEN CALLED TO HER PHARMACY AND SHOULD BE READY FOR ETHNOARCHAEOLOGIST. ALL PERSONAL BELONGINGS GATHERED BY THE PATIENT AND PLACED IN BAGS FOR DISCHARGE.
--- NOTE | 2018-11-30 15:19 | NUR ---
Patient complained that nursing staff was not prompt in answering her calls. This nurse reassured her that other nurses will come to check on her if I'm not available/ attending other patients. She was assisted to the bathroom and put back to bed, call light placed within reach. She still complains of soreness, however claimed she cannot take medicines PO/ topical because of multiple allergies.
--- NOTE | 2018-11-30 16:00 | NUR ---
MELONIE following pt. PT/OT recommends SNU. MELONIE spoke with pt's daughterMili via phone about SNU and options. Daughter reported she had discussed with Physician about pt going to [facility]. SW discussed medicare coverage for SNU and daughter agreeable with [facility]. MELONIE phoned and faxed referral to [facility]. Pt acceptance and admission pending. Will continue to follow.
--- NOTE | 2018-11-30 16:10 | NUR ---
PATIENT LEAVES THE UNIT PER W/C ACCOMPANIED BY REFRIGERATING TECHNICIAN, EMOTIONAL SUPPORT GIVEN, FOLLOW UP APPOINTMENTS ENCOURAGED.
--- NOTE | 2018-11-30 17:00 | NUR ---
Ok to discontinue telemetry monitoring per attending. Report called to HIRAL [facility] at 1650, patient was transferred from Rm [id number] to 504. Addendum: 11/30/18 at 1727 by SERGIO WELLER RN Called patient's son Leo at 1710 about the room transfer, however did not reply. Message left on his voicemail.
[2018-11-30 19:00] VITALS: BP 112/57
[2018-11-30 19:09] LABS: SODIUM, URINE <60 mmol/L (Not Estab.); UR POTASSIUM 24.4 mmol/L (Not Estab.)
[2018-11-30] MEDS ORDERED: LATA2.5D3 EACHEYE (19:44)
[2018-11-30] MEDS ORDERED: LATANOPROST 0.005% OPHTH SOLUTION 2.5ML BOTTLE. OU SCH (21:00)
[2018-11-30 23:00] VITALS: BP 120/65
[2018-12-01 03:00] VITALS: BP 129/64
[2018-12-01 06:44] LABS: CALCIUM 8.4 mg/dL (8.5-10.1); CREATININE 0.9 mg/dL (0.6-1.0); GFR 59.8; POTASSIUM 4.1 mmol/L (3.5-5.1)
[2018-12-01 07:00] VITALS: BP 116/44
[2018-12-01] MEDS ORDERED: LATANOPROST 0.005% OPHTH SOLUTION 2.5ML BOTTLE. OU SCH (07:38)
[2018-12-01] MEDS: INSULIN LISPRO 300 UNITS/3 ML INSULN.PEN. SQ SCH ×2 (08:00→12:19)
--- NOTE | 2018-12-01 09:02 | NUR ---
MELONIE following Pt. Pt has been accepted at [facility] and facility will have a bed available upon dc. Discussed with RN.
[2018-12-01] MEDS: LACTOBACILLUS RHAMNOSUS GG 1 CAPSULE. PO SCH (10:17)
[2018-12-01] MEDS: ASPIRIN CHEWABLE 81 MG TABLET. PO SCH (10:18)
[2018-12-01] MEDS: MAGNESIUM OXIDE 400 MG TABLET PO SCH (10:18)
[2018-12-01] MEDS: PANTOPRAZOLE 40 MG TABLET.DR. PO SCH (10:18)
[2018-12-01] MEDS: POLYETHYLENE GLYCOL 3350 17 GM PACKET. PEG SCH (10:19)
[2018-12-01] MEDS: SMZ/TMP 200MG/40MG 5 ML ORAL.SUSP. PEG SCH (10:19)
[2018-12-01] MEDS: INSULIN GLARGINE 300 UNITS/3 ML INSULN.PEN. SQ SCH (10:50)
[2018-12-01 11:00] VITALS: BP 107/43
[2018-12-01] MEDS ORDERED: DOCU50LI12 PO (11:09)
[2018-12-01] MEDS ORDERED: DOCUSATE SODIUM 100 MG CAPSULE. PO SCH (11:30)
--- NOTE | 2018-12-01 11:54 | PDOC ---
SUBJECTIVE ROS Stable, OBJECTIVE Vital Signs Vital Signs Date Time Temp Pulse Resp B/P (MAP) Pulse Ox O2 Delivery O2 Flow Rate FiO2 12/01/18 11:00 98.0 83 18 107/43 (64) 98 Room Air 98.0 I & 0 Intake and Output 12/01/18 07:00 Intake Total 1200 ml Output Total 1 ml Balance 1199 ml Intake Oral 1200 ml Output Urine Total 1 ml # Voids 8 PHYSICAL EXAM Physical Exam General: No acute distress HEENT: large right forehead hematoma Neck Supple Heart: Regular rate Abdomen: Soft, No tenderness Extremities: No cyanosis, No edema Skin: No breakdown, No significant lesion, RFA laceration, right knee abrasion Neuro: Grossly normal - No Allen DIAGNOSIS/ASSESSMENT Assessment & Plan JAVI - Suspect pre-renal /Dehydration/ Cardiorenal BUN significantly high due to overdiuresis / UTI Renal Function improved and back to her baseline Holding diuretics strict I/O, Hyponatremia- suspect sec to above Stable , restrict free water to 8953-9349 ml Fall with multiple contusions UTI- On Bactrim per primary Hypokalemia- Replace as per protocol Chronic diastolic/systolic CHF: compensated Cautious with diuretics an Close Monitoring S/P TAVR: 2017, recent TTE revealed moderate . 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 Complete Heart Block - has a Pacemaker PAFIB/flutter: V paced with artifact HTN: controlled DM2 Multiple allergies i Will sign off COMMENT/RELEVANT DATA Meds Current Medications Medications (Trade) Dose Ordered Sig/Ashley Start Time Stop Time Status Last Admin Dose Admin Acetaminophen (Tylenol) 650 mg PRN Q6HRS PRN 11/28/18 14:30 Aspirin (Children'S Aspirin) 81 mg DAILY 11/28/18 15:00 12/01/18 10:18 81 MG Docusate Sodium (Colace Solution) 100 mg BID 11/29/18 21:00 12/01/18 11:10 DC 11/30/18 20:42 100 MG Docusate Sodium (Colace) 100 mg BID 12/01/18 11:30 Dorzolamide HCl (Trusopt) 1 drop BID 11/28/18 21:00 11/30/18 20:48 1 DROP Insulin Glargine (Lantus) 25 units DAILY 11/29/18 09:00 12/01/18 10:50 25 UNITS Insulin Human Lispro (HumaLOG) 5 units TIDWMEALS 11/28/18 17:00 11/30/18 17:01 5 UNITS Lactobacillus Rhamnosus (Culturelle) 1 cap BID 11/29/18 21:00 12/01/18 10:17 1 CAP Latanoprost (Xalatan) 1 drop QHS 12/01/18 07:38 Magnesium Oxide (Magnesium Oxide) 400 mg DAILY 11/28/18 15:00 12/01/18 10:18 400 MG Multivitamins (Thera M Plus) 1 tab DAILY 11/28/18 15:00 11/30/18 11:35 DC 11/29/18 08:34 1 TAB Non-Formulary Medication (Timolol (Betimol)) 1 drop DAILY 11/29/18 09:00 UNV Pantoprazole Sodium (Protonix) 40 mg DAILYAC 11/29/18 07:30 12/01/18 10:18 40 MG Polyethylene Glycol (miraLAX PACKET) 17 gm DAILY 11/30/18 09:00 12/01/18 10:19 17 GM Potassium Chloride/Sodium Chloride 1,000 ml @ 100 mls/hr Q10H 11/30/18 12:00 12/01/18 11:03 DC 12/01/18 01:45 100 MLS/HR Potassium Chloride (KCl Oral Soln) 20 meq BID 11/29/18 21:00 11/30/18 11:35 DC 11/29/18 21:20 20 MEQ Potassium Chloride (Klor-Con) 20 meq DAILYWBKFT 11/30/18 08:00 11/30/18 08:00 DC Trimethoprim/ Sulfamethoxazole (Bactrim Ds) 1 tab DAILY 11/28/18 15:00 11/29/18 12:51 DC 11/29/18 08:34 1 TAB Trimethoprim/ Sulfamethoxazole (Bactrim Oral Susp) 20 ml BID 11/29/18 21:00 12/01/18 10:19 20 ML Lab Laboratory Tests Test 11/30/18 16:54 11/30/18 21:20 12/01/18 04:05 12/01/18 08:39 Glucose (Fingerstick) 205 mg/dL (70-99) 122 mg/dL (70-99) 233 mg/dL (70-99) Sodium Level 130 mmol/L (136-145) Potassium Level 4.1 mmol/L (3.5-5.1) Chloride Level 95 mmol/L (98-107) Carbon Dioxide Level 28 mmol/L (21-32) Anion Gap 7 (6-14) Blood Urea Nitrogen 31 mg/dL (7-20) Creatinine 0.9 mg/dL (0.6-1.0) Estimated GFR (Cockcroft-Gault) 59.8 Glucose Level 140 mg/dL (70-99) Calcium Level 8.4 mg/dL (8.5-10.1) Results All relevant outside records, renal labs, imaging studies, telemetry/EKG's were reviewed. ULYSSES SNIDER MD December 01, 2018 11:54
[2018-12-01] MEDS ORDERED: BISACODYL 10 MG SUPP.RECT. PR ONE (12:00)
[2018-12-01] MEDS ORDERED: MAGNESIUM CITRATE 296 ML SOLUTION. PO ONE (12:00)
[2018-12-01] MEDS ORDERED: PHENOL ORAL SPRAY 177ML BOTTLE. PO PRN (12:00)
[2018-12-01] MEDS ORDERED: POLY17PO28 PEG (12:04)
[2018-12-01] MEDS: DORZOLAMIDE 2% OPHTH SOLUTION 10ML BOTTLE. OU SCH (12:04)
[2018-12-01] MEDS ORDERED: DOCU-109 PO (12:04)
[2018-12-01] MEDS ORDERED: PHEN177S7 PO (12:07)
--- NOTE | 2018-12-01 12:10 | SNU/HH DC ---
DISCHARGE ORDERS DISCHARGE INFORMATION: FINAL DIAGNOSIS Problems Medical Problems: (1) Acute kidney injury Status: Acute CONDITION ON DISCHARGE: Stable CODE STATUS: Code Status: DNR/DNI LONG TERM: SNF STAY <30 DAYS: Yes POST DISCHARGE ORDERS: ACTIVITY ORDERS: Other, see below WEIGHT BEARING STATUS: As tolerated, Other, see below BATHING ORDERS: No Tub Bath until see DIET AFTER DISCHARGE: ADA WOUND/INCISION CARE: Ice to area for comfort, Keep wound/cast CDI, Change dressing, May get incision wet OTHER ORDERS: weight M,W,F CHECKS AFTER DISCHARGE: CHECKS AFTER DISCHARGE: Check blood press - daily, Check blood sugar, ac/hs TREATMENT/EQUIPMENT ORDERS: ADAPTIVE EQUIPMENT NEEDED: None Physical Therapy For: Evalulation/Treatment Occupational Therapy For: Evaluation/Treatment Speech Language Pathology For: Evaluation/Treatment DISCHARGE MEDICATIONS: Home Meds Active Scripts Phenol (PHENASEPTIC) 177 Ml [place], 1 SPRAY PO PRN Q2HR PRN for SORE THROAT for 14 Days, #1 SPRAY Prov:DE RANGEL MD 12/01/18 Docusate Sodium (COLACE) 100 Mg Capsule, 100 MG PO BID for constipation for 30 Days, #60 CAP Prov:DE RANGEL MD 12/01/18 Polyethylene Glycol 3350 (POLYETHYLENE GLYCOL 3350) 17 Gm Powd.pack, 17 GM PEG DAILY for constipation for 30 Days, #30 PKT Prov:DE RANGEL MD 12/01/18 Docusate Sodium (DOCU LIQUID) 50 Mg/5 Ml Liquid, 100 MG PO BID for constipation for 30 Days, #600 ML Prov:DE RANGEL MD 12/01/18 Reported Medications Latanoprost (LATANOPROST) 2.5 Ml Drops, 1 DROP EACHEYE QHS for eye drops, #7.5 ML 3 Refills 11/30/18 [Pantoprazole] No Conflict Check, 40 MG PO DAILY 01/20/18 Insulin Regular, Human (NOVOLIN R) 100 Unit/1 Ml Vial, 5 UNIT IJ SUPPER TIME, VIAL 04/01/16 Nph, Human Insulin Isophane (NOVOLIN N) 100 Unit/1 Ml Vial, 5 UNIT SQ HS, VIAL 04/01/16 Nph, Human Insulin Isophane (NOVOLIN N) 100 Unit/1 Ml Vial, 25 UNIT SQ EVERY A.M., VIAL 04/01/16 Aspirin (ASPIRIN) 81 Mg Tab.chew, 81 MG PO DAILY, TAB.CHEW continue home schedule 12/27/13 Dorzolamide Hcl (DORZOLAMIDE HCL) 10 Ml Drops, 1 DROP OU BID LAST DOSE GIVEN: DATE:04/15/16 TIME:9:00 p.m. NEXT DOSE DUE: DATE:04/15/16 TIME:9:00 p.m. 12/27/13 Timolol (BETIMOL) 5 Ml Drops, 1 DROP OU DAILY 12/27/13 Discontinued Reported Medications Multivitamin/Iron/Folic Acid (CENTRUM COMPLETE MULTIVIT TAB) 1 Each Tablet, 1 EACH PO DAILY LAST DOSE GIVEN: DATE:04/15/16 TIME:9:00 a.m. NEXT DOSE DUE: DATE:04/16/16 TIME:9:00 a.m. 12/27/13 Discontinued Scripts Magnesium Oxide (MAG-OXIDE) 400 Mg Tablet, 400 MG PO DAILY for 30 Days, #30 TAB 6 Refills Prov:DE RANGEL MD 01/25/18 Furosemide (FUROSEMIDE) 20 Mg Tablet, 20 MG PO DAILY for 30 Days, #30 TAB 6 Refills Prov:DE RANGEL MD 01/25/18 Amoxicillin/Potassium Clav (AMOX TR-K CLV 500-125 MG TAB) 1 Each Tablet, 1 TAB PO BID for cellulitis for 10 Days, #20 TAB Prov:DE RANGEL MD 09/06/18 DE RANGEL MD December 01, 2018 12:10
[2018-12-01 14:58] VITALS: BP 132/80
--- NOTE | 2018-12-01 15:02 | NUR ---
SW following pt. Orders faxed to [facility] and packet on chart. Pt will transport via [facility] at 1500. Pt's choice and rights forms consented via phone by pt's daughter, Mili. Discussed with RN.
--- NOTE | 2018-12-01 15:05 | NUR ---
Patient discharged for transfer to [facility] in stable condition. Daughter packed up belongings in room, none left in room. Patient Xalatan eye drops were left however, and will be taken to [facility].
== END 2018-12-01 15:05 | DRG 640 ==
LOC: ER 08:46 → 6 SOUTH 11:17 → 5 NORTH 11-30 16:33
PROVIDERS: ADMIT Family Medicine; ATTEND Family Medicine
PROC: 4B02XSZ Measurement of Cardiac Pacemaker, External Approach (ICD-10-PCS; principal; 2018-11-28)
DX: E87.6 Hypokalemia (principal); N17.0 Acute kidney failure with tubular necrosis; N39.0 Urinary tract infection, site not specified; I50.42 Chronic combined systolic (congestive) and diastolic (congestive) heart failure; I13.0 Hypertensive heart and chronic kidney disease with heart failure and stage 1 through stage 4 chronic kidney disease, or unspecified chronic kidney disease; E87.1 Hypo-osmolality and hyponatremia; Z66 Do not resuscitate; S80.211A Abrasion, right knee, initial encounter; S51.811A Laceration without foreign body of right forearm, initial encounter; E86.0 Dehydration; R29.6 Repeated falls; E11.40 Type 2 diabetes mellitus with diabetic neuropathy, unspecified; E11.22 Type 2 diabetes mellitus with diabetic chronic kidney disease; H40.9 Unspecified glaucoma; F41.9 Anxiety disorder, unspecified; I08.1 Rheumatic disorders of both mitral and tricuspid valves; S00.03XA Contusion of scalp, initial encounter; M46.02 Spinal enthesopathy, cervical region; I49.5 Sick sinus syndrome; I48.0 Paroxysmal atrial fibrillation; T50.2X5A Adverse effect of carbonic-anhydrase inhibitors, benzothiadiazides and other diuretics, initial encounter; E78.5 Hyperlipidemia, unspecified; K59.09 Other constipation; W01.0XXA Fall on same level from slipping, tripping and stumbling without subsequent striking against object, initial encounter; Y93.01 Activity, walking, marching and hiking; M48.02 Spinal stenosis, cervical region; M48.061 Spinal stenosis, lumbar region without neurogenic claudication; M19.90 Unspecified osteoarthritis, unspecified site; H35.30 Unspecified macular degeneration; N18.3 Chronic kidney disease, stage 3 (moderate); I25.10 Atherosclerotic heart disease of native coronary artery without angina pectoris; Z95.2 Presence of prosthetic heart valve; Z90.49 Acquired absence of other specified parts of digestive tract; Z95.0 Presence of cardiac pacemaker; Z90.12 Acquired absence of left breast and nipple; Z85.3 Personal history of malignant neoplasm of breast; Z83.3 Family history of diabetes mellitus; Z88.6 Allergy status to analgesic agent; Z88.1 Allergy status to other antibiotic agents; Z88.5 Allergy status to narcotic agent; Z88.8 Allergy status to other drugs, medicaments and biological substances; Z87.01 Personal history of pneumonia (recurrent); Y92.89 Other specified places as the place of occurrence of the external cause; S00.11XA Contusion of right eyelid and periocular area, initial encounter
CPT/HCPCS: 36415; 70450; 72125; 73060; 80048; 80053; 80069; 81001; 82436; 82550; 82962; 83735; 83880; 83930; 83935; 84133; 84300; 84443; 85025; 85610; 87086; 93005; J1815; 97110; 97535; 99285-25